=== PATIENT | male | born 1945 | race Caucasian/White ===

== ENCOUNTER → 2022-02-20 13:53 | Outpatient (CLI) | payer MEDICARE, SELFPAY ==
--- NOTE | ~2022-02-20 | CT_ITS ---
EXAMINATION: CT abdomen pelvis w con DATE: 02/20/2022 14:20 INDICATION: Leukocytosis. TECHNIQUE: Computed tomography (CT) of the abdomen and pelvis was performed with 100 mL Omnipaque 350 intravenous contrast. Automated exposure control and iterative reconstruction technique were employe d. The dose-length product was 1181.36 mGy-cm. COMPARISON: None. FINDINGS: The visualized portions of the lung bases are clear without pneumonia or pleural effusion. The heart size is normal. There are coronary artery calcifications. No pericardial effusion. There ar e pacer wires in right atrium and right ventricle. There are changes of median sternotomy. Right-side d gynecomastia is noted. The liver is normal. There are changes of cholecystectomy. There is an 8 mm low-attenuation lesion in the spleen, likely benign. The pancreas, adrenal glands, and kidneys are no rmal. There are scattered diverticula in the colon. There is fat stranding around a diverticulum of s igmoid colon with local bowel wall thickening, consistent with diverticulitis. There are no dilated l oops of bowel. The appendix is not visualized. There are no pathologically enlarged lymph nodes. Ther e is no free intraperitoneal fluid. There are old healed bilateral rib fractures. There is severe low er lumbar spondylosis. IMPRESSION: 1. Acute sigmoid diverticulitis. No perforation or abscess. Reviewed, dictated and finalized at location A.
[2022-02-20 14:13] LABS: Estimated Glomerular Filt Rate > 60
== END ==
PROVIDERS: Visit Provider Nurse Practitioner Gerontology
DX: K57.32 Diverticulitis of large intestine without perforation or abscess without bleeding (principal); D72.829 Elevated white blood cell count, unspecified; I25.10 Atherosclerotic heart disease of native coronary artery without angina pectoris; Z90.49 Acquired absence of other specified parts of digestive tract; M47.816 Spondylosis without myelopathy or radiculopathy, lumbar region
CPT/HCPCS: 74177; Q9967

== ENCOUNTER 2022-02-20 14:57 | Emergency (ER) | payer MEDICARE, SELFPAY ==
[2022-02-20] VITALS (11 sets, daily range): BP systolic 123–143; BP diastolic 61–71; PULSE 67–87; RESP 18–20; TEMP 36; O2SAT 93–97
--- NOTE | 2022-02-20 15:17 | ED.ABDPAIN ---
HPI - Abdominal Pain General Chief Complaint: Abdominal Pain Stated Complaint: diverticulitis Time Seen by Provider: 02/20/22 15:17 Source: patient Mode of arrival: ambulatory Limitations: no limitations History of Present Illness HPI narrative: Patient is a 76-year-old male with history of hypertension, presenting to the emergency department for evaluation of left lower quadrant abdominal pain. Patient developed symptoms 72 hours ago, was prophylactically placed on Cipro/Flagyl per his primary care physician's office, outpatient CT scan was ordered today which is notable for acute uncomplicated sigmoid diverticulitis, obtained at 2:45 PM on todayFebruary 20. Patient was ultimately referred to this facility for evaluation of his left lower quadrant abdominal pain by the nurse practitioner. Patient denies fever, chills, nausea or vomiting. Patient denies any dysuria or hematuria. He reports mild aching in the left flank but denies any history of nephrolithiasis. Patient is tolerating oral intake. He has not been taking anything for pain. He has only had 1 day of the Cipro/Flagyl. Related Data Allergies Allergy/AdvReac Type Severity Reaction Status Date / Time penicillin G Allergy Mild hives Verified 02/20/22 17:48 Penicillins Allergy Mild hives Verified 02/20/22 17:48 Review of Systems Review of Systems: CONSTITUTIONAL: Denies fever, chills, or sweats. EYES: Denies visual changes, redness, or discharge. ENT: Denies rhinorrhea, congestion, sore throat, or otalgia. CARDIOVASCULAR: Denies chest pain, palpitations, or edema. RESPIRATORY: Denies cough or dyspnea. GASTROINTESTINAL: Reports left lower quadrant abdominal pain without nausea, vomiting or diarrhea GENITOURINARY: Denies dysuria or hematuria. SKIN: Denies rash or itching. MUSCULOSKELETAL: Denies back pain, joint pain, or myalgia. NEUROLOGIC: Denies headache, numbness, or weakness. 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 History of [place] (myocardial infarction) History of stress test Major depressive disorder, recurrent, moderate MDD (major depressive disorder) Mixed hyperlipidemia Myocardial infarction Neuropathy Obesity (BMI 30-39.9) Presence of cardiac pacemaker Restless leg syndrome Surgical History Surgical History Bariatric surgery status History of left mastectomy S/P CABG x 3 S/P coronary artery stent placement Family History Family History Sibling Patient's sister is in good health Father Cerebrovascular accident Patient's father is Other Family history of cardiovascular disease Social History Social History Social History: Smoking status: Former smoker Tobacco type: cigarettes Second hand tobacco smoke exposure: No Smoking end date: 11/25/95 Alcohol intake: current Drinks per week: 5 Substance use: never Substance use type: does not use Gender identity (if verbalized by the patient): Male Sexual Orientation (if Verbalized by the Patient): Straight or Heterosexual Exam Narrative: GENERAL: Awake, alert, conversant HEAD: Normocephalic, atraumatic. EYES: PERRLA and EOMI. ENT: Nares clear, no rhinorrhea or epistaxis. Mucous membranes moist. NECK: Supple. CHEST: No respiratory distress, breathing even and non labored HEART: Regular rate, sinus rhythm ABDOMEN: Obese, Non distended, nontender in the right upper quadrant, right lower quadrant, left upper quadrant. There is tenderness without rebound in the left lower quadrant. No guarding, nonrigid. EXTREMITIES:
[2022-02-20] MEDS: SODIUM CHLORIDE 0.9% IV 1,000 ML 999 ML IV CONT ×2 (16:44→18:14)
[2022-02-20 17:06] LABS: Basophils Absolute Auto 0.1 K/mm3 (0.0-0.1); Basophils Percent Auto 0.4 % (0.2-1.2); Eosinophils Absolute Auto 0.2 K/mm3 (0-0.3); Eosinophils Percent Auto 1.5 % (0-4.4); Hematocrit 41.6 % (42.0-52.0); Hemoglobin 13.1 g/dL (14.0-18.0); Immature Granulocyte Absolute 0.07 K/mm3 (0.00-0.031); Immature Granulocyte Percent A 0.5 % (0-0.5); Lymphocytes Absolute Auto 2.19 K/mm3 (0.9-3.2); Lymphocytes Percent Auto 15.5 % (18.3-44.2); Mean Corpuscular HGB Conc 31.5 g/dl (32-36); Mean Corpuscular Hemoglobin 28.1 pg (26-34); Mean Corpuscular Volume 89.3 fl (80-100); Mean Platelet Volume 9.4 fl (7.4-10.4); Monocytes Percent Auto 7.1 % (2.6-8.5); Neutrophils Absolute Auto 10.6 K/mm3 (1.3-6.7); Platelet Count Result 224 k/mm3 (150-375); Red Blood Count 4.66 M/mm3 (4.6-6.20); Red Cell Distribution Width 13.2 % (11.5-14.5); White Blood Count 14.1 K/mm3 (4.5-10.0)
[2022-02-20 17:18] LABS: Alanine Aminotransferase 21 U/L (4-50); Albumin Level 4.2 g/dL (3.5-5.1); Alkaline Phosphatase 91 U/L (38-126); Anion Gap 7 mmol/L (8-16); Aspartate Amino Transferase 29 U/L (17-59); Bilirubin,Total 0.6 mg/dL (0.2-1.3); Blood Urea Nitrogen 21 mg/dL (9-20); Calcium 8.4 mg/dL (8.4-10.2); Carbon Dioxide 28 mmol/L (22-30); Chloride 103 mmol/L (98-107); Estimated CRCL calculation 94 ml/min; Estimated Glomerular Filt Rate > 60; Glucose 105 mg/dL (65-110); Lipase 98 U/L (23-300); Potassium 4.3 mmol/L (3.4-5.0); Sodium 138 mmol/L (137-145)
[2022-02-20] MEDS: oxyCODONE/ACETAMINOPHEN (*CRX) 5-325 MG TABLET 1 TABLET PO (18:13)
[2022-02-20 18:23] LABS: Appearance Urine Clear (Clear); Bilirubin Urine 1+ (Negative); Blood Urine 2+ (Negative); Color Urine Yellow (Yellow); Glucose Urine UA Negative (Negative); Ketones Urine Negative (Negative); Leukocyte Esterase Ur Negative LEU/UL (Negative); Nitrate Urine Negative (Negative); Protein Urine Trace mg/dL (Negative); Urobilinogen Urine 0.2 mg/dL (<2.0); pH Urine 5.5 (5.0-9.0)
[2022-02-20 18:29] LABS: Mucus Urine Rare /lpf; RBC Urine 0-2 /hpf (0-2); Squamous Epithelial Cell Urine Rare /hpf (Few); WBC Urine 0-3 /hpf
[2022-02-20 18:30] LABS: Add Urine Microscopic? YES
== END 2022-02-20 19:10 | disposition home or self-care (01) ==
LOC: ANHED 17:53
PROVIDERS: Emergency Provider Emergency Medicine; PCP Family Medicine
DX: K57.92 Diverticulitis of intestine, part unspecified, without perforation or abscess without bleeding (principal); R31.9 Hematuria, unspecified; I10 Essential (primary) hypertension; N40.0 Benign prostatic hyperplasia without lower urinary tract symptoms; I25.10 Atherosclerotic heart disease of native coronary artery without angina pectoris; K21.9 Gastro-esophageal reflux disease without esophagitis; I25.2 Old myocardial infarction; E78.2 Mixed hyperlipidemia; E66.9 Obesity, unspecified; Z68.38 Body mass index [BMI] 38.0-38.9, adult; Z95.0 Presence of cardiac pacemaker; G25.81 Restless legs syndrome; Z98.84 Bariatric surgery status; Z95.5 Presence of coronary angioplasty implant and graft; Z95.1 Presence of aortocoronary bypass graft; Z87.891 Personal history of nicotine dependence
CPT/HCPCS: 36415; 80053; 81001; 83690; 85025; 96361; 96365; 99284; A9270; J0131; J7030

== ENCOUNTER 2022-04-21 10:09 | Emergency (ER) | payer MEDICARE, SELFPAY ==
[2022-04-21 10:20] VITALS: BP 91/71; PULSE 81; RESP 20; TEMP 36.3; O2SAT 97
--- NOTE | 2022-04-21 10:51 | ED.URI ---
HPI - URI/Sore Throat General Chief Complaint: Upper Respiratory Infection Stated Complaint: cough, cold symptoms Time Seen by Provider: 04/21/22 10:41 Source: patient Mode of arrival: ambulatory Limitations: no limitations History of Present Illness HPI Narrative: Patient presents today complaining of 4-day history of nonproductive cough, body aches, low-grade fever up to 100, chest congestion, fatigue. Patient just returned from a golfing trip in [place] prior to onset of symptoms. He has been taking Aleve without relief. He has been vaccinated and boosted against COVID-19. Denies shortness of breath or chest pain. Denies history of COPD or asthma. He is a non-smoker. Related Data Allergies Allergy/AdvReac Type Severity Reaction Status Date / Time penicillin G Allergy Mild hives Verified 04/21/22 10:24 Penicillins Allergy Mild hives Verified 04/21/22 10:24 Review of Systems Review of Systems: CONSTITUTIONAL: + Body aches, fatigue, fever EYES: Denies visual changes, redness, or discharge. ENT: Denies rhinorrhea, sore throat, or otalgia.+ Congestion CARDIOVASCULAR: Denies chest pain, palpitations, or edema. RESPIRATORY: Denies dyspnea.+ Cough GASTROINTESTINAL: Denies abdominal pain, nausea, vomiting, or diarrhea. GENITOURINARY: Denies dysuria or hematuria. SKIN: Denies rash, itching, or wounds. MUSCULOSKELETAL: Denies back pain, joint pain, or myalgia. NEUROLOGIC: Denies headache, numbness, tingling, or weakness. PSYCH: Denies depression or anxiety. 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 History of [place] (myocardial infarction) History of stress test Major depressive disorder, recurrent, moderate MDD (major depressive disorder) Mixed hyperlipidemia Myocardial infarction Neuropathy Obesity (BMI 30-39.9) Presence of cardiac pacemaker Restless leg syndrome Surgical History Surgical History Bariatric surgery status History of left mastectomy S/P CABG x 3 S/P coronary artery stent placement Family History Family History Sibling Patient's sister is in good health Father Cerebrovascular accident Patient's father is Other Family history of cardiovascular disease Social History Social History Social History: Smoking status: Former smoker Tobacco type: cigarettes Second hand tobacco smoke exposure: No Smoking end date: 11/25/95 Alcohol intake: current Drinks per week: 5 Substance use: never Substance use type: does not use Gender identity (if verbalized by the patient): Male Sexual Orientation (if Verbalized by the Patient): Straight or Heterosexual Comments At time of signature, I have reviewed and agree with nursing past medical, surgical, social and family history unless otherwise noted. Please see nursing chart for further information. There is no relevant family history pertinent to the presenting complaint Exam Narrative: GENERAL: Mildly ill-appearing, well-nourished, and in no acute distress. HEAD: Normocephalic, atraumatic. EYES: EOMI. No redness or drainage. Conjunctivae normal. ENT: Mucous membranes pink and moist. Nares congested.. No rhinorrhea. TMs normal bilaterally. Throat normal. Uvula midline. NECK: Normal AROM. Supple. No lymphadenopathy. CHEST: No respiratory distress. Clear to auscultation. HEART: Regular rate and rhythm. No murmur appreciated. Normal peripheral pulses. EXTREMITIES: Normal range of motion. No edema. SKIN: Warm, dry, no rash. Capillary refill normal. Norm
== END 2022-04-21 11:07 | disposition home or self-care (01) ==
PROVIDERS: Emergency Provider Nurse Practitioner
DX: U07.1 COVID-19 (principal); N40.0 Benign prostatic hyperplasia without lower urinary tract symptoms; K21.9 Gastro-esophageal reflux disease without esophagitis; I25.2 Old myocardial infarction; E78.2 Mixed hyperlipidemia; G25.81 Restless legs syndrome; Z95.0 Presence of cardiac pacemaker; E66.9 Obesity, unspecified; Z68.36 Body mass index [BMI] 36.0-36.9, adult; G62.9 Polyneuropathy, unspecified; I25.10 Atherosclerotic heart disease of native coronary artery without angina pectoris; I10 Essential (primary) hypertension; F32.9 Major depressive disorder, single episode, unspecified
CPT/HCPCS: 87426; 99212; C9803; G0463

== ENCOUNTER 2025-04-30 06:47 | Outpatient (CLI) | payer MEDICARE, SELFPAY ==
--- NOTE | ~2025-04-30 | XR_ITS ---
XR hand BI arthritis min 3V 04/30/2025 07:14 Indication: Osteoarthritis. Procedure: 4 views each hand Comparison: No prior studies for comparison. Findings: Right: There is moderate polyarticular osteoarthritis. Degenerative changes most pronounced at the fi rst carpometacarpal and fifth interphalangeal joints. No acute fracture or traumatic malalignment. Left: There is moderate-severe polyarticular osteoarthritis, most pronounced at the first carpometaca rpal, first metacarpal phalangeal and second-fifth distal interphalangeal joints. No focal soft tissu e abnormality. No acute fracture. 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 Reviewed, dictated and finalized at location A. 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
--- OUTSIDE RECORDS SUMMARY | 2025-04-30 06:51 | XMS_ITS | CONTINUITY OF CARE DOCUMENT ---
Author Name suzannerobson suzannerobson Address Unknown Organization [facility] Address [address] [place] [address] Phone [phone] Care Team Providers Care Director Of Perioperative Services Name Role Phone Scott HASSAN, Shaq Unavailable [phone] BJ TORRES MD Unavailable [phone] BJ TORRES MD Unavailable [phone] PROBLEMS Condition Status Date Provider Notes Pacemaker: active Shaq Chavez MD (Sta tus post) Aftercare healing traumatic arm fracture active Shaq Chavez MD Cardiomyopathy active Shaq Chavez MD Sick sinus syndrome active Sunshine Lopez S/P Dual chamb PCM - Biotronik ( MRI Safe) active Linda Prescott Coronary Heart Disease active ? Shaq olguin MD Myocardial Infarction active ? Shaq nino MD (History of) Hyperlipidemia active ? Shaq Chavez MD Hypertension active ? Shaq Chavez MD Tobacco use, quit active Shaq Chavez MD Bradycardia sinus active Shaq Chavez MD Chest pain-type to be determined completed - David C Patience Angina active Jose Castaneda [employer] Obesity active Jose Castaneda [employer] Cough completed - David C Patience Shortness of breath active Madiha Perales [employer] PVC's active Sunshine Lopez Carotid bruits, bilateral active Sunshine Lopez Chest tightness completed - David Morin CABGx3 active Sunshine Lopez Syncope active Sunshine Lopez Dizziness active Taewon John Alcohol abuse active Yaakov Weaver Cardiology examination active Mat Morin ENCOUNTERS Date Type Provider Location Encounter Diag nosis - In-person encounter Office Visit Shaq Chavez MD [facility] Cardiology examination - In-person encounter Office Visit Shaq Chavez MD [facility] - In-person encounter Office Visit Shaq Chavez MD [facility] Alcohol abuse - In-person encounter Office Visit Shaq Chavez MD [facility] - In-person encounter Office Visit Shaq Chavez MD [facility] - In-person encounter Office Visit Shaq Chavez MD [facility] - In-person encounter Office Visit Shaq Chavez MD [facility] - In-person encounter Office Visit Shaq Chavez MD [facility] - In-person encounter Office Visit Shaq Chavez MD [facility] SyncopeDizziness - In-person encounter Office Visit Shaq Chavez MD [facility] - In-person encounter Office Visit Shaq Chavez MD [facility] CABGx3 - In-person encounter Office Visit Shaq Chavez MD [facility] Chest pain-type to be determinedCoughChe st tightness - In-person encounter Office Visit Shaq Chavez MD [facility] - In-person encounter Office Visit Shaq Chavez MD [facility] PVC'sCarotid bruits, bilateral - In-person encounter Office Visit Shaq Chavez MD [facility] - In-person encounter Office Visit Shaq Chavez MD [facility] - In-person encounter Office Visit Shaq Chavez MD [facility] Shortness of breath - In-person encounter Office Visit Shaq Chavez MD [facility] AnginaObesity - In-person encounter Office Visit Shaq Chavez MD [facility] - In-person encounter Office Visit Shaq Chavez MD [facility] - In-person encounter Office Visit Shaq Chavez MD [facility] - In-person encounter Office Visit Shaq Chavez MD [facility] Coronary Heart DiseaseMyocardial InfarctionHyperlipidemiaHypertensionTobacco use, quitBradycardia sinus VITAL SIGNS Date Observation Value Provider Body Mass Index (Ratio) 35.56 kg/m2 Franck palma Patience blood pressure, diastolic 74 mm[Hg] [facility] blood pressure, systolic 107 mm[Hg] Jennifer la [facility] oxygen saturation, oximetry 91 % [facility] pulse rate 81 /min [facility] blood [facility], cuff size regular [facility] weight E&M 277 [lb_av] [facility] height E&M 74 [in_i] [facility] Body Mass Index (Ratio) 36.97 kg/m2 Dayday Chavez MD blood pressure, diastolic 75 mm[Hg] Ke rri Greleazarneinaalida blood pressure, systolic 120 mm[Hg] Ker ri Grueneinaelder oxygen saturation, oximetry 94 % Anjelica Piterricinaalida pulse rate 87 /min [facility] weight E&M 288 [lb_av] [facility] height E&M 74 [in_i] Anjelica [facility] Body Mass Index (Ratio) 37.10 kg/m2 Yaakov Weaver blood pressure, resting Yes eJnn Breen [employer] blood pressure, cuff size large Ke rri Grueneinaeld blood pressure, diastolic 76 mm[Hg] Ke rri Grueneinaeld blood pressure, systolic 124 mm[Hg] Trent ri Betoeleazarricinaalida oxygen saturation, oximetry 93 % Anjelica Betosharonaalida respiratory rate E&M 16 /min Anjelica Sabrina finch pulse rate 98 /min Anjelica [facility] weight E&M 289 [lb_av] Anjelica [facility] height E&M 74 [in_i] Anjelica [facility] Body Mass Index (Ratio) 36.46 kg/m2 Yaakov Weaver blood pressure, diastolic 78 mm[Hg] An raiza Culp blood pressure, systolic 123 mm[Hg] Any heriberto Culp pulse rate 86 /min Valeria Culp blood pressure, cuff size large An raiza Culp oxygen saturation, oximetry 96 % Valeria Culp weight E&M 284 [lb_av] Valeria Culp height E&M 74 [in_i] Valeria Robbi Body Mass Index (Ratio) 36.32 kg/m2 Yaakov Weaver blood pressure, diastolic 81 mm[Hg] St lerma Benjamin blood pressure, systolic 106 mm[Hg] Faith vargas Benjamin oxygen saturation, oximetry 96 % Lara Benjamin respiratory rate E&M 18 /min Lara Demario jones pulse rate 90 /min Lara Benjamin weight E&M 282.9 [lb_av] Lara Benjamin height E&M 74 [in_i] Laraalicia Alexander Body Mass Index (Ratio) 37.36 kg/m2 Dayday Chavez MD blood pressure, cuff size large Ke rri Gruenenfalida blood pressure, diastolic 86 mm[Hg] Ke rri Gruenenfelder blood pressure, systolic 123 mm[Hg] Ker ri Gruenenfalida oxygen saturation, oximetry 96 % Anjelica Gruenenfalida respiratory rate E&M 16 /min Anjelica G richieeneinaelder pulse rate 76 /min Anjelica Grsharonae rosier weight E&M 291 [lb_av] Anjelica Gruenenfe lder height E&M 74 [in_i] Anjelica Gruenenfe lder Body Mass Index (Ratio) 38.51 kg/m2 Yaakov Weaver blood pressure, cuff size large Ke rri Gruenenfelder blood pressure, diastolic 80 mm[Hg] Ke rri Gruenenfelder blood pressure, systolic 122 mm[Hg] Ker ri Gruenenfelder oxygen saturation, oximetry 97 % Anjelica Gruenenfelder respiratory rate E&M 16 /min Anjelica G ruenenfelder pulse rate 93 /min Anjelica Emae lder weight E&M 300 [lb_av] Anjelica Emae lder height E&M 74 [in_i] Anjelica Emae er Body Mass Index (Ratio) 37.10 kg/m2 Taew on blood pressure, diastolic 76 mm[Hg] Li nkLogic blood pressure, systolic 124 mm[Hg] Belkis kLogic blood pressure, cuff size large Ke rri Gruenenfelder blood pressure, diastolic 76 mm[Hg] Ke rri Gruenenfelder blood pressure, systolic 124 mm[Hg] Trent Pérezeleazarmiguelelder oxygen saturation, oximetry 95 % Anjelica Booliuer respiratory rate E&M 16 /min Anjelica asnchezelder pulse rate 87 /min Anjelica Easton er weight E&M 289 [lb_av] Anjelica [facility]on er height E&M 74 [in_i] Anjelica Easton er blood pressure, diastolic 60 mm[Hg] Saroj Tan blood pressure, systolic 16 mm[Hg] Felicia Tan oxygen saturation, oximetry 94 % Betzaida Tan respiratory rate E&M 16 /min Doreen Tan pulse rate 43 /min Betzaida olsen weight E&M 289 [lb_av] Rey fragoso Body Mass Index (Ratio) 37.10 kg/m2 Taew on blood pressure, cuff size large Ke rri Gruenenfelder blood pressure, diastolic 70 mm[Hg] Ke rri Gruenenfelder blood pressure, systolic 102 mm[Hg] Ker ri Gruenenfelder oxygen saturation, oximetry 97 % Anjelica Gruenenfelder respiratory rate E&M 16 /min Anjelica G ruenenfelder pulse rate 68 /min [facility] weight E&M 289 [lb_av] Anjelica [facility] height E&M 74 [in_i] Anjelica [facility] Body Mass Index (Ratio) 39.67 kg/m2 [place] John blood pressure, cuff size regular [facility] blood pressure, diastolic 80 mm[Hg] [facility] blood pressure, systolic 140 mm[Hg] [facility] pulse rate 72 /min [facility] oxygen saturation, oximetry 94 % [facility] respiratory rate E&M 18 /min [facility] height E&M 74 [in_i] [facility] weight E&M 309 [lb_av] [facility] Body Mass Index (Ratio) 39.93 kg/m2 [place] blood pressure, cuff size large Ke rri Gruenenfelder blood pressure, diastolic 82 mm[Hg] Ke rri Gruenenfelder blood pressure, systolic 122 mm[Hg] Ker ri Gruenenfelder oxygen saturation, oximetry 93 % Anjelica Gruenenfelder respiratory rate E&M 16 /min Anjelica G ruenenfelder pulse rate 73 /min Anjelica [facility] weight E&M 311 [lb_av] Anjelica [facility] height E&M 74 [in_i] Anjelica Easton lder Body Mass Index (Ratio) 38.13 kg/m2 [place] John blood pressure, cuff size regular Cy aspen Taylor blood pressure, diastolic 79 mm[Hg] Cy aspen Taylor blood pressure, systolic 146 mm[Hg] Maddie alina Taylor oxygen saturation, oximetry 92 % Magoalina Taylor respiratory rate E&M 16 /min Magoalina Taylor pulse rate 84 /min Mago espinoza weight E&M 297 [lb_av] Mago espinoza height E&M 74 [in_i] Mago espinoza Body Mass Index (Ratio) 39.03 kg/m2 Jord en Anthony respiratory rate E&M 16 /min Mago Taylor pulse rate 60 /min Mago espinoza oxygen saturation, oximetry 93 % Mago Taylor blood pressure, cuff size regular Cy aspen Taylor blood pressure, diastolic 68 mm[Hg] Cy aspen Taylor blood pressure, systolic 140 mm[Hg] Maddie Taylor weight E&M 304 [lb_av] Mago espinoza height E&M 74 [in_i] Mago espinoza Body Mass Index (Ratio) 39.93 kg/m2 Aditya n Jamaalte blood pressure, diastolic 70 mm[Hg] Ke rri Gruenenfliuer blood pressure, systolic 122 mm[Hg] Trent ri Mani blood pressure, cuff size large Ke rri Gruenenfelder oxygen saturation, oximetry 96 % Anjelica Singleton respiratory rate E&M 20 /min Anjelica elizabeth pulse rate 79 /min Anjelica Easton lder weight E&M 311 [lb_av] Anjelica Pérezeleazarmiguelester er height E&M 74 [in_i] Anjelica Pérezsharonaester er Body Mass Index (Ratio) 38.90 kg/m2 Dayday Chavez MD blood pressure, diastolic 70 mm[Hg] Saroj rouse [facility] blood pressure, systolic 102 mm[Hg] Felicia sha [facility] oxygen saturation, oximetry 97 % Pretty [facility] respiratory rate E&M 18 /min Pretty [facility] pulse rate 73 /min Pretty [facility] weight E&M 303 [lb_av] Pretty [place] height E&M 74 [in_i] Pretty [place] Body Mass Index (Ratio) 39.03 kg/m2 Dayday Chavez MD blood pressure, cuff size regular [facility] blood pressure, diastolic 70 mm[Hg] [facility] blood pressure, systolic 112 mm[Hg] [facility], [facility] 97 % [facility] respiratory rate E&M 17 /min [facility] pulse rate 56 /min [facility] weight E&M 304 [lb_av] [facility] [in_i] [facility] Body Mass Index (Ratio) 39.16 kg/m2 Dayday Chavez MD blood pressure, diastolic 70 mm[Hg] Saroj rouse [facility] blood pressure, systolic 110 mm[Hg] Felicia solano [facility] oxygen saturation, oximetry 96 % Pretty [facility] respiratory rate E&M 18 /min Pretty [facility] pulse rate 69 /min Pretty [place] weight E&M 305 [lb_av] Pretty Arreguin height E&M 74 [in_i] Pretty Arreguin Body Mass Index (Ratio) 39.54 kg/m2 Dayday Chavez MD blood pressure, resting Yes Zandra hinton [place] blood pressure, diastolic 82 mm[Hg] Kashmir samuel [place] blood pressure, systolic 120 mm[Hg] Dianna edward [place] oxygen saturation, oximetry 95 % [facility] 16 /[facility] 68 /[facility] E&M 308 [lb_av] Gordon [place] height E&M 74 [in_i] Jessica [place] blood pressure, diastolic 60 mm[Hg] Saroj Melonie Tan blood pressure, systolic 146 mm[Hg] Felicia Tan pulse rate 59 /min Betzaida olsen oxygen saturation, oximetry 94 % Betzaida Tan respiratory rate E&M 18 /min Doreen Tan Body Mass Index (Ratio) 39.05 kg/m2 Ivania Tan weight E&M 304.2 [lb_av] Betzaida greco height E&M 74 [in_i] Betzaida olsen ALLERGIES Allergy Name Onset Date Reaction Criticality Status GRASS Low Criticality active PENICILLIN Low Criticality active RESULTS Date Observation Value Provider Reference Range Interpretation Location prostate specific antigen (PSA) complex 1.4 ng/mL [facility] 0.0-3.6 magnesium, serum 2.3 mg/dL [facility] 1.6-2.3 alanine aminotransferase (SGPT), serum 25 1/L [facility] 0-44 aspartate aminotransferase (SGOT), serum 29 1/L [facility] 0-40 alkaline phosphatase, serum 71 1/L [facility] 44-121 bilirubin, serum, total 0.4 mg/dL [facility] 0.0-1.2 globulin, serum 2.6 [facility] 1.5-4.5 albumin, serum 4.0 g/dL [facility] 3.7-4.7 protein, total, serum 6.6 g/dL [facility] 6.0-8.5 calcium, serum 9.1 mg/dL [facility] 8.6-10.2 carbon dioxide, venous blood 26 mmol/L [facility] 20-29 chloride, serum 100 mmol/L [facility] 96-106 potassium, serum 4.9 mmol/L [facility] 3.5-5.2 sodium, serum 138 mmol/L [facility] 218-200 9896/10 /17 urea nitrogen/creatinine ratio, serum 15 [facility] 10-24 creatinine, serum 0.95 mg/dL [facility] 0.76-1.27 urea nitrogen, blood 14 mg/dL [facility] 8-27 blood glucose, random 159 mg/dL [facility] 70-99 High prostate specific antigen (PSA) complex 1.2 ng/mL [facility] 0.0-3.6 platelet count 243 X10E3/UL [facility] 021-526 4174/08 /10 red blood cell distribution width 13.7 % [facility] 11.6-15.4 mean corpuscular hemoglobin concentration, RBC 33.3 G/DL [facility] 31.5-35.7 mean corpuscular hemoglobin, RBC 29.1 pg [facility] 26.6-33.0 mean corpuscular volume, RBC 87 fL [facility] 79-97 hematocrit, blood 40.2 % [facility] 37.5-51.0 hemoglobin, blood 13.4 g/dL [facility] 13.0-17.7 erythrocyte (RBC) count 4.61 X10E6/UL [facility] 4.14-5.80 leukocyte count, blood 10.2 X10E3/UL [facility] 3.4-10.8 magnesium, serum 2.8 mg/dL [facility] 1.6-2.3 High free thyroxine index 2.0 [facility] 1.2-4.9 triiodothyronine resin uptake 30 % [facility] 24-39 thyroxine, serum, total 6.6 ug/dL [facility] 4.5-12.0 thyroid stimulating hormone, serum 2.550 u[IU]/mL [facility] 0.450-4.500 lipoprotein, beta, serum, point, quantitative, calculated 56 mg/dL [facility] 0-99 HDL cholesterol, serum 31 mg/dL [facility] >39 Low triglyceride, serum, random 135 mg/dL [facility] 0-149 cholesterol, serum 111 mg/dL [facility] 361-661 6679/08 /10 alanine aminotransferase (SGPT), serum 18 1/L [facility] 0-44 aspartate aminotransferase (SGOT), serum 20 1/L [facility] 0-40 alkaline phosphatase, serum 93 1/L [facility] 44-121 bilirubin, serum, total 0.5 mg/dL [facility] 0.0-1.2 albumin/globulin ratio, serum 1.8 [facility] 1.2-2.2 globulin, serum 2.4 [facility] 1.5-4.5 albumin, serum 4.2 g/dL [facility] 3.7-4.7 protein, total, serum 6.6 g/dL [facility] 6.0-8.5 calcium, serum 9.0 mg/dL [facility] 8.6-10.2 carbon dioxide, venous blood 24 mmol/L [facility] 20-29 chloride, serum 102 mmol/L [facility] 96-106 potassium, serum 5.1 mmol/L [facility] 3.5-5.2 sodium, serum 141 mmol/L [facility] 020-162 7634/08 /10 urea nitrogen/creatinine ratio, serum 27 [facility] 10-24 High creatinine, serum 1.16 mg/dL [facility] 0.76-1.27 urea nitrogen, blood 31 mg/dL [facility] 8-27 High blood glucose, random 114 mg/dL [facility] 65-99 High free thyroxine index 1.4 [facility] 1.2-4.9 triiodothyronine resin uptake 29 % [facility] 24-39 thyroxine, serum, total 4.9 ug/dL [facility] 4.5-12.0 thyroid stimulating hormone, serum 17.400 u[IU]/mL [facility] 0.450-4.500 High activated partial thromboplastin time (aPTT) 33 s [facility] 24-33 prothrombin time (patient) 10.9 s [facility] 9.1-12.0 international normalized ratio (INR) 1.0 [facility] 0.9-1.2 platelet count 242 X10E3/UL [facility] 782-797 9182/07 /03 red blood cell distribution width 12.6 % [facility] 11.6-15.4 mean corpuscular hemoglobin concentration, RBC 31.1 G/DL [facility] 31.5-35.7 Low mean corpuscular hemoglobin, RBC 27.4 pg [facility] 26.6-33.0 mean corpuscular volume, RBC 88 fL [facility] 79-97 hematocrit, blood 37.9 % [facility] 37.5-51.0 hemoglobin, blood 11.8 g/dL [facility] 13.0-17.7 Low erythrocyte (RBC) count 4.30 X10E6/UL [facility] 4.14-5.80 leukocyte count, blood 7.6 X10E3/UL [facility] 3.4-10.8 alanine aminotransferase (SGPT), serum 14 1/L [facility] 0-44 aspartate aminotransferase (SGOT), serum 22 1/L [facility] 0-40 alkaline phosphatase, serum 73 1/L [facility] 48-121 bilirubin, serum, total <0.2 mg/dL [facility] 0.0-1.2 albumin/globulin ratio, serum 1.2 [facility] 1.2-2.2 globulin, serum 3.1 [facility] 1.5-4.5 albumin, serum 3.8 g/dL [facility] 3.7-4.7 protein, total, serum 6.9 g/dL [facility] 6.0-8.5 calcium, serum 9.0 mg/dL [facility] 8.6-10.2 carbon dioxide, venous blood 26 mmol/L [facility] 20-29 chloride, serum 102 mmol/L [facility] 96-106 potassium, serum 5.3 mmol/L [facility] 3.5-5.2 High sodium, serum 141 mmol/L [facility] 194-137 3820/07 /03 urea nitrogen/creatinine ratio, serum 21 [facility] 10-24 eGFR if 76 mL/min/{1.73_ m2} [facility] >59 eGFR if not 66 mL/min/{1.73_ m2} [facility] >59 creatinine, serum 1.08 mg/dL [facility] 0.76-1.27 urea nitrogen, blood 23 mg/dL [facility] 8-27 blood glucose, random 103 mg/dL [facility] 65-99 High free thyroxine index 1.8 [facility] 1.2-4.9 triiodothyronine resin uptake 30 % [facility] 24-39 thyroxine, serum, total 5.9 ug/dL [facility] 4.5-12.0 thyroid stimulating hormone, serum 3.410 u[IU]/mL [facility] 0.450-4.500 lipoprotein, beta, serum, point, quantitative, calculated 50 mg/dL [facility] 0-99 HDL cholesterol, serum 32 mg/dL [facility] >39 Low triglyceride, serum, random 133 mg/dL [facility] 0-149 cholesterol, serum 106 mg/dL [facility] 222-558 2342/03 /13 alanine aminotransferase (SGPT), serum 16 1/L [facility] 0-44 aspartate aminotransferase (SGOT), serum 21 1/L [facility] 0-40 alkaline phosphatase, serum 76 1/L [facility] 39-117 bilirubin, serum, total 0.4 mg/dL [facility] 0.0-1.2 albumin/globulin ratio, serum 1.4 [facility] 1.2-2.2 globulin, serum 2.8 [facility] 1.5-4.5 albumin, serum 4.0 g/dL [facility] 3.7-4.7 protein, total, serum 6.8 g/dL [facility] 6.0-8.5 calcium, serum 9.2 mg/dL [facility] 8.6-10.2 carbon dioxide, venous blood 26 mmol/L [facility] 20-29 chloride, serum 103 mmol/L [facility] 96-106 potassium, serum 5.1 mmol/L [facility] 3.5-5.2 sodium, serum 143 mmol/L [facility] 365-008 3107/03 /13 urea nitrogen/creatinine ratio, serum 11 [facility] 10-24 eGFR if 91 mL/min/{1.73_ m2} [facility] >59 eGFR if not 79 mL/min/{1.73_ m2} [facility] >59 creatinine, serum 0.93 mg/dL [facility] 0.76-1.27 urea nitrogen, blood 10 mg/dL [facility] 8-27 blood glucose, random 113 mg/dL [facility] 65-99 High pro brain natriuretic peptide 628 pg/mL [facility] 0-486 High activated partial thromboplastin time (aPTT) 35 s [facility] 24-33 High prothrombin time (patient) 10.6 s [facility] 9.1-12.0 international normalized ratio (INR) 1.0 [facility] 0.9-1.2 platelet count 239 X10E3/UL [facility] 458-207 1797/03 /13 red blood cell distribution width 13.1 % [facility] 11.6-15.4 mean corpuscular hemoglobin concentration, RBC 31.4 G/DL [facility] 31.5-35.7 Low mean corpuscular hemoglobin, RBC 29.0 pg [facility] 26.6-33.0 mean corpuscular volume, RBC 92 fL [facility] 79-97 hematocrit, blood 41.7 % [facility] 37.5-51.0 hemoglobin, blood 13.1 g/dL [facility] 13.0-17.7 erythrocyte (RBC) count 4.52 X10E6/UL [facility] 4.14-5.80 leukocyte count, blood 8.9 X10E3/UL [facility] 3.4-10.8 prostate specific antigen (PSA) complex 0.8 ng/mL [facility] 0.0-3.6 lipoprotein, beta, serum, point, quantitative, calculated 60 mg/dL [facility] 0-99 very low density lipoproteins 36 mg/dL [facility] 5-40 HDL cholesterol, serum 37 mg/dL [facility] >39 Low triglyceride, serum, random 181 mg/dL [facility] 0-149 High cholesterol, serum 133 mg/dL [facility] 098-078 5984/08 /15 platelet count 257 X10E3/UL [facility] 841-674 2390/08 /15 red blood cell distribution width 12.6 % [facility] 11.6-15.4 mean corpuscular hemoglobin concentration, RBC 33.4 G/DL [facility] 31.5-35.7 mean corpuscular hemoglobin, RBC 30.6 pg [facility] 26.6-33.0 mean corpuscular volume, RBC 92 fL [facility] 79-97 hematocrit, blood 43.1 % [facility] 37.5-51.0 hemoglobin, blood 14.4 g/dL [facility] 13.0-17.7 erythrocyte (RBC) count 4.71 X10E6/UL [facility] 4.14-5.80 leukocyte count, blood 12.1 X10E3/UL [facility] 3.4-10.8 High alanine aminotransferase (SGPT), serum 22 1/L [facility] 0-44 aspartate aminotransferase (SGOT), serum 22 1/L [facility] 0-40 alkaline phosphatase, serum 77 1/L [facility] 39-117 bilirubin, serum, total 0.3 mg/dL [facility] 0.0-1.2 albumin/globulin ratio, serum 1.4 [facility] 1.2-2.2 globulin, serum 2.9 [facility] 1.5-4.5 albumin, serum 4.2 g/dL [facility] 3.7-4.7 protein, total, serum 7.1 g/dL [facility] 6.0-8.5 calcium, serum 9.0 mg/dL [facility] 8.6-10.2 carbon dioxide, venous blood 29 mmol/L [facility] 20-29 chloride, serum 98 mmol/L [facility] 96-106 potassium, serum 5.0 mmol/L [facility] 3.5-5.2 sodium, serum 139 mmol/L [facility] 185-198 2457/08 /15 urea nitrogen/creatinine ratio, serum 24 [facility] 10-24 eGFR if 85 mL/min/{1.73_ m2} [facility] >59 eGFR if not 74 mL/min/{1.73_ m2} [facility] >59 creatinine, serum 0.99 mg/dL [facility] 0.76-1.27 urea nitrogen, blood 24 mg/dL [facility] 8-27 blood glucose, random 78 mg/dL [facility] 65-99 prostate specific antigen (PSA) complex 0.6 ng/mL [facility] 0.0-3.6 alanine aminotransferase (SGPT), serum 13 1/L [facility] 9-46 Normal aspartate aminotransferase (SGOT), serum 19 1/L [facility] 10-35 Normal alkaline phosphatase, serum 77 1/L [facility] 40-115 Normal bilirubin, serum, total 0.4 mg/dL [facility] 0.2-1.2 Normal albumin/globulin ratio, serum 1.3 (calc) [facility] 1.0-2.5 Normal globulins, serum, total 2.9 G/DL (CALC) [facility] 1.9-3.7 Normal albumin, serum 3.9 g/dL [facility] 3.6-5.1 Normal protein, total, serum 6.8 g/dL [facility] 6.1-8.1 Normal calcium, serum 9.0 mg/dL [facility] 8.6-10.3 Normal carbon dioxide, venous blood 28 mmol/L [facility] 20-31 Normal chloride, serum 105 mmol/L [facility] 98-110 Normal potassium, serum 4.7 mmol/L [facility] 3.5-5.3 Normal sodium, serum 141 mmol/L [facility] 135-146 Normal urea nitrogen/creatinine ratio, serum NOT APPLICABLE (calc) [facility] 6-22 Estimated Glomerular Filtration Rate (calc) 96 mL/min/{1.73_ m2} [facility] > OR = 60 Normal creatinine, serum 0.91 mg/dL [facility] 0.70-1.18 Normal urea nitrogen, blood 21 mg/dL [facility] 7-25 Normal blood glucose, random 114 mg/dL [facility] 65-99 High cholesterol, non-HDL, total 111 MG/DL (CALC) [facility] <130 Normal cholesterol/HDL ratio, serum, percent 4.2 (calc) [facility] <5.0 Normal LDL cholesterol, serum 89 MG/DL (CALC) [facility] Normal triglyceride, serum, fasting 123 mg/dL [facility] <150 Normal HDL cholesterol, serum 35 mg/dL [facility] >40 Low cholesterol, serum 146 mg/dL [facility] <200 Normal lipoprotein, beta, serum, point, quantitative, calculated 83 mg/dL [facility] 0-99 very low density lipoproteins 24 mg/dL [facility] 5-40 HDL cholesterol, serum 35 mg/dL [facility] >39 Low triglyceride, serum, random 121 mg/dL [facility] 0-149 cholesterol, serum 142 mg/dL [facility] 313-331 4497/01 /09 basophil count, absolute 0.0 x10E3/uL [facility] 0.0-0.2 Eosinophil Absolute Count 0.2 X10E3/UL [facility] 0.0-0.4 monocyte count, blood, automated 0.7 X10E3/UL [facility] 0.1-0.9 lymphocyte count, blood, automated 2.2 X10E3/UL [facility] 0.7-3.1 Absolute Neutrophils 6.4 X10E3/UL [facility] 1.4-7.0 basophils as percent of blood leukocytes 0 % [facility] Not Estab. eosinophils as percent of blood leukocytes 2 % [facility] Not Estab. monocytes as percent of blood leukocytes 7 % [facility] Not Estab. lymphocytes as percent of blood leukocytes 23 % [facility] Not Estab. neutrophils as percent of blood leukocytes 68 % [facility] Not Estab. platelet count 237 X10E3/UL [facility] 231-350 7979/01 /09 red blood cell distribution width 13.7 % [facility] 12.3-15.4 mean corpuscular hemoglobin concentration, RBC 35.3 G/DL [facility] 31.5-35.7 mean corpuscular hemoglobin, RBC 30.4 pg [facility] 26.6-33.0 mean corpuscular volume, RBC 86 fL [facility] 79-97 hematocrit, blood 42.2 % [facility] 37.5-51.0 hemoglobin, blood 14.9 g/dL [facility] 13.0-17.7 erythrocyte (RBC) count 4.90 X10E6/UL [facility] 4.14-5.80 leukocyte count, blood 9.6 X10E3/UL [facility] 3.4-10.8 alanine aminotransferase (SGPT), serum 17 1/L [facility] 0-44 aspartate aminotransferase (SGOT), serum 24 1/L [facility] 0-40 alkaline phosphatase, serum 87 1/L [facility] 39-117 bilirubin, serum, total 0.4 mg/dL [facility] 0.0-1.2 albumin/globulin ratio, serum 1.3 [facility] 1.2-2.2 globulin, serum 3.4 [facility] 1.5-4.5 albumin, serum 4.3 g/dL [facility] 3.5-4.8 protein, total, serum 7.7 g/dL [facility] 6.0-8.5 calcium, serum 9.5 mg/dL [facility] 8.6-10.2 carbon dioxide, venous blood 26 mmol/L [facility] 18-29 chloride, serum 98 mmol/L [facility] 96-106 potassium, serum 4.7 mmol/L [facility] 3.5-5.2 sodium, serum 140 mmol/L [facility] 380-030 1190/01 /09 urea nitrogen/creatinine ratio, serum 21 [facility] 10-24 eGFR if not 74 mL/min/{1.73_ m2} [facility] >59 creatinine, serum 1.00 mg/dL [facility] 0.76-1.27 urea nitrogen, blood 21 mg/dL [facility] 8-27 blood glucose, random 112 mg/dL [facility] 65-99 High HISTORY OF MEDICATION USE Medication Status Instructions Dates Provider Indications Com ments metformin (Glucophage XR) 500 mg tablet extended release 24 hr active Edil Oakes levothyroxine 25 mcg tablet active Edil Oakes FeroSul 325 mg (65 mg iron) tablet active Edil Oakes losartan 50 mg tablet active Take 1 Tablet (50 mg) by mouth daily. 12/16 Kyamado Navarro magnesium oxide 400 mg (241.3 mg magnesium) tablet active Take 1 tablet by mouth twice a day Farheen Breen NP metoprolol succinate 25 mg tablet extended release 24 hr active Take 1 Tablet (25 mg) by mouth daily at bedtime. 01/10 Dima Aguilaram losartan 50 mg tablet completed Take 1/2 Tablet by mouth daily. 01/10 - 12/16 Dima Navarro Jardiance 10 mg tablet active Take 1 tablet by mouth every other day (due to the cost) 12/11 Farheen Breen NP atorvastatin 40 mg tablet active TAKE ONE TABLET BY MOUTH ONCE DAILY 06/27 Dima Navarro losartan 25 mg tablet completed Take 1 Tablet (50 mg) by mouth daily. 03/27 - 01/10 Anjelica Singleton Toprol XL 25 mg tablet extended release 24 hr completed Take 1 tablet by mouth at bedtime 03/22 - 01/10 Anjelica Gabbyer Jardiance 10 mg tablet completed Take 1 tablet by mouth once a day 07/17 - 12/11 Heaven Rushing Cardiomyopathy losartan 50 mg tablet completed 1 tablet by mouth once a day 07/04 - 03/27 Heaven Rushing Hypertension metoprolol tartrate 25 mg tablet completed TAKE 1 TABLET BY MOUTH ONCE DAILY 06/12 - 03/22 Farheen Breen NP clopidogrel 75 mg tablet active TAKE ONE TABLET BY MOUTH ONCE DAILY 03/27 Heaven Rushing clindamycin HCl 300 mg capsule completed Take 1 capsule by mouth three times a day 06/10 - 03/22 Farheen Breen NP clindamycin HCl unspecified unspecified completed - 03/22 Farheen Breen NP Percocet 5-325 mg tablet completed Take 1 tablet by mouth every eight hours as needed for pain 06/10 - 06/17 Shaq Chavez MD magnesium oxide 400 mg (241.3 mg magnesium) tablet completed 1 tablet once a day 03/24 - Farheen Breen NP potassium chloride 20 mEq tablet,ER particles/stormy ls completed 1 tablet once a day 03/24 - Farheen Breen NP METOPROLOL TARTRATE 25 MG ORAL TABLET completed one QUARTER tab. twice daily 03/24 - 05/25 Shaq Chavez MD Lasix 40 mg tablet active Take 1 once a day 03/24 Farheen Breen NP cholecalciferol (vitamin D3) 125 mcg (5,000 unit) capsule active 1 tablet by mouth once a day 03/24 Anjelica Singleton AMIODARONE HCL 200 MG ORAL TABLET completed ONE pills a day. decreased dose. 03/24 - 05/25 Shaq Chavez MD ISOSORBIDE MONONITRATE ER 30 MG ORAL TABLET EXTENDED RELEASE 24 HOUR completed one tab. daily 02/03 - 06/10 Anjelica Singleton ISOSORBIDE MONONITRATE ER 30 MG ORAL TABLET EXTENDED RELEASE 24 HOUR completed one tab. daily 02/03 - 02/08 David Morin atorvastatin 40 mg tablet completed 1 tablet once a day 01/20 - 06/27 Replaced By [facility] Specialist per pcp CLINDAMYCIN HCL 300 MG ORAL CAPSULE completed one tablet three times a day for 10 days 06/12 - 06/10 Anjelica Singleton FLONASE 50 MCG/ACT NASAL SUSPENSION completed 2 spray into both nostrils as needed 06/13 - Farheen Breen NP losartan 100 mg tablet completed Take 1 tablet once a day 01/07 - 01/05 Sunshine Lopez discontinue the lisinopril/H CTZ clopidogrel 75 mg tablet completed Take 1 tablet by mouth once a day 03/14 - 03/27 Tia Yazan NITROSTAT 0.4 MG SUBLINGUAL TABLET SUBLINGUAL completed apply one tab under tongue every 5 minutes for 3 total doses as needed for chest pain. If no relief after 3rd dose, go to ER 08/22 - 06/10 Anjelica Singleton TWTIMOTHY BRILINTA 90 MG ONE TAB TWICE A DAY completed - 12/31 Leslie DOUGLASS ASPIRIN 81 MG ONE TAB DAILY completed - 12/31 Leslie Deng NITROLINGUAL 0.4 MG/SPRAY TRANSLINGUAL SOLUTION completed One spray as needed each 5 min for chest discomfort- max 3 sprays in 24 hours 08/22 - 11/30 Raissa Bateman RN changing to tabs per insurance coverage ISOSORBIDE MONONITRATE ER 30 MG ORAL TABLET EXTENDED RELEASE 24 HOUR completed Take 1 tab daily 08/22 - 12/11 Pretty Unique'Shant AMLODIPINE BESYLATE 2.5 MG ORAL TABLET completed Take 1 Tab Daily 08/22 - 08/22 Raissa Bateman RN has interaction w zocor changing to imdur pantoprazole 40 mg tablet,delayed release (DR/EC) completed Take 1 tablet by mouth once a day NEEDED 01/22 - Farheen Breen NP citalopram 20 mg tablet active once a day Betzaida Tan aspirin 81 mg tablet,delayed release (DR/EC) active 1 tablet by mouth once a day Betzaida Tna ZOCOR 40 MG ORAL TABLET completed ONE TAB. AT BEDTIME 11/25 - 01/20 Princess Griffin gabapentin 300 mg capsule active 1 tablet once a day Betzaida Tan LISINOPRIL-HYDRO CHLOROTHIAZIDE 10-12.5 MG ORAL TABLET completed ONE TAB. DAILY 11/25 - 12/26 Abeba Madera RN PLAVIX 75 MG ORAL TABLET completed ONE TAB. DAILY - Leslie Deng SOCIAL HISTORY Date Observation Value Provider smoking, year quit 1979 Edil guardado number of years as a smoker 15 a Edil Oakes smoking history, tot al pack/day 1 Edil Oakes cigarette use yes Edil Tierney smoking status Former smoker Edil gutierrez smoking, year quit 1979 Yaakov brito number of years as a smoker 15 a Yaakov Weaver smoking history, tot al pack/day 1 Yaakov Weaver cigarette use yes Yaakov Weaver smoking status Former smoker Yaakov Coles sorin smoking, year quit 1979 Farheen Murillor [employer] number of years as a smoker 15 a Farheen Breen [employer] smoking history, tot al pack/day 1 Farheen Breen [employer] cigarette use yes Farheen Ramirezeduardo er [employer] smoking status Former smoker Farheen Ramirez eduardoer [employer] Exercise counseling Yes Farheen Ramirezmundo [employer] pacemaker surgery, hx of Pacemaker Surger y,Hx of Shaq Chavez MD social history E&M S moking History: Zurdo menendez is a former smoker. Yaakov Weaver social history reviewed E&M revi ewed - no changes required Yaakov Weaver smoking status Former smoker Valeria young smoking, year quit 1979 Valeriaheriberto walters number of years as a smoker 15 a Valeria Robbi smoking history, tot al pack/day 1 Valeriaheriberto Culp cigarette use yes Valeria Culp number of years as a smoker 15 a Farheen Murillobetty [employer] smoking history, tot al pack/day 1 Farheen Murillobetty [employer] smoking, year quit 1979 Lara liz cigarette use yes Lara Alexander smoking status Former smoker Lara Alexander social history E&M S moking History: Zurdo menendez is a former smoker. Oracio Bosch social history reviewed E&M revi ewed - no changes required Oracio Bosch smoking, year quit 1979 Anjelica griffith cigarette use yes Anjelica irwin smoking status Former smoker Anjelica rener social history reviewed E&M revi ewed - no changes required Yaakov Weaver social history E&M S moking History: Zurdo menendez is a former smoker. Sunshine Lopez social history reviewed E&M revi ewed - no changes required Ab[place]on John smoking, year quit 1980 Anjelica Altamirano enannaleefelder cigarette use yes Anjelica irwin smoking status Former smoker Anjelica Law [facility] social history reviewed E&M revi ewed - no changes required Abaewon John social history reviewed E&M revi ewed - no changes required Sunshine Lopez social history E&M S moking History: Zurdo menendez is a former smoker. Sunshine Lopez social history reviewed E&M revi ewed - no changes required Abaewmiguel angel Lopez smoking, year quit 1979 Anjelica Altamirano enannaleefelder cigarette use yes Anjelica irwin smoking status Former smoker Anjelica Law [facility] social history E&M S moking History: Zurdo menendez is a former smoker. David Joan Patience social history reviewed E&M revi ewed - no changes required David Joan Patience smoking, year quit 1979 Dawn West sby cigarette use yes Dawn Nancy smoking status Former smoker Dwan Puckettby social history E&M S moking History: Zurdo menendez is a former smoker. Sunshine Lopez social history reviewed E&M revi ewed - no changes required Sunshine Lopez smoking, year quit 1980 Anjelica Altamirano enannaleefelder cigarette use yes Anjelica irwin smoking status Former smoker [facility] Law [facility] social history E&M S moking History: Zurdo menendez is a former smoker. Sunshine Lopez social history reviewed E&M revi ewed - no changes required Sunshine Lopez smoking status Former smoker Mago stephenson smoking, year quit 1980 Mago sutton cigarette use yes Mago Olvera social history reviewed E&M revi ewed - no changes required Byron Cruz smoking, year quit 1980 Mago sutton cigarette use yes Mago Olvera ll smoking status Former smoker Mago stephenson social history E&M S moking History: Zurdo menendez is a former smoker. Akil Nguyen social history reviewed E&M revi ewed - no changes required Akil Hintonte smoking, year quit 1979 Anjelica Altamirano enannaleefeldcher cigarette use yes Anjelica Lawnf [facility] smoking status Former smoker Anjelica Law [facility] number of grandchildren Shaq Perales NP social history reviewed E&M revi ewed - no changes required Madiha Perales NP social history E&M S moking History: Zurdo menendez is a former smoker. Madiha Perales NP smoking status Former smoker Pretty Perez l social history reviewed E&M revi ewed - no changes required Jose Castaneda NP smoking, year quit 1980 Dawn Jenna phillip cigarette use yes Dawn Puckettby smoking status Former smoker Dawn Nancy social history reviewed E&M revi ewed - no changes required Shaq Chavez MD smoking status Former smoker Pretty Perez l social history reviewed E&M revi ewed - no changes required Shaq Cahvez MD social history E&M Smoking Histo ry: Zurdo menendez is a former smoker. Shaq Chavez MD social history reviewed E&M revi ewed - no changes required Shaq Chavez MD smoking, year quit 1979 Betzaida Sharmaenson cigarette use yes Betzaida greco smoking status Former smoker Betzaida Chau FUNCTIONAL STATUS Date Observation Value Provider HRA, CV Assess/Plan, Angina (inactive) Management Plan continue current therapy Edil Oakes HRA, CV Assess/Plan, Angina (inactive) Management Plan continue current therapy Yaakov Ahmedzai HRA, CV Assess/Plan, Angina (inactive) Management Plan continue current therapy Farheen Breen NP HRA, CV Assess/Plan, Angina (inactive) Management Plan continue current therapy Yaakov Ahmedzai HRA, CV Assess/Plan, Angina (inactive) Management Plan continue current therapy Farheen Breen NP HRA, CV Assess/Plan, Angina (inactive) Management Plan continue current therapy Oracio Bosch HRA, CV Assess/Plan, Angina (inactive) Management Plan continue current therapy Yaakov Ahmedzai HRA, CV Assess/Plan, Angina (inactive) Management Plan continue current therapy Nette Mcbride NP HRA, CV Assess/Plan, Angina (inactive) Management Plan continue current therapy Taewon John HRA, CV Assess/Plan, Angina (inactive) Management Plan continue current therapy Taewon John HRA, CV Assess/Plan, Angina (inactive) Management Plan continue current therapy Taewon John HRA, CV Assess/Plan, Angina (inactive) Management Plan continue current therapy David Franco Mod[place] HRA, CV Assess/Plan, Angina (inactive) Management Plan continue current therapy, antianginal therapy Taewon John HRA, CV Assess/Plan, Angina (inactive) Management Plan continue current therapy Taewon John HRA, CV Assess/Plan, Angina (inactive) Management Plan continue current therapy Byron Cruz HRA, CV Assess/Plan, Angina (inactive) Management Plan continue current therapy Akil Nguyen HRA, CV Assess/Plan, Angina (inactive) Management Plan continue current therapy, antianginal therapy Madiha Perales [employer] HRA, CV Assess/Plan, Angina (inactive) Management Plan antianginal therapy Jose Castaneda [employer] HRA, CV Assess/Plan, Angina (inactive) Management Plan continue current therapy Shaq Chavez MD FAMILY HISTORY Family Member Condition Father Family History of Co ronary Artery Disease: INSURANCE PROVIDERS Payer name Policy type / Coverage type Lasha red republican ID [employer] PPO O [id number] ADVANCE DIRECTIVES Name Date DISCUSSED - NO DECISION MADE TREATMENT PLAN Date Name Performer [id number],C,E cho conclusion 02/2023 1 . Normal left ventricular systolic function. Normal left ventricular size. Normal left ventricular wall thickness. There is E to A w ave reversal consistent with impaired LV relaxation. E/E': 3.5 Left ventricular ejection fraction is measured at 55 %. 2 . There is mild enlargement of the left atrium. Left atrial volume index is 24.8 LA volume is 63 mL. 3 . The right atrium is normal in size. Linear artifact in right atrium suggestive of catheter, pacer lead, or ICD lead. 4 . Mild mitral annular calcification. Normal appearing mitral valve leaflets. Mild mitral valve regurgitation. 5 . Normal appearing tricuspid valve leaflets. There is moderate tricuspid regurgitation. Right ventricular systolic pressure is w ithin normal limits. IVC is normal in size with normal respiratory response. Estimated peak pulmonary artery systolic p ressure is 26.0 mmHg. Yaakov Weaver [id number],C,H e says his BP has been droppping on occasion. Will decrease Losartan to 25 mg. B P today: 123/78 P rior BP: 106/81 (03/22/2023) Labs Reviewed: C reat: 1.16 (07/04/2022) C hol: 111 (07/04/2022) HDL: 31 (07/04/2022) Yaakov Weaver [id number],C,s/p CABG 2020 Yaakov Weaver [id number],C,no sxs Yaakov malik [id number],C,stable Yaakov A edzai [id number],C,n o recurrence E F 55% 2020 Farheen Breen NP [id number],C,d enies palpiations, no events on last remote check His updated medication list for this problem includes: Metoprolol Tartrate 25 Mg Tablet (Metoprolol tartrate) ..... Take 1 tablet by mouth once daily Clopidogrel 75 Mg Tablet (Clopidogrel) ..... Take one tablet by mouth once daily Aspirin 81 Mg Tablet,delayed Release (dr/ec) (Aspirin) ..... 1 tablet by mouth once a day Farheen Breen NP [id number],C,c arotids 2020 <50% will recheck carotids and AAA Farheen Breen NP [id number],C, B P today: 106/81 P rior BP: 123/86 (06/27/2022) Labs Reviewed: C reat: 1.16 (07/04/2022) C hol: 111 (07/04/2022) HDL: 31 (07/04/2022) The following medications were removed from the medication list: Metoprolol Tartrate 25 Mg Tablet (Metoprolol tartrate) ..... Take 1 tablet by mouth once daily His updated medication list for this problem includes: Toprol Xl 25 Mg Tablet Extended Release 24 Hr (Metoprolol succinate) ..... Take 1 tablet by mouth at bedtime Lasix 40 Mg Tablet (Furosemide) ..... Take 1 once a day Losartan 50 Mg Tablet (Losartan) ..... 1 tablet by mouth once a day Aspirin 81 Mg Tablet,delayed Release (dr/ec) (Aspirin) ..... 1 tablet by mouth once a day Farheen Breen NP [id number],C, chol 105, trig 102, HDL 32, LDL 54 His updated medication list for this problem includes: Atorvastatin 40 Mg Tablet (Atorvastatin) ..... 1 tablet once a day Farheen Murillobetty [employer] [id number],C,no recurrence Farheen Breen [employer] [id number],C, L VEF 50% on cath on 02/20/2021 s/p CABG 2020 will review echo from today. Farheen Murillobetty MURPHY [id number],C, H is updated medication list for this problem includes: Metoprolol Tartrate 25 Mg Tablet (Metoprolol tartrate) ..... Take 1/4 tablet by mouth two times a day Clopidogrel 75 Mg Tablet (Clopidogrel) ..... Take one tablet by mouth once daily Aspirin 81 Mg Tablet,delayed Release (dr/ec) (Aspirin) ..... 1 tablet by mouth once a day Shaq Chavez MD [id number],C,L VEF 50% on cath on 02/20/2021 jardiance decrease mortaily in cardiac patients and facilitates weight loss Shaq Chavez MD [id number],S,L VEF 50% on cath on 02/20/2021 jardiance decrease mortaily in cardiac patients and facilitates weight loss His updated medication list for this problem includes: Metoprolol Tartrate 25 Mg Tablet (Metoprolol tartrate) ..... Take 1/4 tablet by mouth two times a day Clopidogrel 75 Mg Tablet (Clopidogrel) ..... Take one tablet by mouth once daily Aspirin 81 Mg Tablet,delayed Release (dr/ec) (Aspirin) ..... 1 tablet by mouth once a day Shaq Chavez MD [id number],C, H is updated medication list for this problem includes: Metoprolol Tartrate 25 Mg Tablet (Metoprolol tartrate) ..... Take 1/4 tablet by mouth two times a day Clopidogrel 75 Mg Tablet (Clopidogrel) ..... Take one tablet by mouth once daily Aspirin 81 Mg Tablet,delayed Release (dr/ec) (Aspirin) ..... 1 tablet by mouth once a day Shaq Chavez MD [id number],C,L VEF 50% on cath on 02/20/2021 jardiance decrease mortaily in cardiac patients and facilitates weight loss O rders: P philip 5-10 (CPT-18172) Shaq Chavez MD [id number],CShaq MD [id number],CShaq MD [id number],W, r educe lasix in half c heck bloodwork O rders: C OMPREHENSIVE METABOLIC PANEL, W/EGFR (29212) C BC (H/H, RBC, INDICES, WBC, PLT) (1759) L IPID PANEL (7600) T SH, free T4, total T3 (7444) C ORTISOL, TOTAL (367) Oracio Bosch [id number],S, n o recurrence H is updated medication list for this problem includes: Metoprolol Tartrate 25 Mg Tablet (Metoprolol tartrate) ..... Take 1/4 tablet by mouth two times a day Clopidogrel 75 Mg Tablet (Clopidogrel) ..... Take one tablet by mouth once daily Aspirin 81 Mg Tablet,delayed Release (dr/ec) (Aspirin) ..... 1 tablet by mouth once a day Oracio Bosch [id number],S, H is updated medication list for this problem includes: Atorvastatin 40 Mg Tablet (Atorvastatin) ..... 1 tablet once a day Orders: C OMPREHENSIVE METABOLIC PANEL, W/EGFR (10361) C BC (H/H, RBC, INDICES, WBC, PLT) (1759) L IPID PANEL (7600) T SH, free T4, total T3 (7444) C ORTISOL, TOTAL (367) P SA, TOTAL (5363) 9 9213 LTD 20-29min (CPT-88741) Oracio Bosch [id number],S, B P today: 123/86 P rior BP: 122/80 (02/28/2022) His updated medication list for this problem includes: Metoprolol Tartrate 25 Mg Tablet (Metoprolol tartrate) ..... Take 1/4 tablet by mouth two times a day Aspirin 81 Mg Tablet,delayed Release (dr/ec) (Aspirin) ..... 1 tablet by mouth once a day Lasix 40 Mg Tablet (Furosemide) ..... Take 2 once a day Oracio Flemingamanda [id number],S, s /p PPM His updated medication list for this problem includes: Metoprolol Tartrate 25 Mg Tablet (Metoprolol tartrate) ..... Take 1/4 tablet by mouth two times a day Clopidogrel 75 Mg Tablet (Clopidogrel) ..... Take one tablet by mouth once daily Aspirin 81 Mg Tablet,delayed Release (dr/ec) (Aspirin) ..... 1 tablet by mouth once a day Oracio Flemingamanda [id number],S, H ad CABG x 3 after had cardiac cath after abnormal stress test. C oronary artery bypass graft x 3 with left internal mammary artery, right saphenous vein graft x 2 segments ( endosocpically harvested); intra-operative transesophageal echocardiogram per anesthesia C ath 01/2021 IMPRESSION: 1 . Critical stenosis involving the distal left main of 70-80%. 2 . Proximal ostial LAD of roughly 50-60%. 3 . Patent stent in the left circumflex. 4 . Jailed distal bifurcating obtuse marginal branch with 50-60% ostial lesion. 5 . 30% stenosis in a large mid vessel diagonal branch. 6 . 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 7 . Mild LV systolic dysfunction. His updated medication list for this problem includes: Metoprolol Tartrate 25 Mg Tablet (Metoprolol tartrate) ..... Take 1/4 tablet by mouth two times a day Clopidogrel 75 Mg Tablet (Clopidogrel) ..... Take one tablet by mouth once daily Aspirin 81 Mg Tablet,delayed Release (dr/ec) (Aspirin) ..... 1 tablet by mouth once a day Orders: P SA, TOTAL (5363) Oracio Flemingamanda [id number],C,E cho 04/2021 C ONCLUSIONS: 1 . Septal motion consistent with post-operative state. Normal left ventricular systolic function. Normal left ventricular wall t hickness. The left ventricle is at the upper limits of normal in size. There is E to A wave reversal consistent with impaired LV r elaxation. E/E': 8.0. Left ventricular ejection fraction is measured at 55 %. 2. There is mild enlargement of the left atrium. Left atrial volume index is 26.0. LA volume is 66 mL. 3 . Normal appearing mitral valve leaflets. Mild mitral valve regurgitation. 4 . Normal appearing tricuspid valve leaflets. There is mild tricuspid regurgitation. IVC is normal in size with normal r espiratory response. The RA pressure is estimated at 5.0 mmHg. Estimated peak pulmonary artery systolic pressure is 29.0 m mHg. [facility] [id number],C,Weight loss a dvised Yaakov kingstasha [id number],C, H ad CABG x 3 after had cardiac cath after abnormal stress test. C oronary artery bypass graft x 3 with left internal mammary artery, right saphenous vein graft x 2 segments ( endosocpically harvested); intra-operative transesophageal echocardiogram per anesthesia C ath 01/2021 IMPRESSION: 1 . Critical stenosis involving the distal left main of 70-80%. 2 . Proximal ostial LAD of roughly 50-60%. 3 . Patent stent in the left circumflex. 4 . Jailed distal bifurcating obtuse marginal branch with 50-60% ostial lesion. 5 . 30% stenosis in a large mid vessel diagonal branch. 6 . 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 7 . Mild LV systolic dysfunction. Yaakov Weaver [id number],C, B P today: 122/80 P rior BP: 124/76 (06/15/2021) Labs Reviewed: C reat: 1.08 (05/27/2021) C hol: 106 (02/04/2021) HDL: 32 (02/04/2021) [facility] [id number],C, s .p CABG - 02/24/2021 A pril 2021 A symptomatic today Yaakov Weaver [id number],C, Device functioning well - appropriate without episodes, no changes [id number], URL 130 H olter 05/25/2021 M inimum Heart Rate was 34 bpm, Average Heart Rate was 59 bpm, and Maximum Heart Rate was 108 bpm. V entricular Ectopy was 3416, with 56 V-Pairs and 0 V-Runs. S upraVentricular Ectopy was 21, with 1 SV-Runs. r eport date: 05/25/2021 // & #13;Would recommend the patient for DC pacemaker implantation at this time. Discussed the indications, alternatives and risk of complications from the procedure with the patient who expressed understanding. Orders: P acemaker Dual Chamber - [facility] (*) Nette Mcbride [employer] [id number],C,s.p CABG - 02/24/2021 Netteester Mcbride [employer] [id number],C, N o syncope since PPM inserted His updated medication list for this problem includes: Aspirin Adult Low Dose 81 Mg Oral Tablet Delayed Release (Aspirin) ..... One tab by mouth daily Clopidogrel 75mg Tablet (Clopidogrel bisulfate) ..... Take 1 tablet by mouth daily. Orders: P acemaker Dual Chamber - [facility] (*) Nette Mcbride [employer] [id number],C,H as not had any further dizziness since implantation of PPM C arotids 07/2020 CONCLUSIONS: 1 . Mild plaque with less than 50% stenosis of the internal carotid arteries bilaterally. 2 . Vertebral flow is antegrade bilaterally. Echo 04/2021 1 . Septal motion consistent with post-operative state. Normal left ventricular systolic function. Normal left ventricular wall t hickness. The left ventricle is at the upper limits of normal in size. There is E to A wave reversal consistent with impaired LV r elaxation. E/E': 8.0. Left ventricular ejection fraction is measured at 55 %. 2 . There is mild enlargement of the left atrium. Left atrial volume index is 26.0. LA volume is 66 mL. 3 . Normal appearing mitral valve leaflets. Mild mitral valve regurgitation. 4 . Normal appearing tricuspid valve leaflets. There is mild tricuspid regurgitation. IVC is normal in size with normal r espiratory response. The RA pressure is estimated at 5.0 mmHg. Estimated peak pulmonary artery systolic pressure is 29.0 m mHg. Stress 04/2021 Summary and Interpretation 1 . Normal exercise capacity\\par 2. Normal hemodynamic response to exercise\\par 3. No diagnostic ST or T changes for the heart rate achieved of 70% predicted.par 4. Ventricular couplets and PVC's\\par 5. There is no evidence for exercise-induced myocardial ischemia Nette Mcbride [employer] [id number],C, n ot symptomatic at present B B was stopped for bradycardia PREVIOUS ARRHYTHMIA MONITOR: R hythm: Sinus Rhythm with PSVT events and occasional Ventricular ectopics. M inimum Heart Rate was 48 bpm, Average Heart Rate was 69 bpm, and Maximum Heart Rate was 103 bpm. V [place]ricular Ectopy was 55767, with 176 V-Pairs and 3 V-Runs. S upraVentricular Ectopy was 5502, with 10 SV-Runs. R eport Date: 03/24/2021 His updated medication list for this problem includes: Aspirin Adult Low Dose 81 Mg Oral Tablet Delayed Release (Aspirin) ..... One tab by mouth daily Clopidogrel 75mg Tablet (Clopidogrel bisulfate) ..... Take 1 tablet by mouth daily. Sunshine Lopez [id number],W, O rders: Zurdo almaraz Dual Chamber - [facility] (*) Carotids 07/2020 CONCLUSIONS: 1 . Mild plaque with less than 50% stenosis of the internal carotid arteries bilaterally. 2 . Vertebral flow is antegrade bilaterally. Echo 04/2021 1 . Septal motion consistent with post-operative state. Normal left ventricular systolic function. Normal left ventricular wall t hickness. The left ventricle is at the upper limits of normal in size. There is E to A wave reversal consistent with impaired LV r elaxation. E/E': 8.0. Left ventricular ejection fraction is measured at 55 %. 2 . There is mild enlargement of the left atrium. Left atrial volume index is 26.0. LA volume is 66 mL. 3 . Normal appearing mitral valve leaflets. Mild mitral valve regurgitation. 4 . Normal appearing tricuspid valve leaflets. There is mild tricuspid regurgitation. IVC is normal in size with normal r espiratory response. The RA pressure is estimated at 5.0 mmHg. Estimated peak pulmonary artery systolic pressure is 29.0 m mHg. Stress 04/2021 Summary and Interpretation 1 . Normal exercise capacity\\par 2. Normal hemodynamic response to exercise\\par 3. No diagnostic ST or T changes for the heart rate achieved of 70% predicted.par 4. Ventricular couplets and PVC's\\par 5. There is no evidence for exercise-induced myocardial ischemia Sunshine Lopez [id number],N, w ent to [facility] 05/13 w ill request labs His updated medication list for this problem includes: Aspirin Adult Low Dose 81 Mg Oral Tablet Delayed Release (Aspirin) ..... One tab by mouth daily Clopidogrel 75mg Tablet (Clopidogrel bisulfate) ..... Take 1 tablet by mouth daily. Orders: Zurdo almaraz Dual Chamber - [facility] (*) Sunshine Lopez [id number],W H niyah 05/25/2021 M inimum Heart Rate was 34 bpm, Average Heart Rate was 59 bpm, and Maximum Heart Rate was 108 bpm. V entricular Ectopy was 3416, with 56 V-Pairs and 0 V-Runs. S upraVentricular Ectopy was 21, with 1 SV-Runs. r eport date: 05/25/2021 // Would recommend the patient for DC pacemaker implantation at this time. Discussed the indications, alternatives and risk of complications from the procedure with the patient who expressed understanding. Orders: Zurdo almaraz Dual Chamber - [facility] (*) Sunshine Lopez Cardiology: B P today: 107/74 P rior BP: 120/75 (10/09/2024) Labs Reviewed: C reat: 0.95 (09/10/2024) C hol: 111 (07/04/2022) HDL: 31 (07/04/2022) LDL: 56 (07/04/2022) T (07/04/2022) His updated medication list for this problem includes: Metoprolol Succinate 25 Mg Tablet Extended Release 24 Hr (Metoprolol succinate) ..... Take 1 tablet (25 mg) by mouth daily at bedtime. Losartan 50 Mg Tablet (Losartan) ..... Take 1 tablet (50 mg) by mouth daily. Lasix 40 Mg Tablet (Furosemide) ..... Take 1 once a day Aspirin 81 Mg Tablet,delayed Release (dr/ec) (Aspirin) ..... 1 tablet by mouth once a day Edil Oakes Cardiology: H is updated medication list for this problem includes: Clopidogrel 75 Mg Tablet (Clopidogrel) ..... Take one tablet by mouth once daily Metoprolol Succinate 25 Mg Tablet Extended Release 24 Hr (Metoprolol succinate) ..... Take 1 tablet (25 mg) by mouth daily at bedtime. Aspirin 81 Mg Tablet,delayed Release (dr/ec) (Aspirin) ..... 1 tablet by mouth once a day Edil Oakes Cardiology:diet enrique fication discussed. Weight loss encouraged. Edil Oakes Cardiology:sxs multi factorial from diastolic dysfunction and body habitus vs deconditioing. Reviewed importance of diet and lifestyle modification. Edil Daneserayray Cardiology: Demario brink CP or SOB. Edil Daneserayray Cardiology: N ormal LVEF from recent Echo Edil Oakes Electrophysiology:Th is visit has been a part of the consistent, comprehensive, and ongoing management of the chronic medical condition(s) listed above for the patient. 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 Take one tablet by mouth once daily Metoprolol Succinate 25 Mg Tablet Extended Release 24 Hr (Metoprolol succinate) ..... Take 1 tablet (25 mg) by mouth daily at bedtime. Aspirin 81 Mg Tablet,delayed Release (dr/ec) (Aspirin) ..... 1 tablet by mouth once a day C HOL: 111 (07/04/2022) LDL: 56 (07/04/2022) HDL: 31 (07/04/2022) T (07/04/2022) H gb: 13.4 (07/04/2022) HCT: 40.2 (07/04/2022) Platelets: 243 X10E3/UL (07/04/2022) R BC: 4.61 X10E6/UL (07/04/2022) WBC: 10.2 X10E3/UL (07/04/2022) B UN: 14 (09/10/2024) Creat: 0.95 (09/10/2024) Glucose: 159 (09/10/2024) N a+: 138 (09/10/2024) K+: 4.9 (09/10/2024) Cl: 100 (09/10/2024) PT: 10.9 (05/27/2021) INR: 1.0 (05/27/2021) T SH: 2.550 (07/04/2022) T4 (total): 6.6 (07/04/2022) Shaq Chavez MD Electrophysiology:Ec ho largely stable compared to last visit, sxs multifactorial from diastolic dysfunction and body habitus vs deconditioing. Reviewed importance of diet and lifestyle modification. His updated medication list for this problem includes: Losartan 50 Mg Tablet (Losartan) ..... Take 1/2 tablet by mouth daily. Metoprolol Succinate 25 Mg Tablet Extended Release 24 Hr (Metoprolol succinate) ..... Take 1 tablet (25 mg) by mouth daily at bedtime. Lasix 40 Mg Tablet (Furosemide) ..... Take 1 once a day Aspirin 81 Mg Tablet,delayed Release (dr/ec) (Aspirin) ..... 1 tablet by mouth once a day Shaq Chavez MD Electrophysiology:Normal LVEF fr om recent Echo Shaq Chavez MD Electrophysiology:Normal LVEF fr om recent Echo Yaakov Weaver Electrophysiology:Ec ho largely stable compared to last visit, sxs multifactorial from diastolic dysfunction and body habitus vs deconditioing. Reviewed importance of diet and lifestyle modification. Yaakov Weaver Electrophysiology:De nies CP or SOB. Yaakov Weaver Electrophysiology: H is updated medication list for this problem includes: Atorvastatin 40 Mg Tablet (Atorvastatin) ..... Take one tablet by mouth once daily Yaakov Weaver Electrophysiology: B P today: 120/75 P rior BP: 124/76 (08/26/2024) Labs Reviewed: C reat: 0.95 (09/10/2024) C hol: 111 (07/04/2022) HDL: 31 (07/04/2022) LDL: 56 (07/04/2022) T (07/04/2022) His updated medication list for this problem includes: Losartan 50 Mg Tablet (Losartan) ..... Take 1/2 tablet by mouth daily. Metoprolol Succinate 25 Mg Tablet Extended Release 24 Hr (Metoprolol succinate) ..... Take 1 tablet (25 mg) by mouth daily at bedtime. Lasix 40 Mg Tablet (Furosemide) ..... Take 1 once a day Aspirin 81 Mg Tablet,delayed Release (dr/ec) (Aspirin) ..... 1 tablet by mouth once a day [facility]: H is updated medication list for this problem includes: Clopidogrel 75 Mg Tablet (Clopidogrel) ..... Take one tablet by mouth once daily Metoprolol Succinate 25 Mg Tablet Extended Release 24 Hr (Metoprolol succinate) ..... Take 1 tablet (25 mg) by mouth daily at bedtime. Aspirin 81 Mg Tablet,delayed Release (dr/ec) (Aspirin) ..... 1 tablet by mouth once a day [facility] Electrophysiology:Th is visit has been a part of the consistent, comprehensive, and ongoing management of the chronic medical condition(s) listed above for the patient. 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 Take one tablet by mouth once daily Metoprolol Succinate 25 Mg Tablet Extended Release 24 Hr (Metoprolol succinate) ..... Take 1 tablet (25 mg) by mouth daily at bedtime. Aspirin 81 Mg Tablet,delayed Release (dr/ec) (Aspirin) ..... 1 tablet by mouth once a day [facility] Electrophysiology:ch ecking carotids carotids 2019 <50% AAA: 08/2023 plaque thru out, no evidence of aneurysm Farheen Breen [employer] Electrophysiology: B P today: 124/76 P rior BP: 123/78 (08/30/2023) Labs Reviewed: C reat: 1.16 (07/04/2022) C hol: 111 (07/04/2022) HDL: 31 (07/04/2022) LDL: 56 (07/04/2022) T (07/04/2022) His updated medication list for this problem includes: Losartan 50 Mg Tablet (Losartan) ..... Take 1/2 tablet by mouth daily. Metoprolol Succinate 25 Mg Tablet Extended Release 24 Hr (Metoprolol succinate) ..... Take 1 tablet (25 mg) by mouth daily at bedtime. Lasix 40 Mg Tablet (Furosemide) ..... Take 1 once a day Aspirin 81 Mg Tablet,delayed Release (dr/ec) (Aspirin) ..... 1 tablet by mouth once a day Farheen Ramirezmundo MURPHY Electrophysiology:pt admits to 5-6 beers per day, more on football games. pt is encouraged to cut down by half until able to get down to 2 or less per day. Farheen Breen NP Electrophysiology:se e above re: device check. checking labs, echo, carotids Farheen Fenmundo MURPHY Electrophysiology: L VEF 50% on cath on 02/20/2021 jardiance decrease mortaily in cardiac patients and facilitates weight loss. due to cost, pt is only taking jardiance every other day Farheen Breen NP Electrophysiology:wo rsening symptoms. rechecking echo. Farheen Nuha MURPHY Electrophysiology: L VEF 50% on cath on 02/20/2021 jardiance decrease mortaily in cardiac patients and facilitates weight loss, due to cost, pt is only taking jardiance every other day. recheck ECHO Farheen Fenmundo MURPHY Electrophysiology:se e above for device check. checking ECHO, carotids and labs Farheen Fenmundo MURPHY Electrophysiology:Ec ho conclusion 02/2023 1 . Normal left ventricular systolic function. Normal left ventricular size. Normal left ventricular wall thickness. There is E to A wave reversal consistent with impaired LV relaxation. E/E': 3.5 Left ventricular ejection fraction is measured at 55 %. 2. There is mild enlargement of the left atrium. Left atrial volume index is 24.8 LA volume is 63 mL. 3. The right atrium is normal in size. Linear artifact in right atrium suggestive of catheter, pacer lead, or ICD lead. 4. Mild mitral annular calcification. Normal appearing mitral valve leaflets. Mild mitral valve regurgitation. 5 . Normal appearing tricuspid valve leaflets. There is moderate tricuspid regurgitation. Right ventricular systolic pressure is within normal limits. IVC is normal in size with normal respiratory response. Estimated peak pulmonary artery systolic pressure is 26.0 mmHg. will recheck ECHO Farheen Breen NP Telehealth - Patient tells he feels better and planning to fly b: H is updated medication list for this problem includes: Metoprolol Succinate 25 Mg Tablet Extended Release 24 Hr (Metoprolol succinate) ..... Take 1 tablet (25 mg) by mouth daily at bedtime. Clopidogrel 75 Mg Tablet (Clopidogrel) ..... Take one tablet by mouth once daily Aspirin 81 Mg Tablet,delayed Release (dr/ec) (Aspirin) ..... 1 tablet by mouth once a day Shaq Chavez MD Telehealth - Patient tells he feels better and planning to fly b Shaq Chavez MD Electrophysiology:Ec ho conclusion 02/2023 1 . Normal left ventricular systolic function. Normal left ventricular size. Normal left ventricular wall thickness. There is E to A w ave reversal consistent with impaired LV relaxation. E/E': 3.5 Left ventricular ejection fraction is measured at 55 %. 2 . There is mild enlargement of the left atrium. Left atrial volume index is 24.8 LA volume is 63 mL. 3 . The right atrium is normal in size. Linear artifact in right atrium suggestive of catheter, pacer lead, or ICD lead. 4 . Mild mitral annular calcification. Normal appearing mitral valve leaflets. Mild mitral valve regurgitation. 5 . Normal appearing tricuspid valve leaflets. There is moderate tricuspid regurgitation. Right ventricular systolic pressure is w ithin normal limits. IVC is normal in size with normal respiratory response. Estimated peak pulmonary artery systolic p ressure is 26.0 mmHg. Yaakov Weaver Electrophysiology:He says his BP has been droppping on occasion. Will decrease Losartan to 25 mg. B P today: 123/78 P rior BP: 106/81 (03/22/2023) Labs Reviewed: C reat: 1.16 (07/04/2022) C hol: 111 (07/04/2022) HDL: 31 (07/04/2022) [facility]/p [facility] 2020 [facility] Electrophysiology:no sxs [facility] Electrophysiology:stable [facility] Cardiology:no recurr ence E F 55% 2020 Farheen Breen NP Cardiology:felipe knowles, no events on last remote check His updated medication list for this problem includes: Metoprolol Tartrate 25 Mg Tablet (Metoprolol tartrate) ..... Take 1 tablet by mouth once daily Clopidogrel 75 Mg Tablet (Clopidogrel) ..... Take one tablet by mouth once daily Aspirin 81 Mg Tablet,delayed Release (dr/ec) (Aspirin) ..... 1 tablet by mouth once a day Farheen Breen NP Cardiology:carotids 2020 <50% will recheck carotids and AAA Farheen Breen NP Cardiology: B P today: 106/81 P rior BP: 123/86 (06/27/2022) Labs Reviewed: C reat: 1.16 (07/04/2022) C hol: 111 (07/04/2022) HDL: 31 (07/04/2022) The following medications were removed from the medication list: Metoprolol Tartrate 25 Mg Tablet (Metoprolol tartrate) ..... Take 1 tablet by mouth once daily His updated medication list for this problem includes: Toprol Xl 25 Mg Tablet Extended Release 24 Hr (Metoprolol succinate) ..... Take 1 tablet by mouth at bedtime Lasix 40 Mg Tablet (Furosemide) ..... Take 1 once a day Losartan 50 Mg Tablet (Losartan) ..... 1 tablet by mouth once a day Aspirin 81 Mg Tablet,delayed Release (dr/ec) (Aspirin) ..... 1 tablet by mouth once a day Farheen Breen NP Cardiology:12/25/22 c hol 105, trig 102, HDL 32, LDL 54 His updated medication list for this problem includes: Atorvastatin 40 Mg Tablet (Atorvastatin) ..... 1 tablet once a day Farheen Breen NP Cardiology:no recurrence Nanci Breen NP Cardiology: L VEF 50% on cath on 02/20/2021 s/p CABG 2020 will review echo from today. Farheen Breen NP Telehealth - jardian ce decrease mortaily in cardiac patients an: H is updated medication list for this problem includes: Metoprolol Tartrate 25 Mg Tablet (Metoprolol tartrate) ..... Take 1/4 tablet by mouth two times a day Clopidogrel 75 Mg Tablet (Clopidogrel) ..... Take one tablet by mouth once daily Aspirin 81 Mg Tablet,delayed Release (dr/ec) (Aspirin) ..... 1 tablet by mouth once a day Shaq Chavez MD Telehealth - jardian ce decrease mortaily in cardiac patients an:LVEF 50% on cath on 02/20/2021 jardiance decrease mortaily in cardiac patients and facilitates weight loss Shaq Chavez MD Telehealth - jardialvarez ce decrease mortaily in cardiac patients an:LVEF 50% on cath on 02/20/2021 jardiance decrease mortaily in cardiac patients and facilitates weight loss His updated medication list for this problem includes: Metoprolol Tartrate 25 Mg Tablet (Metoprolol tartrate) ..... Take 1/4 tablet by mouth two times a day Clopidogrel 75 Mg Tablet (Clopidogrel) ..... Take one tablet by mouth once daily Aspirin 81 Mg Tablet,delayed Release (dr/ec) (Aspirin) ..... 1 tablet by mouth once a day Shaq Chavez MD Telehealth - jardian ce decrease mortaily in cardiac patients an: H is updated medication list for this problem includes: Metoprolol Tartrate 25 Mg Tablet (Metoprolol tartrate) ..... Take 1/4 tablet by mouth two times a day Clopidogrel 75 Mg Tablet (Clopidogrel) ..... Take one tablet by mouth once daily Aspirin 81 Mg Tablet,delayed Release (dr/ec) (Aspirin) ..... 1 tablet by mouth once a day Shaq Chavez MD Telehealth - jardian ce decrease mortaily in cardiac patients an:LVEF 50% on cath on 02/20/2021 jardiance decrease mortaily in cardiac patients and facilitates weight loss O rders: P philip 5-10 (CPT-43098) Shaq Chavez MD Electrophysiology Shaq nino MD Electrophysiology Shaq nino MD Electrophysiology: r educe lasix in half c heck bloodwork O rders: C OMPREHENSIVE METABOLIC PANEL, W/EGFR (39618) C BC (H/H, RBC, INDICES, WBC, PLT) (1759) L IPID PANEL (7600) T SH, free T4, total T3 (7444) C ORTISOL, TOTAL (367) Shaq Chavez MD Electrophysiology: n o recurrence H is updated medication list for this problem includes: Metoprolol Tartrate 25 Mg Tablet (Metoprolol tartrate) ..... Take 1/4 tablet by mouth two times a day Clopidogrel 75 Mg Tablet (Clopidogrel) ..... Take one tablet by mouth once daily Aspirin 81 Mg Tablet,delayed Release (dr/ec) (Aspirin) ..... 1 tablet by mouth once a day Shaq Chavez MD Electrophysiology: H is updated medication list for this problem includes: Atorvastatin 40 Mg Tablet (Atorvastatin) ..... 1 tablet once a day Orders: C OMPREHENSIVE METABOLIC PANEL, W/EGFR (22250) C BC (H/H, RBC, INDICES, WBC, PLT) (1759) L IPID PANEL (7600) T SH, free T4, total T3 (7444) C ORTISOL, TOTAL (367) P SA, TOTAL (5363) 9 9213 LTD 20-29min (CPT-87880) Shaq Chavez MD Electrophysiology: B P today: 123/86 P rior BP: 122/80 (02/28/2022) His updated medication list for this problem includes: Metoprolol Tartrate 25 Mg Tablet (Metoprolol tartrate) ..... Take 1/4 tablet by mouth two times a day Aspirin 81 Mg Tablet,delayed Release (dr/ec) (Aspirin) ..... 1 tablet by mouth once a day Lasix 40 Mg Tablet (Furosemide) ..... Take 2 once a day Oracio Danitza Electrophysiology: s /p PPM His updated medication list for this problem includes: Metoprolol Tartrate 25 Mg Tablet (Metoprolol tartrate) ..... Take 1/4 tablet by mouth two times a day Clopidogrel 75 Mg Tablet (Clopidogrel) ..... Take one tablet by mouth once daily Aspirin 81 Mg Tablet,delayed Release (dr/ec) (Aspirin) ..... 1 tablet by mouth once a day Oracio Bosch Electrophysiology: H ad CABG x 3 after had cardiac cath after abnormal stress test. C oronary artery bypass graft x 3 with left internal mammary artery, right saphenous vein graft x 2 segments (endosocpically harvested); intra-operative transesophageal echocardiogram per anesthesia C ath 01/2021 IMPRESSION: 1 . Critical stenosis involving the distal left main of 70-80%. 2 . Proximal ostial LAD of roughly 50-60%. 3 . Patent stent in the left circumflex. 4 . Jailed distal bifurcating obtuse marginal branch with 50-60% ostial lesion. 5 . 30% stenosis in a large mid vessel diagonal branch. 6 . 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 7 . Mild LV systolic dysfunction. His updated medication list for this problem includes: Metoprolol Tartrate 25 Mg Tablet (Metoprolol tartrate) ..... Take 1/4 tablet by mouth two times a day Clopidogrel 75 Mg Tablet (Clopidogrel) ..... Take one tablet by mouth once daily Aspirin 81 Mg Tablet,delayed Release (dr/ec) (Aspirin) ..... 1 tablet by mouth once a day Orders: P SA, TOTAL (5363) Shaq Chavez MD Electrophysiology:Ec 04/2021 C ONCLUSIONS: 1 . Septal motion consistent with post-operative state. Normal left ventricular systolic function. Normal left ventricular wall t hickness. The left ventricle is at the upper limits of normal in size. There is E to A wave reversal consistent with impaired LV r elaxation. E/E': 8.0. Left ventricular ejection fraction is measured at 55 %. 2. There is mild enlargement of the left atrium. Left atrial volume index is 26.0. LA volume is 66 mL. 3 . Normal appearing mitral valve leaflets. Mild mitral valve regurgitation. 4 . Normal appearing tricuspid valve leaflets. There is mild tricuspid regurgitation. IVC is normal in size with normal r espiratory response. The RA pressure is estimated at 5.0 mmHg. Estimated peak pulmonary artery systolic pressure is 29.0 m mHg. Yaakov Weaver Electrophysiology:Weight loss ad vised Yaakov Weaver Electrophysiology: H ad CABG x 3 after had cardiac cath after abnormal stress test. C oronary artery bypass graft x 3 with left internal mammary artery, right saphenous vein graft x 2 segments (endosocpically harvested); intra-operative transesophageal echocardiogram per anesthesia C ath 01/2021 IMPRESSION: 1 . Critical stenosis involving the distal left main of 70-80%. 2 . Proximal ostial LAD of roughly 50-60%. 3 . Patent stent in the left circumflex. 4 . Jailed distal bifurcating obtuse marginal branch with 50-60% ostial lesion. 5 . 30% stenosis in a large mid vessel diagonal branch. 6 . 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 7 . Mild LV systolic dysfunction. Yaakov Weaver Electrophysiology: B P today: 122/80 P rior BP: 124/76 (06/15/2021) Labs Reviewed: C reat: 1.08 (05/27/2021) C hol: 106 (02/04/2021) HDL: 32 (02/04/2021) Yaakovdaryl Weaver Electrophysiology: s .p CABG - 02/24/2021 A pril 2021 A symptomatic today Yaakovdaryl Weaver Electrophysiology Ho spital Follow up : Device functioning well - appropriate without episodes, no changes [id number], URL 130 H olter 05/25/2021 M inimum Heart Rate was 34 bpm, Average Heart Rate was 59 bpm, and Maximum Heart Rate was 108 bpm. V entricular Ectopy was 3416, with 56 V-Pairs and 0 V-Runs. S upraVentricular Ectopy was 21, with 1 SV-Runs. r eport date: 05/25/2021 // Would recommend the patient for DC pacemaker implantation at this time. Discussed the indications, alternatives and risk of complications from the procedure with the patient who expressed understanding. Orders: P acemaker Dual Chamber - [facility] (*) Nette Mcbride [employer] Electrophysiology Ho spital Follow up :s.p CABG - 02/24/2021 Nette Mcbride [employer] Electrophysiology Ho spital Follow up : N o syncope since PPM inserted His updated medication list for this problem includes: Aspirin Adult Low Dose 81 Mg Oral Tablet Delayed Release (Aspirin) ..... One tab by mouth daily Clopidogrel 75mg Tablet (Clopidogrel bisulfate) ..... Take 1 tablet by mouth daily. Orders: P acemaker Dual Chamber - [facility] (*) Nette Mcbride [employer] Electrophysiology Ho spital Follow up :Has not had any further dizziness since implantation of PPM C arotids 07/2020 CONCLUSIONS: 1 . Mild plaque with less than 50% stenosis of the internal carotid arteries bilaterally. 2 . Vertebral flow is antegrade bilaterally. Echo 04/2021 1 . Septal motion consistent with post-operative state. Normal left ventricular systolic function. Normal left ventricular wall t hickness. The left ventricle is at the upper limits of normal in size. There is E to A wave reversal consistent with impaired LV r elaxation. E/E': 8.0. Left ventricular ejection fraction is measured at 55 %. 2 . There is mild enlargement of the left atrium. Left atrial volume index is 26.0. LA volume is 66 mL. 3 . Normal appearing mitral valve leaflets. Mild mitral valve regurgitation. 4 . Normal appearing tricuspid valve leaflets. There is mild tricuspid regurgitation. IVC is normal in size with normal r espiratory response. The RA pressure is estimated at 5.0 mmHg. Estimated peak pulmonary artery systolic pressure is 29.0 m mHg. Stress 04/2021 Summary and Interpretation 1 . Normal exercise capacity\\par 2. Normal hemodynamic response to exercise\\par 3. No diagnostic ST or T changes for the heart rate achieved of 70% predicted.par 4. Ventricular couplets and PVC's\\par 5. There is no evidence for exercise-induced myocardial ischemia Nette Mcbride [employer] Electrophysiology - schedule dcpm: n ot symptomatic at present B B was stopped for bradycardia PREVIOUS ARRHYTHMIA MONITOR: R hythm: Sinus Rhythm with PSVT events and occasional Ventricular ectopics. M inimum Heart Rate was 48 bpm, Average Heart Rate was 69 bpm, and Maximum Heart Rate was 103 bpm. V entricular Ectopy was 21548, with 176 V-Pairs and 3 V-Runs. S upraVentricular Ectopy was 5502, with 10 SV-Runs. R eport Date: 03/24/2021 His updated medication list for this problem includes: Aspirin Adult Low Dose 81 Mg Oral Tablet Delayed Release (Aspirin) ..... One tab by mouth daily Clopidogrel 75mg Tablet (Clopidogrel bisulfate) ..... Take 1 tablet by mouth daily. Sunshine Lopez Electrophysiology - schedule dcpm: O rders: P rufina Dual Chamber - [facility] (*) Carotids 07/2020 CONCLUSIONS: 1 . Mild plaque with less than 50% stenosis of the internal carotid arteries bilaterally. 2 . Vertebral flow is antegrade bilaterally. Echo 04/2021 1 . Septal motion consistent with post-operative state. Normal left ventricular systolic function. Normal left ventricular wall t hickness. The left ventricle is at the upper limits of normal in size. There is E to A wave reversal consistent with impaired LV r elaxation. E/E': 8.0. Left ventricular ejection fraction is measured at 55 %. 2 . There is mild enlargement of the left atrium. Left atrial volume index is 26.0. LA volume is 66 mL. 3 . Normal appearing mitral valve leaflets. Mild mitral valve regurgitation. 4 . Normal appearing tricuspid valve leaflets. There is mild tricuspid regurgitation. IVC is normal in size with normal r espiratory response. The RA pressure is estimated at 5.0 mmHg. Estimated peak pulmonary artery systolic pressure is 29.0 m mHg. Stress 04/2021 Summary and Interpretation 1 . Normal exercise capacity\\par 2. Normal hemodynamic response to exercise\\par 3. No diagnostic ST or T changes for the heart rate achieved of 70% predicted.par 4. Ventricular couplets and PVC's\\par 5. There is no evidence for exercise-induced myocardial ischemia Sunshine Lopez Electrophysiology - schedule dcpm: w ent to [facility] 05/13 w ill request labs His updated medication list for this problem includes: Aspirin Adult Low Dose 81 Mg Oral Tablet Delayed Release (Aspirin) ..... One tab by mouth daily Clopidogrel 75mg Tablet (Clopidogrel bisulfate) ..... Take 1 tablet by mouth daily. Orders: P rufina Dual Chamber - [facility] (*) Sunshine Lopez Electrophysiology - schedule dcpm: Elizabeth linder 05/25/2021 M inimum Heart Rate was 34 bpm, Average Heart Rate was 59 bpm, and Maximum Heart Rate was 108 bpm. V entricular Ectopy was 3416, with 56 V-Pairs and 0 V-Runs. S upraVentricular Ectopy was 21, with 1 SV-Runs. r eport date: 05/25/2021 // Would recommend the patient for DC pacemaker implantation at this time. Discussed the indications, alternatives and risk of complications from the procedure with the patient who expressed understanding. Orders: P rufina Dual Chamber - [facility] (*) Sunshine Lopez Electrophysiology 12 : s tress test in 3 months to assess for possible chronotropic incompetence. Orders: M onitor - Telemetry (Mobile Cardiac) (CPT-47876) S tress Routine (CPT-21982) Rhythm: Sinus Rhythm with PSVT events and occasional Ventricular ectopics. M inimum Heart Rate was 48 bpm, Average Heart Rate was 69 bpm, and Maximum Heart Rate was 103 bpm. V entricular Ectopy was 81276, with 176 V-Pairs and 3 V-Runs. S upraVentricular Ectopy was 5502, with 10 SV-Runs. R eport Date: 03/24/2021 Sunshine Lopez Electrophysiology 12 : P rior BP: 102/70 (03/24/2021) Labs Reviewed: C reat: 0.93 (02/04/2021) C hol: 106 (02/04/2021) HDL: 32 (02/04/2021) His updated medication list for this problem includes: Lasix 40 Mg Oral Tablet (Furosemide) ..... Take 2 pills a day Metoprolol Tartrate 25 Mg Oral Tablet (Metoprolol tartrate) ..... One quarter tab. twice daily Losartan Potassium 100 Mg Oral Tablet (Losartan potassium) ..... Take one tablet daily Aspirin Adult Low Dose 81 Mg Oral Tablet Delayed Release (Aspirin) ..... One tab by mouth daily Dominicmiguel angel John Electrophysiology 12 : n ot symptomatic at present Rhythm: Sinus Rhythm with PSVT events and occasional Ventricular ectopics. M inimum Heart Rate was 48 bpm, Average Heart Rate was 69 bpm, and Maximum Heart Rate was 103 bpm. V entricular Ectopy was 91999, with 176 V-Pairs and 3 V-Runs. S upraVentricular Ectopy was 5502, with 10 SV-Runs. R eport Date: 03/24/2021 His updated medication list for this problem includes: Metoprolol Tartrate 25 Mg Oral Tablet (Metoprolol tartrate) ..... One quarter tab. twice daily Amiodarone Hcl 200 Mg Oral Tablet (Amiodarone hcl) ..... One pills a day. decreased dose. Aspirin Adult Low Dose 81 Mg Oral Tablet Delayed Release (Aspirin) ..... One tab by mouth daily Clopidogrel 75mg Tablet (Clopidogrel bisulfate) ..... Take 1 tablet by mouth daily. Sunshine Lopez Electrophysiology 12 : S tress scheduled. no fracisco ayala current meds H ad CABG x 3 after had cardiac cath after abnormal stress test. Coronary artery bypass graft x 3 with left internal mammary artery, right saphenous vein graft x 2 segments ( endosocpically harvested); intra-operative transesophageal echocardiogram per anesthesia Cath 01/2021 IMPRESSION: 1. Critical stenosis involving the distal left main of 70-80%. 2 . Proximal ostial LAD of roughly 50-60%. 3 . Patent stent in the left circumflex. 4 . Jailed distal bifurcating obtuse marginal branch with 50-60% ostial lesion. 5 . 30% stenosis in a large mid vessel diagonal branch. 6 . 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 7 . Mild LV systolic dysfunction. His updated medication list for this problem includes: Metoprolol Tartrate 25 Mg Oral Tablet (Metoprolol tartrate) ..... One quarter tab. twice daily Aspirin Adult Low Dose 81 Mg Oral Tablet Delayed Release (Aspirin) ..... One tab by mouth daily Clopidogrel 75mg Tablet (Clopidogrel bisulfate) ..... Take 1 tablet by mouth daily. Abamannie John Electrophysiology Fo llow up : a miodarone was decreased to 200 once daily T he following medications were removed from the medication list: Isosorbide Mononitrate Er 30 Mg Oral Tablet Extended Release 24 Hour (Isosorbide mononitrate) ..... One tab. daily Nitrostat 0.4 Mg Sublingual Tablet Sublingual (Nitroglycerin) ..... Apply one tab under tongue every 5 minutes for 3 total doses as needed for chest pain. if no relief after 3rd dose, go to er His updated medication list for this problem includes: Metoprolol Tartrate 25 Mg Oral Tablet (Metoprolol tartrate) ..... One tab. twice daily Amiodarone Hcl 200 Mg Oral Tablet (Amiodarone hcl) ..... One pills a day. decreased dose. Clopidogrel 75mg Tablet (Clopidogrel bisulfate) ..... Take 1 tablet by mouth daily. Aspirin Adult Low Dose 81 Mg Oral Tablet Delayed Release (Aspirin) ..... One tab by mouth daily Dominicmiguel angel John Electrophysiology Fo llow up : B P today: 102/70 P rior BP: 140/80 (02/08/2021) Labs Reviewed: C reat: 0.93 (02/04/2021) C hol: 106 (02/04/2021) HDL: 32 (02/04/2021) His updated medication list for this problem includes: Metoprolol Tartrate 25 Mg Oral Tablet (Metoprolol tartrate) ..... One tab. twice daily Lasix 40 Mg Oral Tablet (Furosemide) ..... Take 2 pills a day Losartan Potassium 50 Mg Oral Tablet (Losartan potassium) ..... Take one tablet daily. restart. decreased dose from prior. Aspirin Adult Low Dose 81 Mg Oral Tablet Delayed Release (Aspirin) ..... One tab by mouth daily Dominicmiguel angel John Electrophysiology Fo llow up : s tress test in 3 months to assess for possible chronotropic incompetence. Orders: M onitor - Telemetry (Mobile Cardiac) (CPT-15434) S tress Routine (CPT-75214) Sunshine Lopez Electrophysiology Fo llow up : joan sellers current meds H ad CABG x 3 after had cardiac cath after abnormal stress test. Coronary artery bypass graft x 3 with left internal mammary artery, right saphenous vein graft x 2 segments ( endosocpically harvested); intra-operative transesophageal echocardiogram per anesthesia Cath 01/2021 IMPRESSION: 1 . Critical stenosis involving the distal left main of 70-80%. 2 . Proximal ostial LAD of roughly 50-60%. 3 . Patent stent in the left circumflex. 4 . Jailed distal bifurcating obtuse marginal branch with 50-60% ostial lesion. 5 . 30% stenosis in a large mid vessel diagonal branch. 6 . 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 7 . Mild LV systolic dysfunction. The following medications were removed from the medication list: Isosorbide Mononitrate Er 30 Mg Oral Tablet Extended Release 24 Hour (Isosorbide mononitrate) ..... One tab. daily Nitrostat 0.4 Mg Sublingual Tablet Sublingual (Nitroglycerin) ..... Apply one tab under tongue every 5 minutes for 3 total doses as needed for chest pain. if no relief after 3rd dose, go to er His updated medication list for this problem includes: Metoprolol Tartrate 25 Mg Oral Tablet (Metoprolol tartrate) ..... One tab. twice daily Clopidogrel 75mg Tablet (Clopidogrel bisulfate) ..... Take 1 tablet by mouth daily. Aspirin Adult Low Dose 81 Mg Oral Tablet Delayed Release (Aspirin) ..... One tab by mouth daily Sunshine Lopez Electrophysiology:CO NCLUSIONS: 1 . Normal sinus rhythm. Nonspecific ST-T abnormality. ERICH ELIAS R Study Dt:02/08/2021 Page [address] or T changes with Ambrocio protocol exercise tolerance test which were borderline or equivocal for i schemia.frequent PVCs during the exercise. 3 . Abnormal perfusion imaging with evidence of inferior, inferolateral and apical ischemia. 4 . Normal LV systolic function with EF 53%. Cardiac cath scheduled for 02/20/2021 Sunshine Lopez Electrophysiology David Morin Electrophysiology:Fr equent PVCs visualized on EKG portion of stress test today David Morin Electrophysiology:Broderick d stress test revealing frequent ectopics, decreased exercise capacity. Will obtain nuclear portion and then form a plan of care. Cath 08/2017: 1 . Moderate three-vessel coronary artery disease as described. I believe the circumflex stent has significantly restenosed and it does correspond to the area of ischemia on stress testing and therefore this would probably have to be re-stented. The disease in the LAD and right coronary artery are borderline in severity and probably need further interrogation via FFR or potentially IVUS at least of the ostial LAD stenosis may be considered. 2 . Normal left ventricular systolic function LVEF is 60%. David Morin Electrophysiology David Morin Electrophysiology:LD L 50 H is updated medication list for this problem includes: Atorvastatin Calcium 40 Mg Oral Tablet (Atorvastatin calcium) ..... One tablet daily David Morin Electrophysiology:Oc cured in 1999 in [place], [place] Daivd Morin Electrophysiology: B P today: 140/80 P rior BP: 122/82 (02/03/2021) Labs Reviewed: C reat: 0.93 (02/04/2021) C hol: 106 (02/04/2021) HDL: 32 (02/04/2021) David Morin Electrophysiology Fo llow up 14: H is updated medication list for this problem includes: Isosorbide Mononitrate Er 30 Mg Oral Tablet Extended Release 24 Hour (Isosorbide mononitrate) ..... One tab. daily Clopidogrel 75mg Tablet (Clopidogrel bisulfate) ..... Take 1 tablet by mouth daily. Nitrostat 0.4 Mg Sublingual Tablet Sublingual (Nitroglycerin) ..... Apply one tab under tongue every 5 minutes for 3 total doses as needed for chest pain. if no relief after 3rd dose, go to er Aspirin Adult Low Dose 81 Mg Oral Tablet Delayed Release (Aspirin) ..... One tab by mouth daily Orders: Ester VELAZQUEZ (CPT-04209) Sunshine Lopez Electrophysiology Fo llow up 14: B P today: 122/82 P rior BP: 146/79 (07/08/2020) Labs Reviewed: C reat: 0.99 (07/09/2020) C hol: 133 (07/09/2020) HDL: 37 (07/09/2020) His updated medication list for this problem includes: Losartan Potassium 100mg Tablet (Losartan potassium) ..... Take 1 tablet by mouth daily. Aspirin Adult Low Dose 81 Mg Oral Tablet Delayed Release (Aspirin) ..... One tab by mouth daily Sunshine Lopez Electrophysiology Fo llow up 14: O rders: P ROBNP, N TERMINAL ([id number]) Echo 06/2020 CONCLUSIONS: 1 . Normal left ventricular systolic function. Normal left ventricular size. Normal left ventricular wall thickness. E/E': 9.0. Left v entricular ejection fraction is measured at 60 %. 2 . There is mild enlargement of the left atrium. 3 . Mild mitral annular calcification. There is non-specific thickening of the mitral valve leaflets. There is trace physiologic m itral valve regurgitation. 4 . There is non-specific thickening of the tricuspid valve. There is mild tricuspid regurgitation. IVC is normal in size with n ormal respiratory response. Estimated peak pulmonary artery systolic pressure is 36.0 mmHg. PFT 07/2020 Order Note: PFConsult : Although the FEV1 and FVC are reduced, the FEV1/FVC ratio is increased. The MVV is reduced. The FVC is reduced relative to the SVC indicating air trapping. While the TLC and RV are with normal limits, the FRC is reduced. Following administration of bronchodilators, there is a significant response indicated by the increased FVC. The reduced diffusing capacity indicates a minimal loss of functional alveolar capillary surface. Order Note: Order Note: Conclusions: The diffusion defect, increased FEV1/FVC ratio and reduced FVC suggest an early interstitial process. Order Note: Order Note: Pulmonary Function Diagnosis: Order Note: Mild Restriction -Interstitial Order Note: Minimal Diffusion Defect Sunshine Lopez Electrophysiology Fo llow up 14: a dd isosorbide mononitrate 30 O rders: S olivagalo Regadenoson (CPT-37372) His updated medication list for this problem includes: Isosorbide Mononitrate Er 30 Mg Oral Tablet Extended Release 24 Hour (Isosorbide mononitrate) ..... One tab. daily Clopidogrel 75mg Tablet (Clopidogrel bisulfate) ..... Take 1 tablet by mouth daily. Nitrostat 0.4 Mg Sublingual Tablet Sublingual (Nitroglycerin) ..... Apply one tab under tongue every 5 minutes for 3 total doses as needed for chest pain. if no relief after 3rd dose, go to er Aspirin Adult Low Dose 81 Mg Oral Tablet Delayed Release (Aspirin) ..... One tab by mouth daily Sunshine Lopez Electrophysiology Fo llow up 14: s ome chest tightness lately O rders: S yeny Sullivan (CPT-76820) Cath 08/2017: 1 . Moderate three-vessel coronary artery disease as described. I believe the circumflex stent has significantly restenosed and it does correspond to the area of ischemia on stress testing and therefore this would probably have to be re-stented. The disease in the LAD and right coronary artery are borderline in severity and probably need further interrogation via FFR or potentially IVUS at least of the ostial LAD stenosis may be considered. 2 . Normal left ventricular systolic function LVEF is 60%. His updated medication list for this problem includes: Clopidogrel 75mg Tablet (Clopidogrel bisulfate) ..... Take 1 tablet by mouth daily. Nitrostat 0.4 Mg Sublingual Tablet Sublingual (Nitroglycerin) ..... Apply one tab under tongue every 5 minutes for 3 total doses as needed for chest pain. if no relief after 3rd dose, go to er Aspirin Adult Low Dose 81 Mg Oral Tablet Delayed Release (Aspirin) ..... One tab by mouth daily Sunshine Lopez Electrophysiology - 1y f/u with PFT, testing : S ome wheezing today H is updated medication list for this problem includes: Losartan Potassium 100 Mg Tab (Losartan potassium) ..... Take one tablet by mouth once daily Aspirin Adult Low Dose 81 Mg Oral Tablet Delayed Release (Aspirin) ..... One tab by mouth daily Orders: F VC - 93326 (76581) F RC - 28484 (70638) D O - 01392 (56036) Sunshine Lopez Electrophysiology - 1y f/u with PFT, testing : H is updated medication list for this problem includes: Losartan Potassium 100 Mg Tab (Losartan potassium) ..... Take one tablet by mouth once daily Aspirin Adult Low Dose 81 Mg Oral Tablet Delayed Release (Aspirin) ..... One tab by mouth daily BP today: 146/79 P rior BP: 140/68 (06/12/2019) Labs Reviewed: C reat: 0.91 (06/05/2018) C hol: 146 (06/05/2018) HDL: 35 (06/05/2018) LDL: 89 MG/DL (CALC) (06/05/2018) T (06/05/2018) Orders: 9 9215 HIGH Complex (CPT-74388) C BC (H/H, RBC, INDICES, WBC, PLT) (1759) C OMPREHENSIVE METABOLIC PANEL, W/EGFR (98084) P SA, TOTAL (5363) Abamannie Lopez Electrophysiology - 1y f/u with PFT, testing : H is updated medication list for this problem includes: Clopidogrel 75mg Tablet (Clopidogrel bisulfate) ..... Take 1 tablet by mouth daily. Nitrostat 0.4 Mg Sublingual Tablet Sublingual (Nitroglycerin) ..... Apply one tab under tongue every 5 minutes for 3 total doses as needed for chest pain. if no relief after 3rd dose, go to er Aspirin Adult Low Dose 81 Mg Oral Tablet Delayed Release (Aspirin) ..... One tab by mouth daily O rders: C BC (H/H, RBC, INDICES, WBC, PLT) (1759) C OMPREHENSIVE METABOLIC PANEL, W/EGFR (98927) P SA, TOTAL (5363) Abamannie John Electrophysiology - 1y f/u with PFT, testing : O rders: L IPID PANEL (5044) His updated medication list for this problem includes: Atorvastatin Calcium 40 Mg Oral Tablet (Atorvastatin calcium) ..... One tablet daily Abamannie John Electrophysiology fo llow up :30 day Telesentry Report 12/11/2017 Rhythm: Sinus Rhythm with rare Ventricular ectopics and rare Supraventricular ectopics. T he average heart rate was 79BPM with a maximum heart rate of 86BPM. T he minimum heart rate was 72BPM. V entricular ectopy was documented in the form of a pair and isolated beats. A trial ectopy was documented in the form of isolated beats. R eport Date: 12/11/2017. //TLH O rders: 9 9215 HIGH Complex (CPT-45141) Byron Anthony Electrophysiology fo llow up :Echo 06/08/2019 Conclusions: 1 . Normal left ventricular systolic function. Normal left ventricular size. Normal left ventricular wall t hickness. Mitral inflow Doppler demonstrates pseudonormal pattern consistent with diastolic d ysfunction. Normal E/E` 10.8. Left ventricular ejection fraction is estimated at 55 %. 2 . There is mild enlargement of the left atrium. 3 . There is mild enlargement of right atrium. 4 . Normal appearing tricuspid valve leaflets. There is mild tricuspid regurgitation. IVC is normal in size w ith normal respiratory response. The RA pressure is estimated at 10.0 mmHg. Estimated peak p ulmonary artery systolic pressure is 42. H ERICH GALARZA Study Dt:06/08/2019 Page 3 of 3 5 . Mild mitral annular calcification. There is non-specific thickening of the mitral valve leaflets. Mild m itral valve regurgitation. His updated medication list for this problem includes: Plavix 75 Mg Oral Tablet (Clopidogrel bisulfate) ..... One tab once . daily Nitrostat 0.4 Mg Sublingual Tablet Sublingual (Nitroglycerin) ..... Apply one tab under tongue every 5 minutes for 3 total doses as needed for chest pain. if no relief after 3rd dose, go to er Aspirin Adult Low Dose 81 Mg Oral Tablet Delayed Release (Aspirin) ..... One tab by mouth daily Orders: 9 9215 HIGH Complex (CPT-49845) [facility] Electrophysiology fo llow up : H is updated medication list for this problem includes: Plavix 75 Mg Oral Tablet (Clopidogrel bisulfate) ..... One tab once . daily Nitrostat 0.4 Mg Sublingual Tablet Sublingual (Nitroglycerin) ..... Apply one tab under tongue every 5 minutes for 3 total doses as needed for chest pain. if no relief after 3rd dose, go to er Aspirin Adult Low Dose 81 Mg Oral Tablet Delayed Release (Aspirin) ..... One tab by mouth daily Orders: E KG (CPT-93735) 9 9215 HIGH Complex (CPT-61385) [facility] Electrophysiology fo llow up : B P today: 140/68 P rior BP: 122/70 (06/13/2018) Labs Reviewed: C reat: 0.91 (06/05/2018) C hol: 146 (06/05/2018) HDL: 35 (06/05/2018) LDL: 89 MG/DL (CALC) (06/05/2018) T (06/05/2018) His updated medication list for this problem includes: Losartan Potassium 100 Mg Oral Tablet (Losartan potassium) ..... Take one tablet daily Aspirin Adult Low Dose 81 Mg Oral Tablet Delayed Release (Aspirin) ..... One tab by mouth daily Orders: 9 9215 HIGH Complex (CPT-50264) Byron Cruz Electrophysiology fo llow up :CHOL: 146 (06/05/2018) LDL: 89 MG/DL (CALC) (06/05/2018) HDL: 35 (06/05/2018) T (06/05/2018) His updated medication list for this problem includes: Zocor 40 Mg Oral Tablet (Simvastatin) ..... One tab. at bedtime Orders: 9 9215 HIGH Complex (CPT-50985) Byron Cruz Electrophysiology fo llow up : O rders: 9 9215 HIGH Complex (CPT-33897) His updated medication list for this problem includes: Losartan Potassium 100 Mg Oral Tablet (Losartan potassium) ..... Take one tablet daily Aspirin Adult Low Dose 81 Mg Oral Tablet Delayed Release (Aspirin) ..... One tab by mouth daily Byron Cruz Electrophysiology fo llow up : H is updated medication list for this problem includes: Plavix 75 Mg Oral Tablet (Clopidogrel bisulfate) ..... One tab once . daily Nitrostat 0.4 Mg Sublingual Tablet Sublingual (Nitroglycerin) ..... Apply one tab under tongue every 5 minutes for 3 total doses as needed for chest pain. if no relief after 3rd dose, go to er Aspirin Adult Low Dose 81 Mg Oral Tablet Delayed Release (Aspirin) ..... One tab by mouth daily Orders: 9 9215 HIGH Complex (CPT-85423) Byron Cruz Electrophysiology Fo llow up:CHOL: 146 (06/05/2018) LDL: 89 MG/DL (CALC) (06/05/2018) HDL: 35 (06/05/2018) T (06/05/2018) His updated medication list for this problem includes: Zocor 40 Mg Oral Tablet (Simvastatin) ..... One tab. at bedtime Akil Jamaalinocencio Electrophysiology Fo llow up: B P today: 122/70 P rior BP: 102/70 (12/11/2017) Labs Reviewed: C reat: 0.91 (06/05/2018) C hol: 146 (06/05/2018) HDL: 35 (06/05/2018) LDL: 89 MG/DL (CALC) (06/05/2018) T (06/05/2018) His updated medication list for this problem includes: Losartan Potassium 100 Mg Oral Tablet (Losartan potassium) ..... Take one tablet daily Aspirin Adult Low Dose 81 Mg Oral Tablet Delayed Release (Aspirin) ..... One tab by mouth daily Akil Jamaalinocencio Electrophysiology Follow up Aditya ge [facility] Electrophysiology Fo llow up: H is updated medication list for this problem includes: Plavix 75 Mg Oral Tablet (Clopidogrel bisulfate) ..... One tab once . daily Nitrostat 0.4 Mg Sublingual Tablet Sublingual (Nitroglycerin) ..... Apply one tab under tongue every 5 minutes for 3 total doses as needed for chest pain. if no relief after 3rd dose, go to er Aspirin Adult Low Dose 81 Mg Oral Tablet Delayed Release (Aspirin) ..... One tab by mouth daily [facility] Electrophysiology:Check CT chest . Madiha Perales NP Electrophysiology: O rders: C T Chest without contrast (CPT-69287) F VC - 66542 (47547) F RC - 57613 (60142) D LCO - 33224 (50731) S chedule Followup (*) Madiha Perales NP Electrophysiology:Broderick s not needed to use sublingual nitro. Not currently taking Imdur. O rders: ECP - Medicare (CPT-G0166) C OMPREHENSIVE METABOLIC PANEL, W/EGFR (81594) L IPID PANEL (8342) 9 5541 MOD Complex (CPT-94088) C T Chest without contrast (CPT-07587) S chedule Followup (*) Madiha Angella [employer] Electrophysiology: S /P stenting of the circumflex. Madiha Angella MURPHY Electrophysiology:No beta sherrell. Orders: S NOMED-CT: [id number] Current Medications Documented ([facility]-[id number]) E KG (CPT-83354) M obile Cardiac Tele (CPT-28986) Shaq Chavez MD Electrophysiology:Th is patient has angina (defined as chest pain, chest discomfort, or pain in arms, neck, jaw, shoulder, or back, and may include symptoms of shortness of breath, fatigue, dizziness, nausea, or diaphoresis) of [place] [employer] Class III (defined as symptoms with everyday living activities, i.e. moderate limitation) or [place] [employer] Class IV (defined as inability to perform any activity without angina or angina at rest, i.e. severe limitation). T his patient?s angina is disabling and in my opinion is not readily amenable to surgical intervention by PTCA or cardiac bypass because the patient's coronary anatomy is not readily amenable to such procedures. Shaq Chavez MD Electrophysiology:S/ P stenting of the circumflex. In the [place] study. Shaq Chavez MD Electrophysiology: B P today: 110/70 P rior BP: 120/82 (08/02/2017) Shaq Chavez MD Electrophysiology:St ress test results showed possible ischemia. Discussed cardiac cath with patient. He is agreeable with this plan. The risks and benefits of the procedure, including but not limited the risk of heart attack, , stroke, bleeding, kidney failure, and loss of limb as well as the alternative of continued medical therapy, stress testing or bypass surgery were discussed with the patient and any present family members and the patient wishes to proceed with cardiac cath and stenting. The patient and family had opportunity to discuss this with us. Written material including informed consent was given out. His updated medication list for this problem includes: Aspirin Adult Low Dose 81 Mg Oral Tbec (Aspirin) ..... One tab by mouth daily Lisinopril-hydrochlorothiazide 10-12.5 Mg Tabs (Lisinopril-hydrochlorothiazide) ..... One tab. daily Plavix 75 Mg Tabs (Clopidogrel bisulfate) ..... One tab. daily Shaq Chavez MD Electrophysiology: H is updated medication list for this problem includes: Aspirin Adult Low Dose 81 Mg Oral Tbec (Aspirin) ..... One tab by mouth daily Lisinopril-hydrochlorothiazide 10-12.5 Mg Tabs (Lisinopril-hydrochlorothiazide) ..... One tab. daily Plavix 75 Mg Tabs (Clopidogrel bisulfate) ..... One tab. daily Orders: S TR - Adenosine (CPT-80666) Shaq Chavez MD Electrophysiology:Unchanged EKG Shaq Chavez MD Electrophysiology: B P today: 120/82 P rior BP: 146/60 (08/31/2016) His updated medication list for this problem includes: Aspirin Adult Low Dose 81 Mg Oral Tbec (Aspirin) ..... One tab by mouth daily Lisinopril-hydrochlorothiazide 10-12.5 Mg Tabs (Lisinopril-hydrochlorothiazide) ..... One tab. daily Shaq Chavez MD Electrophysiology: O rders: 9 9214 MOD Complex (CPT-31312) Shaq Chavez MD Cardiology faxed 10/10:Will evaluate with a telesentry. Shaq Chavez MD Cardiology faxed 10/10:His updated medication list for this problem includes: Zocor 40 Mg Tabs (Simvastatin) ..... One tab. at bedtime Shaq Chavez MD Cardiology faxed 10/10:BP today: 146/60 His updated medication list for this problem includes: Aspirin Adult Low Dose 81 Mg Oral Tbec (Aspirin) ..... One tab by mouth daily Lisinopril-hydrochlorothiazide 10-12.5 Mg Tabs (Lisinopril-hydrochlorothiazide) ..... One tab. daily Shaq Chavez MD Cardiology faxed 10/10:Had an OH and stent in 1999 in [facility]. Denies any chest pain since then. Continue on dual antiplatelet therapy. Not planning to do an stress test unless his echo is abnormal. Shaq Chavez MD Cardiology faxed 10/10:Had OH and a stent in 1999 in [place]. Shaq Chavez MD Date Name TESTOSTERONE, TOTAL HEMOGLOBIN A1c COMPREHENSIVE METABO LIC PANEL, W/EGFR Cortisol TSH, free T4, total T3 Carotid Duplex Bilat eral Complete Echo MAGNESIUM COMPREHENSIVE METABO LIC PANEL, W/EGFR Lipoprotein (a) HEMOGLOBIN A1c Complete Echo Aorta Duplex Ultraso und Carotid Duplex Bilat eral Complete Echo MAGNESIUM PSA, TOTAL CORTISOL, TOTAL TSH, free T4, total T3 LIPID PANEL CBC (H/H, RBC, INDIC ES, WBC, PLT) COMPREHENSIVE METABO LIC PANEL, W/EGFR Complete Echo CXR- PA/Lat Partial Thromboplast in Time, Activated PROTHROMBIN TIME WIT H INR CBC (H/H, RBC, INDIC ES, WBC, PLT) TSH, free T4, total T3 COMPREHENSIVE METABO LIC PANEL, W/EGFR Pacemaker Dual Chamb er - [facility] HEMOGLOBIN A1c LIPID PANEL CBC (H/H, RBC, INDIC ES, WBC, PLT) COMPREHENSIVE METABO LIC PANEL, W/EGFR Cortisol CBC (INCLUDES DIFF/P LT) LIPID PANEL Complete Echo Stress Routine Monitor - Telemetry (Mobile Cardiac) Monitor - Telemetry (Mobile Cardiac) PROTHROMBIN TIME WIT H INR Partial Thromboplast in Time, Activated CBC (H/H, RBC, INDIC ES, WBC, PLT) TSH, free T4, total T3 PROBNP, N TERMINAL LIPID PANEL COMPREHENSIVE METABO LIC PANEL, W/EGFR Stress Regadenoson Aorta Duplex Ultraso und Carotid Duplex Bilat eral DLCO - 04579 FRC - 25796 FVC - 37288 LIPID PANEL PSA, TOTAL COMPREHENSIVE METABO LIC PANEL, W/EGFR CBC (H/H, RBC, INDIC ES, WBC, PLT) Complete Echo Complete Echo PSA, TOTAL DLCO - 18630 FRC - 04653 FVC - 54362 CT Chest without con trast LIPID PANEL COMPREHENSIVE METABO LIC PANEL, W/EGFR ECP - Medicare ECP - Medicare Mobile Cardiac Tele Complete Echo LIPID PANEL CBC (INCLUDES DIFF/P LT) COMPREHENSIVE METABO LIC PANEL, W/EGFR Complete Echo Cardiac Cath - Left - [facility] Holter Monitor 24 Hr STR - Adenosine Mobile Cardiac Tele Aortic Abdominal Ult rasound Carotid Duplex Bilat eral Complete Echo HISTORY OF PROCEDURES Procedure Date Procedure Name Provider Procedure Notes S tatus EKG Shaq young MD completed Complex e/m visit add on Shaq Chavez MD completed EKG Shaq young MD completed Schedule Followup Shaq nino MD [address] Chavez completed EKG Shaq young MD completed EKG Shaq young MD completed Schedule Followup Shaq nino MD in 6 months completed EKG Shaq young MD completed EKG Shaq young MD completed Event Monitor Shaq young MD completed EKG Shaq young MD completed EKG Shaq young MD completed EKG Shaq young MD completed FVC / MVV with bronchodilator - 39430 Shaq Chavez MD completed BLOOD COUNT HEMOGLOBIN Shaq martin MD completed FRC - 51573 Shaq young MD completed SpO2 w/o 6min walk/titration Shaq Chavez MD completed DLCO - 28896 Shaq young MD completed Schedule Followup Shaq nino MD 1 year fu schedule with Evangelina Andrews completed EKG Shaq young MD completed EKG Shaq young MD completed Schedule Followup Shaq nino MD in 1 year completed FVC / MVV with bronchodilator - 53891 Shaq Chavez MD completed FRC - 14288 Shaq young MD completed SpO2 - 95397 Shqa young MD completed DLCO - 60570 Shaq young MD completed Schedule Followup Shaq nino MD in 6 months completed EKG Shaq young MD completed SNOMED-CT: [id number] Current Medications Documented Shaq Chavez MD completed Mobile Cardiac Telem etry - Tech Shaq Chavez MD completed Mobile Cardiac Telem etry - Prof Shaq Chavez MD completed EKG Shaq young MD completed SNOMED-CT: [id number] Current Medications Documented Shaq Chavez MD completed Schedule Followup Shaq nino MD FU in 3 months with and ECHO completed EKG Shaq young MD completed SNOMED-CT: [id number] Current Medications Documented Shaq Chavez MD completed Stress EKG Mark Coats MD completed Regadenoson, 4 units ulius Jose Roberto land MD completed Cardiolite, 2 units Saulius Kobi shaw MD completed SPECT Images Angel Calvert MD completed EKG Shaq young MD completed SNOMED-CT: [id number] Current Medications Documented Shaq Chavez MD completed Event Monitor Shaq young MD completed EKG Shaq young MD completed SNOMED-CT: [id number] Current Medications Documented Shaq Chavez MD completed
--- OUTSIDE RECORDS SUMMARY | 2025-04-30 06:51 | XMS_ITS | Referral Summary ---
Author Organization [facility] [address] [place] [id number] Care Team Providers Care Chisel Grinder Name Role Phone Lisa Gonzalez MD Primary Care Provider Lisa Gonzalez MD Unavailable [phone] Allergies Active Allergy Reactions Criticality Noted Date Comments Penicillins Unknown Allergy as a child. Allergy history form completed. Minor risk. Medications gabapentin (NEURONTIN) 300 mg capsule Take 2 capsules (600 mg total) by mouth nightly Active citalopram (CeleXA) 20 mg tablet Take 1 tablet (20 mg total) by mouth nightly Active fluticasone propionate (FLONASE) 50 mcg/actuation nasal spray Administer 2 sprays into each nostril daily as needed Active atorvastatin (LIPITOR) 40 mg tablet Take 1 tablet (40 mg total) by mouth nightly Active clopidogreL (PLAVIX) 75 mg tablet Take 1 tablet (75 mg total) by mouth nightly Active azelastine (ASTELIN) 137 mcg (0.1 %) nasal spray Administer 1 spray into each nostril daily as needed 1 Active cholecalciferol (VITAMIN D-3) 08308 unit capsule Take 2 capsules (20,000 Units total) by mouth nightly Active acetaminophen ER (Tylenol 8 Hour) 650 mg 8 hr tabletIndicatio ns:Pain Take 2 tablets (1,300 mg total) by mouth every 8 (eight) hours as needed for pain otc doctor aware Active metoprolol XL (TOPROL-XL) 25 mg extended release tablet Take 0.5 tablets (12.5 mg total) by mouth daily Active aspirin 81 mg enteric coated tablet Take by mouth daily Active Jardiance 10 mg tablet Take 1 tablet (10 mg total) by mouth every other day 3 Active losartan (COZAAR) 50 mg tablet Take 0.5 tablets (25 mg total) by mouth daily Active docusate sodium (COLACE) 100 mg capsuleIndicati ons:constipatio n Take 1 capsule (100 mg total) by mouth 2 (two) times a day For constipation. Hold if having loose stools or diarrhea. 30 capsule 1 4 Active HYDROcodone-anika taminophen (NORCO) 5-325 mg per tabletIndicatio ns:Pain Take 1-2 tablets every 4 hours as needed for pain 32 tablet 4 Active Active Problems Problem Noted Date Diagnosed Date Closed fracture of left elbow 04/02/2024 Coronary artery disease invo lving [place] coronary artery of [place] heart without angina pectoris 02/21/2021 Overview (02/21/2021): Added automatically from request for surgery [id number] Social History Tobacco Use Types Packs/Day Years Used Date Smoking Tobacco: Former Cigarettes Q uit: 02/23/1980 Smokeless Tobacco: Never Tobacco Cessation:Counseling Given: Not Answered Alcohol Use Standard Drinks/Week Comments Yes 0 (1 standard drink = 0.6 oz pur e alcohol) AUDIT-C Answer Date Recorded Q1: How often do you have a drink containing alcohol? 4 or more times a week 04/14/2024 Q2: How many drinks containi ng alcohol do you have on a typical day when you are drinking? 1 or 2 4 Q3: How often do you have si x or more drinks on one occasion? Never 04/14/2024 Personal Safety Answer Date Recorded Have you ever been in or are you currently in a harmful physical or emotional relationship or is someone making you feel afraid or unsafe? 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 Gender Identity Not on file Sexual Orientation Not on file Last Filed Vital Signs Vital Sign Reading Time Taken Comments Blood Pressure 155/78 04/18/2024 10:45 AM CDT Pulse 66 04/18/2024 10:45 AM CDT Temperature 38 C (100.4 F) 04/18/2024 10:45 AM CDT Respiratory Rate 14 04/18/2024 10:45 AM CDT Oxygen Saturation 94% 04/18/2024 8:38 AM CDT Inhaled Oxygen Concentration - - Weight 124.7 kg (275 lb) 04/18/2024 8:38 AM CDT Height 185.4 cm (6' 0.99) 06/01/2024 8:58 AM CD T Body Mass Index 36.28 04/18/2024 8:38 AM CDT Plan of Treatment Not on file Medical Devices Implanted Type Area Pilot Boat Operator Device Identifier Shelf Expiration Date Model / Serial / Lot Synthes 3.5mm 6mm 22mm 2.5mm Self Tap Small Hexagonal Socket Low Profile 204.822 - [id number] Implanted:Qty: 2 on 04/14/2024 by Wilton Domingo MD at [facility] Left: Elbow Synthes I 204.822 / / Synthes 2.7mm 60mm Self Tap Stardrive Elbow Metaphyseal T8 Screw Bone 02.118.560 - [id number] Implanted:Qty: 2 on 04/14/2024 by Wilton Domingo MD at [facility] Left: Elbow Synthes I 02.118.560 / / Synthes 2.7mm 34mm Self Tap Stardrive Elbow Metaphyseal T8 Screw Bone 02.118.534 - [id number] Implanted:Qty: 1 on 04/14/2024 by Wilton Domingo MD at [facility] Left: Elbow Synthes I 02.118.534 / / Synthes 2.7mm 42mm Self Tap Stardrive Elbow Metaphyseal T8 Screw Bone 02.118.542 - [id number] Implanted:Qty: 1 on 04/14/2024 by Wilton Domingo MD at [facility] Left: Elbow Synthes I 02.118.542 / / Synthes Lcp Combi 90mm 2 Hole Variable Angle Taper Tip Round Profile 02.107.302s - [id number] Implanted:Qty: 1 on 04/14/2024 by Wilton Domingo MD at [facility] Left: Elbow Synthes I 12/25/2033 02.107.302S / / [id number] Insurance [employer] CHOICE MEDICARE PPO HU[employer] CHOICE MEDICARE PPO HU[employer] CHOICE MEDICARE PPO Advance Directives For more information, please contact: [phone] * Full Code (Latest Code Status on File) Date Activated Date Inactivated Comments 02/24/2021 2:39 PM 03/04/2021 6:15 PM Care Teams Chisel Grinder Relationship Specialty Start Date End Date Lisa Gonzalez MD [address] [address] PCP - General 08/21/17 Lisa Gonzalez MD [address] [address] 08/21/17
--- OUTSIDE RECORDS SUMMARY | 2025-04-30 06:51 | XMS_ITS | Clinical Summary ---
Author Organization [facility] [address] [place] [id number] Care Team Providers Care Mainframe Architect Name Role Phone Lisa Gonzalez MD Primary Care Provider Lisa Gonzalez MD Unavailable [phone] Allergies Active Allergy Reactions Criticality Noted Date [...] as needed 1 Active cholecalciferol (VITAMIN D-3) 53783 unit capsule Take 2 capsules (20,000 Units [...] elbow 04/02/2024 Coronary artery disease invo lving [place] coronary artery of [place] heart without angina pectoris 02/21/2021 Overview (02/21/2021): Added automatically from request for surgery [id number] Surgical History Surgery Date Site/Laterality Comments CORONARY STENT PLACEMENT 11/25/2001 - 11/24/2002 Coronary Stent Placement BARIATRIC SURGERY 11/25/1998 - 11/24/1999 gastric bypass SKIN CANCER EXCISION 11/25/2014 - 11/24/2015 lower lip CHOLECYSTECTOMY APPENDECTOMY 11/25/1959 - 11/24/1960 ELBOW FRACTURE SURGERY 04/14/2024 Left Medical History Medical History Date Comments Cardiovascular disease Coronary Artery Disease Hypertension Hypertension Adiposity Obesity Coronary artery disease Myocardial infarction (HCC) 1999 Cough Squamous cell cancer of lip GERD (gastroesophageal reflux disease) Family History Medical History Relation Name Comments Heart attack Father Early Mother in childbi rth Relation Name Status Comments Father Mother Social History Tobacco Use Types Packs/Day Years [...] when you are drinking? 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 Gender Identity Not on file Sexual Orientation Not on file Obstetrics History Last Filed Vital Signs Vital Sign Reading [...] 04/18/2024 8:38 AM CDT Plan of Treatment Health Maintenance Due Date Last Done Comments Depression Screening 1943 DTaP/Tdap/Td Vaccine (1 - Tdap) 1954 Hepatitis B Screening 1961 Zoster Vaccine (1 of 2) 1993 Well Visit 65+ 2008 Pneumococcal vaccine 65+ (2 of 2 - PCV) 09/11/2014 1 Fall Risk Assessment 04/14/2025 04/14/2024 Influenza Vaccine (Season Ended) 2025 09/11/20 13 Medical Devices Implanted Type Area System Operation Superintendent Device Identifier Shelf Expiration Date Model / Serial / Lot Synthes 3.5mm 6mm 22mm 2.5mm Self Tap Small Hexagonal Socket Low Profile 204.822 - [id number] Implanted:Qty: 2 on 04/14/2024 by Wilton Domingo MD at [facility] Left: Elbow Synthes I 204.822 / / Synthes 2.7mm 60mm Self Tap Stardrive Elbow Metaphyseal T8 Screw Bone 02118.560 - [id number] Implanted:Qty: 2 on 04/14/2024 by Wilton Domingo MD at [facility] Left: Elbow Synthes I 02.118.560 / / Synthes 2.7mm 34mm Self Tap Stardrive Elbow Metaphyseal T8 Screw Bone 02.118.534 - [id number] Implanted:Qty: 1 on 04/14/2024 by Wilton Domingo MD at [facility] Left: Elbow Synthes I 02.118.534 / / Synthes 2.7mm 42mm Self Tap Stardrive Elbow Metaphyseal T8 Screw Bone 02.118.542 - [id number] Implanted:Qty: 1 on 04/14/2024 by Wilton Domingo MD at [facility] Left: Elbow Synthes I 02.118.542 / / Synthes Lcp Combi 90mm 2 Hole Variable Angle Taper Tip Round Profile 02.107.302s - [id number] Implanted:Qty: 1 on 04/14/2024 by Wilton Domingo MD at [facility] Left: Elbow Synthes I 12/25/2033 02.107.302S / / [id number] Insurance [employer] MEDICARE PPO [employer] MEDICARE PPO HUMANA CHOICE MEDICARE PPO Advance Directives For more information, please contact: [phone] * Full Code (Latest Code Status on File) Date Activated Date Inactivated Comments 02/24/2021 2:39 PM 03/04/2021 6:15 PM Care Teams Mainframe Architect Relationship Specialty Start Date End Date Lisa Gonzalez MD [address] [place] [address] PCP - General 08/21/17 Lisa Gonzalez MD [address] [place] [address] 08/21/17
--- OUTSIDE RECORDS SUMMARY | 2025-04-30 06:51 | XMS_ITS | Clinical Summary ---
Author Organization [facility] Address [address] [place]: Epic Prelude ADT [place]ASER [address] Care Team Providers Care Debt Recovery Officer Name Role Phone Unavailable Primary Care Provider Unavailabl e Allergies Active Allergy Reactions Criticality Noted Date Comments Penicillins Unknown 03/22/2023 Medications metoprolol tartrate (LOPRESSOR) 25 mg tablet TAKE 1/4 TABLET BY MOUTH TWO TIMES A DAY 45 Tablet 4 06/13/2022 11:47 AM CDT 2 Active clindamycin (CLEOCIN) 150 mg capsule Take 1 Capsule (150 mg) by mouth 3 times daily until gone. 30 Capsule 03/05/2023 12:59 PM CDT 3 Active metoprolol succinate (Toprol XL) 25 mg Extended Release 24 hour tablet Take 1 Tablet (25 mg) by mouth daily at bedtime. 90 Tablet 3 10/09/2023 2:13 PM MEMBERSHIP COORDINATOR 3 Active losartan (COZAAR) 50 mg tablet Take 1 Tablet (50 mg) by mouth daily. 90 Tablet 2 10/09/2023 2:13 PM MEMBERSHIP COORDINATOR 3 Active atorvastatin (LIPITOR) 40 mg tablet TAKE ONE TABLET BY MOUTH ONCE DAILY 90 Tablet 3 04/03/2024 2:44 PM CDT 3 Active empagliflozin (Jardiance) 10 mg tablet Take 1 tablet by mouth once a day 90 Tablet 3 05/28/2024 10:24 AM CDT 3 Active sodium chloride (Marifer 128) 5 % solution ADMINISTER 1 DROP IN THE RIGHT EYE 2 TIMES DAILY 15 mL 01/15/2024 12:36 PM MEMBERSHIP COORDINATOR 4 Active azelastine (ASTELIN) 137 mcg/actuation nasal spray ADMINISTER 1 SPRAY IN EACH NOSTRIL EVERY 12 HOURS. 30 mL 2 01/27/2024 11:24 AM MEMBERSHIP COORDINATOR 4 Active fluticasone propionate (FLONASE) 50 mcg/spray [place], Suspension nasal inhaler ADMINISTER 1 SPRAY IN EACH NOSTRIL ONCE DAILY. 16 Gram 2 01/27/2024 11:24 AM MEMBERSHIP COORDINATOR 4 Active HYDROcodone-anika taminophen (NORCO) 5-325 mg tablet Take 1-2 tablets by mouth every 4 hours as needed for pain 32 Tablet 04/14/2024 2:35 PM CDT 4 Active docusate sodium (Dulcolax Stool Softener, dss,) 100 mg capsule Take 1 capsule by mouth twice daily for constipation. Hold if having loose stools or diarrhea. 30 Capsule 1 4 Active hydrOXYzine HCL (ATARAX) 10 mg tablet Take 1 Tablet (10 mg) by mouth 3 times daily as needed for itching 20 Tablet 07/03/2024 9:54 AM CDT 4 Active predniSONE (DELTASONE) 10 mg tablet Take 4 tablets by mouth daily for 3 days, then take 3 tablets by mouth daily for 3 days, then take 2 tablets by mouth daily for 3 days, and then take 1 tablet by mouth daily for 3 days. 30 Tablet 07/03/2024 9:54 AM CDT 4 Active triamcinolone acetonide (KENALOG) 0.1 % Cream Apply to the affected area(s) twice daily 30 Gram 07/03/2024 9:54 AM CDT 4 Active atorvastatin (LIPITOR) 40 mg tablet TAKE ONE TABLET BY MOUTH ONCE DAILY 90 Tablet 3 03/29/2025 2:08 PM CDT 4 Active benzonatate (TESSALON) 100 mg capsule Take 2 Capsules (200 mg) by mouth 3 times daily as needed FOR COUGH. 60 Capsule 07/28/2024 11:20 AM CDT 4 Active azithromycin (ZITHROMAX) 250 mg tablet Take 2 tablets (500 mg) by mouth today (day 1), then take 1 tablet (250 mg) my mouth for 4 days (days 2-5). 6 Tablet 1 08/10/2024 3:26 PM CDT 4 Active benzonatate (TESSALON) 200 mg capsule Take 1 Capsule (200 mg) by mouth 3 times daily. 90 Capsule 08/06/2024 10:53 AM CDT 4 Active magnesium oxide (MAG-OX) 400 mg (241.3 mg magnesium) tablet Take 1 tablet by mouth twice a day 180 Tablet 3 4 Active losartan (COZAAR) 50 mg tablet Take 1 Tablet (50 mg) by mouth daily. 90 Tablet 2 10/20/2024 2:29 PM MEMBERSHIP COORDINATOR 4 Active metoprolol succinate (TOPROL XL) 25 mg Extended Release 24 hour tablet Take 1 Tablet (25 mg) by mouth daily at bedtime. 90 Tablet 2 04/26/2025 11:15 AM CDT 4 Active amoxicillin (AMOXIL) 250 mg capsule Take 1 Capsule (250 mg) by mouth every 8 hours until gone 21 Capsule 4 Active citalopram (CeleXA) 20 mg tablet TAKE ONE TABLET BY MOUTH ONCE DAILY 100 Tablet 1 03/29/2025 2:08 PM CDT 5 Active metFORMIN (GLUCOPHAGE XR) 500 mg Extended Release 24 hour tablet Take 1 tablet by mouth once daily with meals 90 Tablet 03/11/2025 4:28 PM CDT 5 Active ferrous sulfate 325 mg (65 mg iron) tablet Take 1 Tablet (325 mg) by mouth 3 times daily. 270 Tablet 03/13/2025 10:52 AM CDT 5 Active levothyroxine 25 mcg tablet Take 1 Tablet (25 mcg) by mouth daily in the morning. 90 Tablet 03/13/2025 10:52 AM CDT 5 Active gabapentin (NEURONTIN) 300 mg capsule TAKE TWO CAPSULES BY MOUTH AT BEDTIME 180 Capsule 1 03/29/2025 2:08 PM CDT 5 Active clopidogreL (PLAVIX) 75 mg Tablet TAKE ONE TABLET BY MOUTH ONCE DAILY 90 Tablet 1 03/29/2025 2:08 PM CDT 5 Active Immunizations Immunization Administration Dates Next Due INFLUENZA VACCINE HIGH DOSE QUADRIVALENT 65 YR U P PF IM 10/22/2023 Social History Tobacco Use Types Packs/Day Years Used Date Smoking Tobacco: Never Assessed Sex and Gender Information Value Date Recorded Sex Assigned at Not on file Legal Sex Male 3:27 PM CDT Gender Identity Not on file Sexual Orientation Not on file Plan of Treatment Health Maintenance Due Date Last Done Comments DTAP/TDAP/TD VACCINES (1 - Tdap) 1962 PNEUMOCOCCAL VACCINE 50+ YEARS (1 of 1 - PCV) 07/16/19 93 ZOSTER VACCINE (1 of 2) 1993 RSV VACCINE (60+ or ) (1 - 1-dose 75+ series) 2018 INFLUENZA VACCINE (#1) 2024 10/22/2023 Insurance RX [place] Medicare Part D RX [employer] (INTERNAL) [facility]
== END 2025-04-30 06:48 | disposition home or self-care (01) ==
PROVIDERS: PCP Family Medicine; Visit Provider Plastic Surgery
DX: M19.042 Primary osteoarthritis, left hand (principal); M19.041 Primary osteoarthritis, right hand; M19.032 Primary osteoarthritis, left wrist; M19.031 Primary osteoarthritis, right wrist
CPT/HCPCS: 73130

== ENCOUNTER 2025-05-22 02:04 | Emergency (ER) | payer MEDICARE, SELFPAY ==
[2025-05-22] VITALS (23 sets, daily range): BP systolic 115–134; BP diastolic 54–99; PULSE 77–94; RESP 12–35; TEMP 36.6; O2SAT 89–96
--- NOTE | ~2025-05-22 | CT_ITS ---
EXAMINATION: CT abdomen pelvis w con DATE: 05/22/2025 03:12 INDICATION: Abdominal pain TECHNIQUE: Computed tomography (CT) of the abdomen and pelvis was performed with 100 mL Omnipaque-350 intravenous contrast. Automated exposure control and iterative reconstruction technique were employe d. The dose-length product was 1347.81 mGy-cm. COMPARISON: CT dated 02/20/2022 FINDINGS: Bilateral lung bases are clear. Heart size is normal. No pericardial or pleural effusion. Median ster notomy wires likely for coronary artery bypass grafting and likely stenting along the circumflex basilia nary artery. Cardiac pacemaker leads in the right atrium and right ventricle. Old healed bilateral po sterior rib fractures. Gallbladder is not visualized likely surgically absent. Liver, spleen, pancrea s, bilateral adrenal glands and kidneys are normal. Postoperative change of prior gastric bypass proc edure. The appendix is not visualized. No pericecal inflammatory change to suggest acute appendicitis . No bowel obstruction. A few scattered colonic diverticula without adjacent comparison to suggest di verticulitis. Bladder is normal. No free intraperitoneal gas or fluid. No pathologically enlarged abd ominal or pelvic lymphadenopathy. Chronic appearing mild anterior wedging at T12-L2. Moderate disc he ight loss at L5-S1 with mild spondylosis more cephalad lumbar and lower thoracic spine.. IMPRESSION: 1. No acute intra-abdominal/pelvic process. Reviewed, dictated and finalized at location A.
[2025-05-22] MEDS: ONDANSETRON INJ 4 MG/2 ML VIAL IV PUSH (02:30)
[2025-05-22] MEDS: PANTOPRAZOLE SODIUM IV 40 MG VIAL IV PUSH (02:30)
--- NOTE | 2025-05-22 02:33 | ED_ITS ---
HPI - General Adult General Chief complaint: Nausea/Vomiting/Diarrhea Stated complaint: vomiting History of Present Illness HPI narrative: 79-year-old male presenting to the emergency department for evaluation for diffuse abdominal pain for the last few weeks with acute worsening of the abdominal pain and black tarry stools yesterday. Patient is on Plavix. Patient denies any prior history of a GI bleed. Patient denies any history gastritis. Patient denies any urinary symptoms. Related Data Home Medications ?Medication ?Instructions ?Recorded ?Confirmed ?Last Taken ?Type metoprolol succinate 25 mg 12.5 mg PO DAILY 01/22/24 02/23/25 Unknown History tablet,extended release 24 hr (Toprol XL) aspirin 81 mg tablet,delayed 81 mg PO DAILY 02/23/25 02/23/25 Unknown History release losartan 50 mg tablet 50 mg PO DAILY 02/23/25 02/23/25 Unknown History Allergies Allergy/AdvReac Type Severity Reaction Status Date / Time penicillin G Allergy Mild hives Verified 04/27/25 09:22 Penicillins Allergy Mild hives Verified 04/27/25 09:22 Review of Systems 2 Review of Systems: All systems reviewed & are unremarkable except as noted in HPI and below PMFSH Past Medical History Medical History (Updated 05/22/25 @ 03:31 by Andrew Aldana MD) Acute bronchitis COVID-19 long hauler COVID-19 Constipation Sinusitis Subacute maxillary sinusitis Diverticulitis Obesity (BMI 30-39.9) Restless leg syndrome Presence of cardiac pacemaker History of OK (myocardial infarction) GERD (gastroesophageal reflux disease) Neuropathy Major depressive disorder, recurrent, moderate Angelia's deformity History of stress test MDD (major depressive disorder) Mixed hyperlipidemia Benign reactive hypertension Glucose tolerance decreased BPH (benign prostatic hyperplasia) Myocardial infarction Gynecomastia, male CAD (coronary atherosclerotic disease) Surgical History Surgical History S/P CABG x 3 Bariatric surgery status History of left mastectomy S/P coronary artery stent placement Family History Family History Sibling Patient's sister is in good health Father Cerebrovascular accident Patient's father is Other Family history of cardiovascular disease Social History Social History Social History: Smoking status: Former smoker Tobacco type: cigarettes Second hand tobacco smoke exposure: No Smoking end date: 11/25/95 Alcohol intake: current Drinks per week: 5 Substance use: never Substance use type: does not use Do You Feel Safe in your Home?: Yes Lack of Transportation: No Lack of Food: Never True Current Housing: I Have Housing Concerned About Future Housing: No Difficulty Paying Gas/Electric Bills: No Difficulty Paying for Meds: No Currently Unemployed: No Education: Don't Know Difficulty w/ Childcare or Family Care: No Living arrangements: with family Occupation/Education: occupation Gender identity (if verbalized by the patient): Male Sexual Orientation (if Verbalized by the Patient): Straight or Heterosexual Exam 2 Narrative: APPEARANCE: Well appearing, no pain, no distress, well-nourished. HEAD: normocephalic, atraumatic. EYES: PERRLA/EOMI, conjunctivae clear. NOSE: Normal no drainage EARS:TMS clear with good light reflex. THROAT: Pharynx clear, no exudate. NECK: Supple. No adenopathy, no masses. RESPIRATORY: Airway patent, respirations nonlabored. Clear to auscultation bilaterally, no rales, rhonchi, wheezing. CARDIOVASCULAR: Regular rate and rhythm without murmurs rubs or gallops. ABDOMINAL: Soft, nontender, nondistended, normal bowel sounds MUSCULOSKELETAL: Moves all extremities. Strength/ROM intact, No edema, No calf tenderness. NEURO: Alert. Cranial nerves II through XII intact. Good gait. Good coordination SKIN: Warm, dry. Normal Color Rectal exam: Brown heme-positive stool Course Vital Signs Vital signs: Vital Signs Temperature 97.9 F 05/22/25 02:06 Pulse Rate 86 05/22/25 02:06 Respiratory Rate 12 05/22/25 02:06 Blood Pressure 134/87 05/22/25 02:06 Pulse Oximetry 96 05/22/25 02:06 Oxygen Delivery Room Air 05/22/25 02:06 Temperature 97.9 F 05/22/25 04:58 Pulse Rate 82 05/22/25 04:58 Respiratory Rate 14 05/22/25 04:58 Blood Pressure 117/58 L 05/22/25 04:58 Pulse Oximetry 92 05/22/25 04:58 Oxygen Delivery Room Air 05/22/25 02:06 Medical Decision Making MDM Narrative Medical decision making narrative: 79-year-old male on Plavix presenting to the emergency department for evaluation for abdominal pain. Patient has been taking intermittent Aleve and patient does take Plavix. Patient did not have dark tarry stool on the exam here patient's hemoglobin is 13.3 which is not far from his baseline patient's BUN and creatinine are similar to his baseline. Patient's CT scan shows prominence of the bladder wall which is nonspecific. No other abnormality seen in the pelvis. I did discuss the case with GI and they felt that the patient would not be scoped until Saturday. I discussed this with the patient and patient strongly prefers to go home. I had a lengthy discussion with the patient and family member on reasons to return to the emergency department. Patient was started on IV Protonix the emergency department and will be discharged home on Protonix. Patient will be provided outpatient follow-up with GI. Differential Diagnosis Differential Diagnosis: Colitis, diverticulitis, gastritis, upper GI bleed, lower GI bleed, hemorrhoids Vital Signs Vital Signs: Vital Signs Temperature 97.9 F 05/22/25 02:06 Pulse Rate 86 05/22/25 02:06 Respiratory Rate 12 05/22/25 02:06 Blood Pressure 134/87 05/22/25 02:06 Pulse Oximetry 96 05/22/25 02:06 Oxygen Delivery Room Air 05/22/25 02:06 Temperature 97.9 F 05/22/25 04:58 Pulse Rate 82 05/22/25 04:58 Respiratory Rate 14 05/22/25 04:58 Blood Pressure 117/58 L 05/22/25 04:58 Pulse Oximetry 92 05/22/25 04:58 Oxygen Delivery Room Air 05/22/25 02:06 Lab Data Lab results reviewed: Yes I reviewed the patient's lab results. 05/22/25 02:24 05/22/25 02:24 Labs: Lab Results 05/22/25 Range/Units 02:24 WBC 10.6 H (4.5-10.0) K/mm3 RBC 4.42 L (4.6-6.20) M/mm3 Hgb 13.3 L (14.0-18.0) g/dL Hct 40.5 L (42.0-52.0) % MCV 91.6 (80-100) fl MCH 30.1 (26-34) pg MCHC 32.8 (32-36) g/dl RDW 12.5 (11.5-14.5) % Plt Count 233 (150-375) k/mm3 MPV 9.0 (7.4-10.4) fl Immature Gran % (Auto) 0.4 (0-0.5) % Neut % (Auto) 67.8 (45.5-73.1) % Lymph % (Auto) 22.4 (18.3-44.2) % Elk % (Auto) 7.0 (2.6-8.5) % Eos % (Auto) 1.8 (0-4.4) % Baso % (Auto) 0.6 (0.2-1.2) % Lymph # (Auto) 2.38 (0.9-3.2) K/mm3 Elk # (Auto) 0.7 H (0.1-0.6) K/mm3 Eos # (Auto) 0.2 (0-0.3) K/mm3 Baso # (Auto) 0.1 (0.0-0.1) K/mm3 Abs Immat Gran (auto) 0.04 H (0.00-0.031) K/mm3 Absolute Neuts (auto) 7.2 H (1.3-6.7) K/mm3 Absolute Nucleated RBC 0.000 (0.0-0.012) K/mm3 Nucleated RBC % 0.0 (0.0-0.2) % Sodium 137 (137-145) mmol/L Potassium 3.9 (3.4-5.0) mmol/L Chloride 99 (98-107) mmol/L Carbon Dioxide 29 (22-30) mmol/L Anion Gap 9 (4-12) mmol/L BUN 22 H (9-20) mg/dL Creatinine 0.83 (0.7-1.3) mg/dL Estim Creat Clear Calc 84 ml/min Estimated GFR > 60 (59 - ) Glucose 106 (65-110) mg/dL Lactic Acid 0.9 (0.7-2.0) mmol/L Calcium 9.2 (8.4-10.2) mg/dL Total Bilirubin 0.6 (0.2-1.3) mg/dL AST 27 (17-59) U/L ALT 20 (6-50) U/L Alkaline Phosphatase 66 (38-126) U/L Total Protein 7.2 (6.3-8.2) g/dL Albumin 4.1 (3.5-5.1) g/dL Lipase 159 (23-300) U/L Blood Type O Positive Antibody Screen Negative Imaging Data Radiologist's impression: Overnight read Prominence of the bladder wall is nonspecific. No other acute abnormalities in the pelvis or abdomen Discharge Plan Discharge Clinical Impression: Acute upper gastrointestinal bleeding, Heme positive stool Patient Disposition: Home Condition: Stable Instructions: Antibiotic Form, Diet for Stomach Ulcers and Gastritis (ED) Additional Instructions: Protonix as directed. Avoid alcohol and avoid NSAIDs. Follow a bland diet. Have close follow-up with GI. If you have any worsening symptoms please call or return to the emergency department. Patient Language: Cymraes Prescriptions: New pantoprazole [Protonix] 40 mg tablet,delayed release (DR/EC) 40 mg PO HS 28 Days Qty: 28 0RF No Action losartan 50 mg tablet 50 mg PO DAILY aspirin 81 mg tablet,delayed release (DR/EC) 81 mg PO DAILY clopidogrel 75 mg tablet 75 mg PO DAILY Qty: 90 3RF pantoprazole [Protonix] 40 mg tablet,delayed release (DR/EC) 40 mg PO QAM Qty: 30 0RF up4 Probiotics-Mind and Body 1 billion cell tablet,chewable 1 tablet PO .qd Qty: 90 0RF metoprolol succinate [Toprol XL] 25 mg tablet extended release 24 hr 12.5 mg PO DAILY Rx Instructions: as per cardio azelastine 137 mcg (0.1 %) aerosol,spray 137 mcg NASAL Q12H Qty: 30 2RF Rx Instructions: administer into each nostril fluticasone propionate 50 mcg/actuation spray,suspension 1 spray NASAL DAILY Qty: 18.2 2RF Rx Instructions: administer into each nostril atorvastatin 40 mg tablet See Rx Instructions .ROUTE .COMPLEX Qty: 90 0RF Dose Instruction: TAKE ONE TABLET BY MOUTH ONCE DAILY Rx Instructions: TAKE ONE TABLET BY MOUTH ONCE DAILY citalopram 20 mg tablet See Rx Instructions .ROUTE .COMPLEX Qty: 100 1RF Dose Instruction: TAKE ONE TABLET BY MOUTH ONCE DAILY Rx Instructions: TAKE ONE TABLET BY MOUTH ONCE DAILY gabapentin 300 mg capsule See Rx Instructions .ROUTE .COMPLEX Qty: 180 1RF Dose Instruction: TAKE TWO CAPSULES BY MOUTH AT BEDTIME Rx Instructions: TAKE TWO CAPSULES BY MOUTH AT BEDTIME Follow-up/Referrals: Jose Alonso MD [Primary Care Provider] - Pritesh Winters MD [Physician] -
[2025-05-22 02:37] LABS: Basophils Absolute Auto 0.1 K/mm3 (0.0-0.1); Basophils Percent Auto 0.6 % (0.2-1.2); Eosinophils Absolute Auto 0.2 K/mm3 (0-0.3); Eosinophils Percent Auto 1.8 % (0-4.4); Hematocrit 40.5 % (42.0-52.0); Hemoglobin 13.3 g/dL (14.0-18.0); Immature Granulocyte Absolute 0.04 K/mm3 (0.00-0.031); Immature Granulocyte Percent A 0.4 % (0-0.5); Lymphocytes Absolute Auto 2.38 K/mm3 (0.9-3.2); Lymphocytes Percent Auto 22.4 % (18.3-44.2); Mean Corpuscular HGB Conc 32.8 g/dl (32-36); Mean Corpuscular Hemoglobin 30.1 pg (26-34); Mean Corpuscular Volume 91.6 fl (80-100); Monocytes Absolute Auto 0.7 K/mm3 (0.1-0.6); Neutrophils Absolute Auto 7.2 K/mm3 (1.3-6.7); Neutrophils Percent Auto 67.8 % (45.5-73.1); Platelet Count Result 233 k/mm3 (150-375); Red Blood Count 4.42 M/mm3 (4.6-6.20); Red Cell Distribution Width 12.5 % (11.5-14.5); White Blood Count 10.6 K/mm3 (4.5-10.0)
[2025-05-22 02:45] LABS: Alanine Aminotransferase 20 U/L (6-50); Albumin Level 4.1 g/dL (3.5-5.1); Alkaline Phosphatase 66 U/L (38-126); Anion Gap 9 mmol/L (4-12); Aspartate Amino Transferase 27 U/L (17-59); Bilirubin,Total 0.6 mg/dL (0.2-1.3); Blood Urea Nitrogen 22 mg/dL (9-20); Calcium 9.2 mg/dL (8.4-10.2); Carbon Dioxide 29 mmol/L (22-30); Chloride 99 mmol/L (98-107); Estimated CRCL calculation 84 ml/min; Estimated Glomerular Filt Rate > 60; Glucose 106 mg/dL (65-110); Lactic Acid Reflex 0.9 mmol/L (0.7-2.0); Lipase 159 U/L (23-300); Potassium 3.9 mmol/L (3.4-5.0); Sodium 137 mmol/L (137-145); Total Protein 7.2 g/dL (6.3-8.2)
== END 2025-05-22 04:59 | disposition home or self-care (01) ==
PROVIDERS: Emergency Provider Emergency Medicine; PCP Family Medicine
DX: K92.2 Gastrointestinal hemorrhage, unspecified (principal); R19.5 Other fecal abnormalities; I10 Essential (primary) hypertension; I25.10 Atherosclerotic heart disease of native coronary artery without angina pectoris; I25.2 Old myocardial infarction; E66.9 Obesity, unspecified; Z68.35 Body mass index [BMI] 35.0-35.9, adult; E78.2 Mixed hyperlipidemia; N40.0 Benign prostatic hyperplasia without lower urinary tract symptoms; K21.9 Gastro-esophageal reflux disease without esophagitis; G62.9 Polyneuropathy, unspecified; G25.81 Restless legs syndrome; Z95.0 Presence of cardiac pacemaker; Z95.1 Presence of aortocoronary bypass graft; Z95.5 Presence of coronary angioplasty implant and graft; Z98.84 Bariatric surgery status; Z87.891 Personal history of nicotine dependence; Z90.12 Acquired absence of left breast and nipple; Z79.02 Long term (current) use of antithrombotics/antiplatelets; Z79.82 Long term (current) use of aspirin; Z79.899 Other long term (current) drug therapy
CPT/HCPCS: 36415; 74177; 80053; 83605; 83690; 85025; 86850; 86900; 86901; 96374; 96375; 99284; J2405; J2470; Q9967

== ENCOUNTER 2025-05-31 21:29 | Emergency (ER) | payer MEDICARE, SELFPAY ==
--- NOTE | ~2025-05-31 | XR_ITS ---
EXAMINATION: XR chest 2V Exam Date/Time: 05/31/2025 21:55 CDT HISTORY: SOB ALL DAY WITH FEVER COST CONSULTANT Comparison: None. RESULT: Lines, tubes, and devices: Intact sternotomy wires. Left chest pacer with intact leads. Surgical cli ps over the left upper quadrant. Lungs and pleura: Clear. Cardiomediastinal silhouette: Unremarkable. Other: No acute osseous or upper abdominal finding. IMPRESSION: No acute cardiopulmonary process. Reviewed, dictated and finalized at location K.
--- NOTE | ~2025-05-31 | CT_ITS ---
EXAMINATION: CTA chest PE protocol DATE: 05/31/2025 22:57 INDICATION: SOB TECHNIQUE: Computed tomography angiography (CTA) of the chest was performed with 100 mL Omnipaque-350 intravenous contrast timed to evaluate the pulmonary arteries. Coronal maximum intensity projection 3D-reconstructions were created by the technologist. The dose-length product (DLP) was 949.56 mGy-cm. Automated exposure control and iterative reconstruction technique were employed. COMPARISON: X-ray chest, same date; CT abdomen pelvis 05/14/2025. FINDINGS: Lung parenchyma and airways: Clear. Scattered granulomatous calcifications. Pleura: Pleural calcifications in the right posterior costophrenic sulcus, to a lesser extent in the left posterior costophrenic sulcus, possibly from prior trauma/hemothorax. Thoracic inlet, axillae and chest wall: Left chest pacer with intact leads. Asymmetric gynecomastia o n the right. Thoracic aorta: No significant dilation. No dissection. Mediastinum: Normal. Heart and pericardium: Normal. Coronary artery calcifications: Moderate. Upper abdomen: Prior gastric surgery. Bones: No acute osseous finding. Old bilateral rib fractures. Pulmonary arteries: Study quality: Adequate. No pulmonary emboli detected. IMPRESSION: No CT evidence of acute pulmonary embolus. No acute process detected in the chest. Asymmetric right gynecomastia. Recommend nonemergent but timely breast ultrasound and mammography for further evaluation. Reviewed, dictated and finalized at location K. IMPRESSION: No CT evidence of acute pulmonary embolus. No acute process detected in the chest. Asymmetric right gynecomastia. Recommend nonemergent but timely breast ultrasou nd and mammography for further evaluation.
--- OUTSIDE RECORDS SUMMARY | 2025-05-31 21:31 | XMS_ITS | Clinical Summary ---
Author Organization [facility] Physician Of [facility] [address] [place] [id number] Care Team Providers Care Flight Tower Dispatcher Name Role Phone Lisa Gonzalez MD Primary Care Provider Lisa Gonzalez MD Unavailable [phone] Allergies Active Allergy Reactions Criticality Noted Date [...] as needed 1 Active cholecalciferol (VITAMIN D-3) 25535 unit capsule Take 2 capsules (20,000 Units [...] Active Problems Problem Noted Date Diagnosed Date Encounter for screening for malignant neoplasm o f colon 05/21/2025 Abdominal pain 05/21/2025 Closed fracture of left elbow 04/02/2024 Coronary artery disease invo lving [place] coronary artery of [place] heart without angina pectoris 02/21/2021 Overview (02/21/2021): Added automatically from request for surgery [id number] Encounters Date Type Department Care Team Description 05/19/2025 Telephone [facility] Gastroenterology at [address] [address] Betty Caldwell MD Colonoscopy; EGD from Last 3 Months Surgical History Surgery Date Site/Laterality Comments CORONARY [...] on file 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 Gender Identity Not on file Sexual Orientation [...] Fall Risk Assessment 04/14/2025 04/14/2024 Influenza Vaccine (#1) 2025 09/11/2013 Medical Devices Implanted Type Area Cigar Patcher Device Identifier Shelf Expiration Date Model / Serial / Lot Synthes 3.5mm 6mm 22mm 2.5mm Self Tap Small Hexagonal Socket Low Profile 204.822 - [id number] Implanted:Qty: 2 on 04/14/2024 by Wilton Domingo MD at [facility] Left: Elbow Synthes I 204.822 / / Synthes 2.7mm 60mm Self Tap Stardrive Elbow Metaphyseal T8 Screw Bone 02.118.560 - [id number] Implanted:Qty: 2 on 04/14/2024 by Wilton Domingo MD at [facility] Left: Elbow Synthes I 02.118.560 / / Synthes 2.7mm 34mm Self Tap Stardrive Elbow Metaphyseal T8 Screw Bone 02.118.534 - [id number] Implanted:Qty: 1 on 04/14/2024 by Wilton Domingo MD at [facility] Left: Elbow Synthes I 02.118.534 / / Synthes 2.7mm 42mm Self Tap Stardrive Elbow Metaphyseal T8 Screw Bone 02.118.542 - [id number] Implanted:Qty: 1 on 04/14/2024 by Wilton Domingo MD at [facility] Left: Elbow Synthes I 02.118.542 / / Synthes Lcp Combi 90mm 2 Hole Variable Angle Taper Tip Round Profile 02.107.302s - [id number] Implanted:Qty: 1 on 04/14/2024 by Wilton Domingo MD at [facility] Left: Elbow Synthes I 12/25/2033 02.107.302S / / [id number] Insurance [employer] CHOICE MEDICARE PPO [employer] MEDICARE PPO [employer] CHOICE MEDICARE PPO Advance Directives For more information, please contact: [phone] * Full Code (Latest Code Status on File) Date Activated Date Inactivated Comments 02/24/2021 2:39 PM 03/04/2021 6:15 PM Care Teams Flight Tower Dispatcher Relationship Specialty Start Date End Date Lisa Gonzalez MD [address] [facility] [address] [place] [address] PCP - General 08/21/17 Lisa Gonzalez MD [address] [place] [id number] 08/21/17
--- OUTSIDE RECORDS SUMMARY | 2025-05-31 21:31 | XMS_ITS | Clinical Summary ---
Author Organization [facility] Address [address] [place]: Epic Prelude ADT NOLBERTO FRASER [address] Care Team Providers Care Gas Engine Mechanic Name Role Phone Unavailable Primary Care Provider [...] bedtime. 90 Tablet 3 10/09/2023 2:13 PM MOCCASIN SEWER 3 Active losartan (COZAAR) 50 mg tablet Take 1 Tablet (50 mg) by mouth daily. 90 Tablet 2 10/09/2023 2:13 PM MOCCASIN SEWER 3 Active atorvastatin (LIPITOR) 40 mg tablet [...] TIMES DAILY 15 mL 01/15/2024 12:36 PM MOCCASIN SEWER 4 Active azelastine (ASTELIN) 137 mcg/actuation nasal spray ADMINISTER 1 SPRAY IN EACH NOSTRIL EVERY 12 HOURS. 30 mL 2 01/27/2024 11:24 AM MOCCASIN SEWER 4 Active fluticasone propionate (FLONASE) 50 mcg/spray Thelma, Suspension nasal inhaler ADMINISTER 1 SPRAY IN EACH NOSTRIL ONCE DAILY. 16 Gram 2 01/27/2024 11:24 AM MOCCASIN SEWER 4 Active HYDROcodone-anika taminophen (NORCO) 5-325 mg [...] daily. 90 Tablet 2 10/20/2024 2:29 PM MOCCASIN SEWER 4 Active metoprolol succinate (TOPROL XL) 25 [...] 1 03/29/2025 2:08 PM CDT 5 Active pantoprazole (PROTONIX) 40 mg Tablet, Delayed Release (E.C.) Take 1 Tablet (40 mg) by mouth daily at bedtime for 28 days. 28 Tablet 05/22/2025 12:39 PM CDT 5 06/19/20 25 Active Immunizations Immunization Administration Dates Next Due [...] 1-dose 75+ series) 2018 INFLUENZA VACCINE (#1) 2025 10/22/2023 Insurance RX [employer] Medicare Part D RX KAUR PLANS (INTERNAL) [facility]
--- OUTSIDE RECORDS SUMMARY | 2025-05-31 21:31 | XMS_ITS | Referral Summary ---
Author Organization [facility] Physician Of [facility] [address] [place] [address] Care Team Providers Care Inspector Set Up And Lay Out Name Role Phone Lisa Gonzalez MD Primary Care Provider Lisa Gonzalez MD Unavailable [phone] Encounters Date Type Department Care Team Description 05/19/2025 Telephone [facility] Gastroenterology at [address] [address] Betty Caldwell MD Colonoscopy; EGD from Last 3 Months Allergies Active Allergy Reactions Criticality Noted Date [...] as needed 1 Active cholecalciferol (VITAMIN D-3) 07854 unit capsule Take 2 capsules (20,000 Units [...] elbow 04/02/2024 Coronary artery disease invo lving [place] coronary artery of [place] heart without angina pectoris 02/21/2021 Overview (02/21/2021): Added automatically from request for surgery [id number] Social History Tobacco Use Types Packs/Day Years [...] on file 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 Gender Identity Not on file Sexual Orientation [...] on file Medical Devices Implanted Type Area Tobacco Sweeper Device Identifier Shelf Expiration Date Model / Serial / Lot Synthes 3.5mm 6mm 22mm 2.5mm Self Tap Small Hexagonal Socket Low Profile 204.822 - [id number] Implanted:Qty: 2 on 04/14/2024 by Wilton Domingo MD at [facility] Left: Elbow Synthes I 204.822 / / Synthes 2.7mm 60mm Self Tap Stardrive Elbow Metaphyseal T8 Screw Bone 02.118.560 - [id number] Implanted:Qty: 2 on 04/14/2024 by Wilton Domingo MD at [facility] Left: Elbow Synthes I 02.118.560 / / Synthes 2.7mm 34mm Self Tap Stardrive Elbow Metaphyseal T8 Screw Bone 02.118.534 - [id number] Implanted:Qty: 1 on 04/14/2024 by Wilton Domingo MD at [facility] Left: Elbow Synthes I 02.118.534 / / Synthes 2.7mm 42mm Self Tap Stardrive Elbow Metaphyseal T8 Screw Bone 02.118.542 - [id number] Implanted:Qty: 1 on 04/14/2024 by Wilton Domingo MD at [facility] Left: Elbow Synthes I 02.118.542 / / Synthes Lcp Combi 90mm 2 Hole Variable Angle Taper Tip Round Profile 02.107.302s - [id number] Implanted:Qty: 1 on 04/14/2024 by Wilton Domingo MD at [facility] Left: Elbow Synthes I 12/25/2033 02.107.302S / / [id number] Insurance [facility] [employer] MEDIC[facility] PPO [facility] [employer] MEDICARE PPO [employer] MEDICARE PPO Advance Directives For more information, please contact: [phone] * Full Code (Latest Code Status on File) Date Activated Date Inactivated Comments 02/24/2021 2:39 PM 03/04/2021 6:15 PM Care Teams Inspector Set Up And Lay Out Relationship Specialty Start Date End Date Lisa Gonzalez MD [address] [place] [address] [place] [address] PCP - General 08/21/17 Lisa Gonzalez MD [address] [place] [address] 08/21/17
[2025-05-31 21:32] VITALS: BP 93/49; PULSE 84; RESP 18; TEMP 36.9; O2SAT 93
--- NOTE | 2025-05-31 21:32 | ECG_ITS ---
Test Date: 2025-05-31 21:36:03 Measurements Intervals [place] Rate: 86 P: 101 HI: 214 QRS: -53 QRSD: 113 T: 20 QT: 351 QTc: 421 Interpretive Statements ELECTRONIC ATRIAL PACEMAKER pvcs PATTERN CONSISTENT WITH PULMONARY DISEASE LEFT ANTERIOR FASCICULAR BLOCK [QRS AXIS <= -45, QR IN I, RS IN II] No previous ECG available for comparison Electronically Signed On 05-31-2025 22:07:37 CDT by Elsi Goins M.D.
[2025-05-31 21:49] LABS: Hematocrit 38.5 % (42.0-52.0); Hemoglobin 12.7 g/dL (14.0-18.0); Immature Granulocyte Percent A 0.3 % (0-0.5); Lymphocytes Absolute Auto 0.74 K/mm3 (0.9-3.2); Mean Corpuscular HGB Conc 33.0 g/dl (32-36); Mean Corpuscular Hemoglobin 30.2 pg (26-34); Mean Corpuscular Volume 91.7 fl (80-100); Nucleated Red Blood Cells Absolute Auto 0.000 K/mm3 (0.0-0.012); Nucleated Red Blood Cells Perc 0.0 % (0.0-0.2); Platelet Count Result 196 k/mm3 (150-375); Red Blood Count 4.20 M/mm3 (4.6-6.20); White Blood Count 10.5 K/mm3 (4.5-10.0)
[2025-05-31 21:59] LABS: Alanine Aminotransferase 24 U/L (6-50); Albumin Level 3.9 g/dL (3.5-5.1); Alkaline Phosphatase 57 U/L (38-126); Anion Gap 8 mmol/L (4-12); Aspartate Amino Transferase 31 U/L (17-59); Bilirubin,Total 0.5 mg/dL (0.2-1.3); Blood Urea Nitrogen 18 mg/dL (9-20); Calcium 8.6 mg/dL (8.4-10.2); Carbon Dioxide 23 mmol/L (22-30); Chloride 103 mmol/L (98-107); Estimated CRCL calculation 60 ml/min; Estimated Glomerular Filt Rate 59; Glucose 119 mg/dL (65-110); Potassium 4.0 mmol/L (3.4-5.0); Sodium 134 mmol/L (137-145); Total Protein 6.9 g/dL (6.3-8.2)
--- OUTSIDE RECORDS SUMMARY | 2025-05-31 22:18 | XMS_ITS | Clinical Summary ---
Author Organization [facility] Address [address] [place]afuer[place]: Epic Prelude ADT NOLBERTO FRASER [address] Care Team Providers Care Cotton Picker Operator Name Role Phone Unavailable Primary Care Provider [...] bedtime. 90 Tablet 3 10/09/2023 2:13 PM FACTORY MANAGER 3 Active losartan (COZAAR) 50 mg tablet Take 1 Tablet (50 mg) by mouth daily. 90 Tablet 2 10/09/2023 2:13 PM FACTORY MANAGER 3 Active atorvastatin (LIPITOR) 40 mg tablet [...] TIMES DAILY 15 mL 01/15/2024 12:36 PM FACTORY MANAGER 4 Active azelastine (ASTELIN) 137 mcg/actuation nasal spray ADMINISTER 1 SPRAY IN EACH NOSTRIL EVERY 12 HOURS. 30 mL 2 01/27/2024 11:24 AM FACTORY MANAGER 4 Active fluticasone propionate (FLONASE) 50 mcg/spray [place], Suspension nasal inhaler ADMINISTER 1 SPRAY IN EACH NOSTRIL ONCE DAILY. 16 Gram 2 01/27/2024 11:24 AM FACTORY MANAGER 4 Active HYDROcodone-anika taminophen (NORCO) 5-325 mg [...] daily. 90 Tablet 2 10/20/2024 2:29 PM FACTORY MANAGER 4 Active metoprolol succinate (TOPROL XL) 25 [...] INFLUENZA VACCINE (#1) 2025 10/22/2023 Insurance RX [employer] Medicare Part D RX KAUR PLANS (INTERNAL) [facility]
--- OUTSIDE RECORDS SUMMARY | 2025-05-31 22:18 | XMS_ITS | Clinical Summary ---
Author Organization [facility] Physician Of [facility] [address] [place] [address] Care Team Providers Care Neonatal Intensive Care Unit Nurse Name Role Phone Lisa Gonzalez MD Primary Care Provider Lisa Gonzalez MD Unavailable [phone] Allergies Active Allergy Reactions Criticality Noted Date [...] as needed 1 Active cholecalciferol (VITAMIN D-3) 22685 unit capsule Take 2 capsules (20,000 Units [...] elbow 04/02/2024 Coronary artery disease invo lving [place] coronary artery of [place] heart without angina pectoris 02/21/2021 Overview (02/21/2021): Added automatically from request for surgery [id number] Encounters Date Type Department Care Team Description 05/19/2025 Telephone [facility] Gastroenterology at [address] [address] Betty Caldwell MD Colonoscopy; EGD [...] on file 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118.560 / / Synthes 2.7mm 34mm Self Tap Stardrive Elbow Metaphyseal T8 Screw Bone 02.118.534 - [id number] Implanted:Qty: 1 on 04/14/2024 by Wilton Domingo MD at [facility] Left: Elbow Synthes I 02.118.534 / / Synthes 2.7mm 42mm Self Tap Stardrive Elbow Metaphyseal T8 Screw Bone 02.118.542 - [id number] Implanted:Qty: 1 on 04/14/2024 by Wilton Domingo MD at [facility] Left: Elbow Synthes I 02.118.542 / / Synthes Lcp Combi 90mm 2 Hole Variable Angle Taper Tip Round Profile 02.107.302s - [id number] Implanted:Qty: 1 on 04/14/2024 by Wilton Domingo MD at [facility] Left: Elbow Synthes I 12/25/2033 02.107.302S / / [id number] Insurance [employer] CHOICE MEDICARE PPO [place] MEDICARE PPO [employer] CHOICE MEDICARE PPO Advance Directives For more information, please contact: [phone] * Full Code (Latest Code Status on File) Date Activated Date Inactivated Comments 02/24/2021 2:39 PM 03/04/2021 6:15 PM Care Teams Neonatal Intensive Care Unit Nurse Relationship Specialty Start Date End Date Lisa Gonzalez MD [address] [facility] [address] [place] [address] PCP - General 08/21/17 Lisa Gonzalez MD [address] [place] [id number] 08/21/17
--- OUTSIDE RECORDS SUMMARY | 2025-05-31 22:18 | XMS_ITS | Referral Summary ---
Author Organization [facility] Phys[facility] [address] [place] [id number] Care Team Providers Care Dairy Equipment Specialist Name Role Phone Lisa Gonzalez MD Primary Care Provider Lisa Gonzalez MD Unavailable [phone] Encounters Date Type Department Care Team Description 05/19/2025 Telephone [facility] Medical Group Gastroenterology at [address] [address] Betty Caldwell MD Colonoscopy; EGD [...] as needed 1 Active cholecalciferol (VITAMIN D-3) 38694 unit capsule Take 2 capsules (20,000 Units [...] elbow 04/02/2024 Coronary artery disease invo lving [place] coronary artery of [place] heart without angina pectoris 02/21/2021 Overview (02/21/2021): Added automatically from request for surgery [id number] Social History Tobacco Use Types Packs/Day Years [...] on file 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 Gender Identity Not on file Sexual Orientation [...] on file Medical Devices Implanted Type Area Camp Nurse Device Identifier Shelf Expiration Date Model / Serial / Lot Synthes 3.5mm 6mm 22mm 2.5mm Self Tap Small Hexagonal Socket Low Profile 204.822 - [id number] Implanted:Qty: 2 on 04/14/2024 by Wilton Domingo MD at [facility] Left: Elbow Synthes I 204.822 / / Synthes 2.7mm 60mm Self Tap Stardrive Elbow Metaphyseal T8 Screw Bone 02.118.560 - [id number] Implanted:Qty: 2 on 04/14/2024 by Wilton Domingo MD at [facility] Left: Elbow Synthes I 02.118.560 / / Synthes 2.7mm 34mm Self Tap Stardrive Elbow Metaphyseal T8 Screw Bone 02.118.534 - [id number] Implanted:Qty: 1 on 04/14/2024 by Wilton Domingo MD at [facility] Left: Elbow Synthes I 02.118.534 / / Synthes 2.7mm 42mm Self Tap Stardrive Elbow Metaphyseal T8 Screw Bone 02.118.542 - [id number] Implanted:Qty: 1 on 04/14/2024 by Wilton Domingo MD at [facility] Left: Elbow Synthes I 02.118.542 / / Synthes Lcp Combi 90mm 2 Hole Variable Angle Taper Tip Round Profile 02.107.302s - [id number] Implanted:Qty: 1 on 04/14/2024 by Wilton Domingo MD at [facility] Left: Elbow Synthes I 12/25/2033 02.107.302S / / [id number] Insurance [employer] MEDICARE PPO [employer] MEDICARE PPO [employer]NA [employer] MEDICARE PPO Advance Directives For more information, please contact: [phone] * Full Code (Latest Code Status on File) Date Activated Date Inactivated Comments 02/24/2021 2:39 PM 03/04/2021 6:15 PM Care Teams Dairy Equipment Specialist Relationship Specialty Start Date End Date Lisa Gonzalez MD [address] [place] [address] PCP - General 08/21/17 Lisa Gonzalez MD [address] [place] [address] 08/21/17
[2025-05-31 22:29] VITALS: BP 101/59; PULSE 97; RESP 17; TEMP 37.4; O2SAT 95
[2025-05-31 22:31] VITALS: PULSE 75
[2025-05-31 22:32] VITALS: BP 105/59; PULSE 95; RESP 14; TEMP 37.4; O2SAT 96
[2025-05-31 22:33] VITALS: O2SAT 94
--- NOTE | 2025-05-31 22:33 | ED_ITS ---
HPI - General Adult General Chief complaint: Shortness of Breath/Dyspnea Stated complaint: SOB Time Seen by Provider: 05/31/25 21:55 History of Present Illness HPI narrative: Patient is an 79-year-old male who presents to the emergency department this evening complaining of shortness of breath which started this evening and generalized weakness. States that he has been all day in bed as he gets more short of breath with exertion. Denies any recent illness, fevers or chills. Patient states that he was here last week due to concern for stomach ulcer and he was discharged home. Denies any active chest pain. Denies any history of COPD or asthma. Related Data Home Medications ?Medication ?Instructions ?Recorded ?Confirmed ?Last Taken ?Type metoprolol succinate 25 mg 12.5 mg PO DAILY 01/22/24 05/27/25 Unknown History tablet,extended release 24 hr (Toprol XL) aspirin 81 mg tablet,delayed 81 mg PO DAILY 02/23/25 05/27/25 Unknown History release losartan 50 mg tablet 50 mg PO DAILY 02/23/25 05/27/25 Unknown History azelastine 137 mcg (0.1 %) nasal 137 mcg intranasal Q12H PRN 05/27/25 05/27/25 Unknown History spray allergy symptoms fluticasone propionate 50 1 spray intranasal DAILY PRN 05/27/25 05/27/25 Unknown History mcg/actuation nasal allergy symptoms spray,suspension magnesium oxide 400 mg (241.3 mg 400 mg PO DAILY 05/27/25 05/27/25 Unknown History magnesium) tablet metformin 500 mg tablet,extended 500 mg PO QPM 05/27/25 05/27/25 Unknown History release 24 hr multivitamin (Daily Multi-Vitamin 1 tablet PO DAILY 05/27/25 05/27/25 Unknown History tablet) Allergies Allergy/AdvReac Type Severity Reaction Status Date / Time penicillin G Allergy Mild hives Verified 05/31/25 22:32 Penicillins Allergy Mild hives Verified 05/31/25 22:32 Review of Systems 2 Review of Systems: All systems are reviewed and are negative unless stated otherwise in the HPI. [facility] Past Medical History Medical History Acute bronchitis COVID-19 long hauler COVID-19 Constipation Sinusitis Subacute maxillary sinusitis Diverticulitis Obesity (BMI 30-39.9) Restless leg syndrome Presence of cardiac pacemaker History of KS (myocardial infarction) GERD (gastroesophageal reflux disease) Neuropathy Major depressive disorder, recurrent, moderate Angelia's deformity History of stress test MDD (major depressive disorder) Mixed hyperlipidemia Benign reactive hypertension Glucose tolerance decreased BPH (benign prostatic hyperplasia) Myocardial infarction Gynecomastia, male CAD (coronary atherosclerotic disease) Surgical History Surgical History S/P CABG x 3 Bariatric surgery status History of left mastectomy S/P coronary artery stent placement Family History Family History Sibling Patient's sister is in good health Father Cerebrovascular accident Patient's father is Other Family history of cardiovascular disease Social History Social History Social History: Smoking status: Former smoker Tobacco type: cigarettes Second hand tobacco smoke exposure: No Alcohol intake: former Substance use: never Substance use type: does not use Do You Feel Safe in your Home?: Yes Lack of Transportation: No Lack of Food: Never True Current Housing: I Have Housing Concerned About Future Housing: No Difficulty Paying Gas/Electric Bills: No Difficulty Paying for Meds: No Currently Unemployed: No Education: Don't Know Difficulty w/ Childcare or Family Care: No Living arrangements: with family Occupation/Education: occupation Gender identity (if verbalized by the patient): Male Sexual Orientation (if Verbalized by the Patient): Straight or Heterosexual Spiritual care concerns: No Exam 2 Narrative: General: Alert, awake, afebrile, in no acute distress. HEENT: PERRL, no rhinorrhea, no post nasal drip, oropharynx clear. Neck: Trachea midline, no JVD, no lymphadenopathy. Cardiovascular: Regular rate and rhythm, no murmurs, rubs or gallops, no peripheral edema. Respiratory: Clear to auscultation bilaterally, no tachypnea, no wheezing, no rhonchi, no rubs, no respiratory distress. Abdomen: Soft, nontender, nondistended, no rebound, no guarding, no peritoneal signs. Musculoskeletal: No joint swelling or deformity, normal muscle tone. Skin: No rashes or petechia, no signs of infection. Psychiatric: Alert and oriented, normal behavior and judgment for situation. Neurological: Alert and oriented to person, place, and time. Follows all commands. No focal deficits, speech is clear and fluent. Course Vital Signs Vital signs: Vital Signs Temperature 98.4 F 05/31/25 21:32 Pulse Rate 84 05/31/25 21:32 Respiratory Rate 18 05/31/25 21:32 Blood Pressure 93/49 L 05/31/25 21:32 Pulse Oximetry 93 05/31/25 21:32 Oxygen Delivery Room Air 05/31/25 21:32 Temperature 99.3 F 05/31/25 22:32 Pulse Rate 95 05/31/25 22:32 Respiratory Rate 14 05/31/25 22:32 Blood Pressure 105/59 L 05/31/25 22:32 Pulse Oximetry 95 05/31/25 22:35 Oxygen Delivery Room Air 05/31/25 22:35 Medical Decision Making MDM Narrative Medical decision making narrative: The patient was evaluated by myself in the emergency department. History is obtained from patient who is an independent historian along with his present at bedside and physical exam was performed. External medical records were reviewed at this time. IV was established and pertinent tests were ordered. EKG was obtained which revealed a paced rhythm rate of 86 beats per minute, good capture, negative Sgarbossa. EKG was independently interpreted by me and is currently pending official cardiology read. Laboratory results obtained revealing no acute process. Imaging studies obtained included CXR which was independently interpreted by me revealing no acute cardiopulmonary process, which is pending final radiology interpretation. CT angiogram chest PE protocol was obtained at this time and bloody interpreted by me revealing: IMPRESSION: No CT evidence of acute pulmonary embolus. No acute process detected in the chest. Asymmetric right gynecomastia. Recommend nonemergent but timely breast ultrasound and mammography for further evaluation. Differential diagnosis considerations include acute viral syndrome, infectious process such as pneumonia, COPD/asthma, CHF. Comorbidities impacting this visit include none. I have evaluated and discussed social determinants of health with the patient that could potentially impact subsequent diagnosis and treatment plans. On repeat assessment of the patient, reevaluation revealed that the patient is doing well and is in no acute distress. Patient symptoms have improved since he arrived to our emergency department. Repeat vital signs were all reviewed and noted to be stable. Differential diagnosis and treatment plan were discussed with the patient at bedside. Patient agrees with discussion and after shared medical decision making agrees with discharge. All questions were answered to the patient's satisfaction. Patient will follow up with his PCP in 3-5 days. Patient was provided with strict return precautions and instructed to return to the emergency department if any new or worsening symptoms develop. The patient was discharged in stable condition. Vital Signs Vital Signs: Vital Signs Temperature 98.4 F 05/31/25 21:32 Pulse Rate 84 05/31/25 21:32 Respiratory Rate 18 05/31/25 21:32 Blood Pressure 93/49 L 05/31/25 21:32 Pulse Oximetry 93 05/31/25 21:32 Oxygen Delivery Room Air 05/31/25 21:32 Temperature 99.3 F 05/31/25 22:32 Pulse Rate 95 05/31/25 22:32 Respiratory Rate 14 05/31/25 22:32 Blood Pressure 105/59 L 05/31/25 22:32 Pulse Oximetry 95 05/31/25 22:35 Oxygen Delivery Room Air 05/31/25 22:35 Lab Data 05/31/25 21:42 05/31/25 21:42 Labs: Lab Results 05/31/25 05/31/25 Range/Units 21:42 22:36 WBC 10.5 H (4.5-10.0) K/mm3 RBC 4.20 L (4.6-6.20) M/mm3 Hgb 12.7 L (14.0-18.0) g/dL Hct 38.5 L (42.0-52.0) % MCV 91.7 (80-100) fl MCH 30.2 (26-34) pg MCHC 33.0 (32-36) g/dl RDW 12.6 (11.5-14.5) % Plt Count 196 (150-375) k/mm3 MPV 9.0 (7.4-10.4) fl Immature Gran % (Auto) 0.3 (0-0.5) % Neut % (Auto) 86.4 H (45.5-73.1) % Lymph % (Auto) 7.1 L (18.3-44.2) % Humphreys % (Auto) 5.1 (2.6-8.5) % Eos % (Auto) 0.5 (0-4.4) % Baso % (Auto) 0.6 (0.2-1.2) % Lymph # (Auto) 0.74 L (0.9-3.2) K/mm3 Humphreys # (Auto) 0.5 (0.1-0.6) K/mm3 Eos # (Auto) 0.1 (0-0.3) K/mm3 Baso # (Auto) 0.1 (0.0-0.1) K/mm3 Abs Immat Gran (auto) 0.03 (0.00-0.031) K/mm3 Absolute Neuts (auto) 9.1 H (1.3-6.7) K/mm3 Absolute Nucleated RBC 0.000 (0.0-0.012) K/mm3 Nucleated RBC % 0.0 (0.0-0.2) % Sodium 134 L (137-145) mmol/L Potassium 4.0 (3.4-5.0) mmol/L Chloride 103 (98-107) mmol/L Carbon Dioxide 23 (22-30) mmol/L Anion Gap 8 (4-12) mmol/L BUN 18 (9-20) mg/dL Creatinine 1.18 (0.7-1.3) mg/dL Estim Creat Clear Calc 60 ml/min Estimated GFR 59 (59 - ) Glucose 119 H (65-110) mg/dL Calcium 8.6 (8.4-10.2) mg/dL Total Bilirubin 0.5 (0.2-1.3) mg/dL AST 31 (17-59) U/L ALT 24 (6-50) U/L Alkaline Phosphatase 57 (38-126) U/L Troponin I < 0.012 (0.000-0.034) ng/mL NT-Pro-B Natriuret Pep 1630 H (19.9-100) pg/mL Total Protein 6.9 (6.3-8.2) g/dL Albumin 3.9 (3.5-5.1) g/dL Influenza A (RT-PCR) Negative (Negative) Influenza B (RT-PCR) Negative (Negative) RSV (RT-PCR) Negative (Negative) SARS-CoV-2 RNA (RT-PCR) Negative (Negative) Discharge Plan Discharge Clinical Impression: Exertional shortness of breath Patient Disposition: Home Condition: Stable Instructions: Antibiotic Form, Upper Respiratory Infection (ED), Dyspnea (ED) Additional Instructions: Please follow-up with your family doctor within the next 3-5 days. Return emergency department if any new or worsening symptoms develop. Patient Language: Brazilian Prescriptions: No Action losartan 50 mg tablet 50 mg PO DAILY aspirin 81 mg tablet,delayed release (DR/EC) 81 mg PO DAILY clopidogrel 75 mg tablet 75 mg PO DAILY Qty: 90 3RF pantoprazole [Protonix] 40 mg tablet,delayed release (DR/EC) 40 mg PO QAM Qty: 30 0RF up4 Probiotics-Mind and Body 1 billion cell tablet,chewable 1 tablet PO .qd Qty: 90 0RF metoprolol succinate [Toprol XL] 25 mg tablet extended release 24 hr 12.5 mg PO DAILY Rx Instructions: as per cardio pantoprazole [Protonix] 40 mg tablet,delayed release (DR/EC) 40 mg PO HS 28 Days Qty: 28 0RF magnesium oxide 400 mg (241.3 mg magnesium) tablet 400 mg PO DAILY multivitamin [Daily Multi-Vitamin] Tablet 1 tablet PO DAILY metformin 500 mg tablet extended release 24 hr 500 mg PO QPM azelastine 137 mcg (0.1 %) aerosol,spray 137 mcg NASAL Q12H PRN (Reason: allergy symptoms) Rx Instructions: administer into each nostril fluticasone propionate 50 mcg/actuation spray,suspension 1 spray NASAL DAILY PRN (Reason: allergy symptoms) Rx Instructions: administer into each nostril atorvastatin 40 mg tablet See Rx Instructions .ROUTE .COMPLEX Qty: 90 0RF Dose Instruction: TAKE ONE TABLET BY MOUTH ONCE DAILY Rx Instructions: TAKE ONE TABLET BY MOUTH ONCE DAILY citalopram 20 mg tablet See Rx Instructions .ROUTE .COMPLEX Qty: 100 1RF Dose Instruction: TAKE ONE TABLET BY MOUTH ONCE DAILY Rx Instructions: TAKE ONE TABLET BY MOUTH ONCE DAILY gabapentin 300 mg capsule See Rx Instructions .ROUTE .COMPLEX Qty: 180 1RF Dose Instruction: TAKE TWO CAPSULES BY MOUTH AT BEDTIME Rx Instructions: TAKE TWO CAPSULES BY MOUTH AT BEDTIME Follow-up/Referrals: Jose Alonso MD [Primary Care Provider] - 3 Days Time of Disposition: 00:01
[2025-05-31 22:35] VITALS: O2SAT 95
[2025-05-31 23:11] LABS: NT Pro B Type Natriuretic Pept 1630 pg/mL (19.9-100); Troponin I < 0.012 ng/mL (0.000-0.034)
[2025-05-31 23:16] LABS: Influenza A QL RT-PCR Negative (Negative); Influenza B QL RT-PCR Negative (Negative); RSV RNA, RT-PCR Negative (Negative); SARS-CoV-2 RNA PCR Negative (Negative)
[2025-06-01 00:09] VITALS: BP 99/49; PULSE 72; RESP 24; O2SAT 93
[2025-06-01 00:25] VITALS: BP 98/55; PULSE 73; RESP 20; TEMP 37.2; O2SAT 96
== END 2025-06-01 00:22 | disposition home or self-care (01) ==
PROVIDERS: Emergency Provider Emergency Medicine; PCP Family Medicine
DX: R06.02 Shortness of breath (principal); Z20.822 Contact with and (suspected) exposure to COVID-19; I25.2 Old myocardial infarction; I25.10 Atherosclerotic heart disease of native coronary artery without angina pectoris; K21.9 Gastro-esophageal reflux disease without esophagitis; E78.2 Mixed hyperlipidemia; E66.9 Obesity, unspecified; Z68.35 Body mass index [BMI] 35.0-35.9, adult; N40.0 Benign prostatic hyperplasia without lower urinary tract symptoms; G62.9 Polyneuropathy, unspecified; G25.81 Restless legs syndrome; F33.9 Major depressive disorder, recurrent, unspecified; Z98.84 Bariatric surgery status; Z95.1 Presence of aortocoronary bypass graft; Z95.5 Presence of coronary angioplasty implant and graft; Z95.0 Presence of cardiac pacemaker; Z87.891 Personal history of nicotine dependence; Z79.02 Long term (current) use of antithrombotics/antiplatelets; Z79.82 Long term (current) use of aspirin; Z79.84 Long term (current) use of oral hypoglycemic drugs; Z79.899 Other long term (current) drug therapy; I44.4 Left anterior fascicular block; R94.31 Abnormal electrocardiogram [ECG] [EKG]
CPT/HCPCS: 36415; 71046; 71275; 80053; 83880; 84484; 85025; 87637; 93005; 99284; Q9967

== ENCOUNTER 2025-06-04 00:41 | Day surgery (SDC) | payer MEDICARE, SELFPAY ==
[2025-05-27 14:21] VITALS: BMI 34.0
--- NOTE | 2025-05-27 15:20 | PC.NURSE ---
Patient was seen in the ED 05/22/25 for GI Bleed and anemia. He states his enrollment specialist Dr. Morgan is in [place] currently but called him and told him to stop his Plavix until after his EGD/COLON scheduled on 06/04/25 and then to restart if okay with GI. He states his last dose was on 05/23/25. I have spoken with Dr. Morgan office and there is no notes in the chart regarding this but message is sent to covering enrollment specialist and Dr. Morgan will be back in office on Saturday05/31/25.
--- NOTE | 2025-06-02 10:09 | SUR.PREOP ---
Pt called this am to let us know he was in the ER recently with complaints of SOB on exertion. Patient wanted to make sure he could proceed with his prep. Patient's recent ER visits and pt's history reviewed with Dr. Wilson Anesthesiologist. Dr. Wilson requested that the patient's H and H be checked in pre-op the day of his procedure. Orders were put in per his request.
--- OUTSIDE RECORDS SUMMARY | 2025-06-04 00:44 | XMS_ITS | Continuity of Care Document ---
Author Organization [facility] Address [address] [place] [address] Phone Care Team Providers Care Process Planner Name Role Phone Terell Giordano PT Unavailable Unavailable Procedures Procedure Date Neuromuscular Re-Ed Therapeutic Activities Therapeutic Exercise Manual Therapy Therapeutic Activities Therapeutic Exercise Neuromuscular Re-Ed Manual Therapy PT Evaluation Moderate Complexity Neuromuscular Re-Ed Therapeutic Activities Advance Directives Directive Yes / No Effective Date File Name No Information Encounters Encounter Description Practice Location Reason(s) For Visit Diagnoses Date Provider Providers Copied on Encounter [facility], [address], [id number], tel:[phone] [place] No Information Pasquale Figueredo. . Referring Provider: Fei Pisano, [address] [facility] [address], [place], [address]. tel:[phone] [facility] [address], [id number], tel:[phone] [place] No Information Pasquale Rm Referring Provider: Fei Pisano, [address] [facility] [address], [place], [address]. tel:[phone] [facility], [address] [email or web address] [address], [place], [place], [id number], tel:[phone] [place] No Information Pasquale Figueredo. . Referring Provider: [address], [place], [address]. tel:[phone] Family History Family Member Type Diagnosis Age At Onset No Information Payers Payer name Insurance type Covered alliance party ID Authorkatey blanchard(s) A[employer]na Medicare Replacement CI [id number] Social History Type Description Quantity Date Captured Comments Sex Male Smoking Status No Information Chief Complaint And Reason For Visit No Information Reason For Referral Reason For Referral No Information Plan Of Treatment Date Type Action Status Referral Ordered: PCP timeframe: 1 week. (related to Overweight) ordered Referral Ordered: Weight management: Referral to physician timeframe: 1 Month. (related to Overweight) ordered History Of Present Illness Encounter Date Complaint History Of Prese nt Illness No Information Functional Status Date Functional Assessmen t No Information Instructions Date Instruction Additional Infor mation No Information Assessments Type Assessment Date No Information Patient Care Teams Name Effective Dates (start - stop) Status Members No Information
--- OUTSIDE RECORDS SUMMARY | 2025-06-04 00:44 | XMS_ITS | Clinical Summary ---
Author Organization [facility] Address [address] [place]: Epic Prelude ADT [place]ASER [address] Care Team Providers Care Lean Process Deployment Consultant Name Role Phone Unavailable Primary Care Provider [...] bedtime. 90 Tablet 3 10/09/2023 2:13 PM SALES SERVICE REP 3 Active losartan (COZAAR) 50 mg tablet Take 1 Tablet (50 mg) by mouth daily. 90 Tablet 2 10/09/2023 2:13 PM SALES SERVICE REP 3 Active atorvastatin (LIPITOR) 40 mg tablet [...] TIMES DAILY 15 mL 01/15/2024 12:36 PM SALES SERVICE REP 4 Active azelastine (ASTELIN) 137 mcg/actuation nasal spray ADMINISTER 1 SPRAY IN EACH NOSTRIL EVERY 12 HOURS. 30 mL 2 01/27/2024 11:24 AM SALES SERVICE REP 4 Active fluticasone propionate (FLONASE) 50 mcg/spray Peak, Suspension nasal inhaler ADMINISTER 1 SPRAY IN EACH NOSTRIL ONCE DAILY. 16 Gram 2 01/27/2024 11:24 AM SALES SERVICE REP 4 Active HYDROcodone-anika taminophen (NORCO) 5-325 mg [...] daily. 90 Tablet 2 10/20/2024 2:29 PM SALES SERVICE REP 4 Active metoprolol succinate (TOPROL XL) 25 [...] INFLUENZA VACCINE (#1) 2025 10/22/2023 Insurance RX [employer] Medicare Part D RX [employer] (INTERNAL) [facility]
--- OUTSIDE RECORDS SUMMARY | 2025-06-04 00:44 | XMS_ITS | Referral Summary ---
Author Organization [facility] Physician Of [facility] [address] [place] [address] Care Team Providers Care Claims Supervisor Name Role Phone Lisa Gonzalez MD Primary Care Provider Lisa Gonzalez MD Unavailable [phone] Encounters Date Type Department Care Team Description 05/19/[address] 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 Gender Identity Not on file Sexual Orientation [...] on file Medical Devices Implanted Type Area Sulfuric Acid Plant Supervisor Device Identifier Shelf Expiration Date Model / Serial / Lot Synthes 3.5mm 6mm 22mm 2.5mm Self Tap Small Hexagonal Socket Low Profile 204.822 - [id number] Implanted:Qty: 2 on 04/14/2024 by Wilton Domingo MD at [facility] Left: Elbow Synthes I 204.822 / / Synthes 2.7mm 60mm Self Tap St[employer]rive Elbow Metaphyseal T8 Screw Bone 02.118.560 - [id number] Implanted:Qty: 2 on 04/14/2024 by Wilton Domingo MD at [facility] Left: Elbow Synthes I 02.118.560 / / Synthes 2.7mm 34mm Self Tap St[employer]rive Elbow Metaphyseal T8 Screw Bone 02.118.534 - [id number] Implanted:Qty: 1 on 04/14/2024 by Wilton Domingo MD at [facility] Left: Elbow Synthes I 02.118.534 / / Synthes 2.7mm 42mm Self Tap [employer] Elbow Metaphyseal T8 Screw Bone 02.118.542 - [id number] Implanted:Qty: 1 on 04/14/2024 by Wilton Domingo MD at [facility] Left: Elbow Synthes I 02.118.542 / / Synthes Lcp Combi 90mm 2 Hole Variable Angle Taper Tip Round Profile 02.107.302s - [id number] Implanted:Qty: 1 on 04/14/2024 by Wilton Domingo MD at [facility] Left: Elbow Synthes I 12/25/2033 02.107.302S / / [id number] Insurance [employer] PPO [employer] Advance Directives For more information, please contact: [phone] * Full Code (Latest Code Status on File) Date Activated Date Inactivated Comments 02/24/2021 2:39 PM 03/04/2021 6:15 PM Care Teams Claims Supervisor Relationship Specialty Start Date End Date Lisa Gonzalez MD [address] [place] [address] PCP - General 08/21/17 Lisa Gonzalez MD [address] [place] [address] 08/21/17
--- OUTSIDE RECORDS SUMMARY | 2025-06-04 00:44 | XMS_ITS | Clinical Summary ---
Author Organization [facility] Physician Of [facility] [address] [place] [id number] Care Team Providers Care Kindergarten Teacher Assistant Name Role Phone Lisa Gonzalez MD Primary Care Provider Lisa Gonzalez MD Unavailable [phone] Allergies Active Allergy Reactions Criticality Noted Date [...] as needed 1 Active cholecalciferol (VITAMIN D-3) 05758 unit capsule Take 2 capsules (20,000 Units [...] elbow 04/02/2024 Coronary artery disease invo lving [place] coronary artery of [place] heart without angina pectoris 02/21/2021 Overview (02/21/2021): Added automatically from request for surgery [id number] Encounters Date Type Department Care Team Description 05/19/2025 Telephone [facility] Gastroenterology at [address] [phone] Betty Caldwell MD Colonoscopy; EGD [...] on file 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 Gender Identity Not on file Sexual Orientation [...] 2025 09/11/2013 Medical Devices Implanted Type Area Seismic Prospecting Observer Device Identifier Shelf Expiration Date Model / Serial / Lot Synthes 3.5mm 6mm 22mm 2.5mm Self Tap Small Hexagonal Socket Low Profile 204.822 - [id number] Implanted:Qty: 2 on 04/14/2024 by Wilton Domingo MD at [facility] Left: Elbow Synthes I 204.822 / / Synthes 2.7mm 60mm Self Tap Stardrive Elbow Metaphyseal T8 Screw Bone 02.118.560 - [id number] Implanted:Qty: 2 on 04/14/2024 by Wilton Domingo MD at [facility] Left: Elbow Synthes I 02.118.560 / / Synthes 2.7mm 34mm Self Tap Stardrive Elbow Metaphyseal T8 Screw Bone 02.118.534 - [id number] Implanted:Qty: 1 on 04/14/2024 by Wilton Domingo MD at [facility] Left: Elbow Synthes I 02.118.534 / / Synthes 2.7mm 42mm Self Tap St[employer]rive Elbow Metaphyseal T8 Screw Bone 02.118.542 - [id number] Implanted:Qty: 1 on 04/14/2024 by Wliton Domingo MD at [facility] Left: Elbow Synthes I 02.118.542 / / Synthes Lcp Combi 90mm 2 Hole Variable Angle Taper Tip Round Profile 02.107.302s - [id number] Implanted:Qty: 1 on 04/14/2024 by Wilton Domingo MD at [facility] Left: Elbow Synthes I 12/25/2033 02.107.302S / / [id number] Insurance [employer] CHOICE MEDICARE PPO [employer] MEDICARE PPO [employer] CHOICE MEDICARE PPO Advance Directives For more information, please contact: [phone] * Full Code (Latest Code Status on File) Date Activated Date Inactivated Comments 02/24/2021 2:39 PM 03/04/2021 6:15 PM Care Teams Kindergarten Teacher Assistant Relationship Specialty Start Date End Date Lisa Gonzalez MD [address] [facility] [address] [place] [address] PCP - General 08/21/17 Lisa Gonzalez MD [address] [place] [id number] 08/21/17
[2025-06-04 08:36] VITALS: BP 128/81; PULSE 110; RESP 20; TEMP 36.8; O2SAT 97
[2025-06-04] MEDS: LACTATED RINGERS 1,000 ML 150 ML IV CONT (08:42)
[2025-06-04] MEDS: SIMETHICONE ORAL SUSPENSION 20 MG/0.3 ML 30 ML BOTTLE 1.8 ML PO (08:43)
[2025-06-04 08:47] LABS: Hematocrit 40.3 % (42.0-52.0); Hemoglobin 13.4 g/dL (14.0-18.0)
--- NOTE | 2025-06-04 09:12 | WPDANESEPPF ---
Anes - Initial Pre Proc Eval Procedure: Operation Date: 06/04/25 10:00 Proposed Procedures p EGD & Diagnostic Colonoscopy - Pritesh Winters MD Date/Time: 06/04/25 09:12 Surgeon: Pritesh Winters MD Pre Op Diagnosis: Anemia, unspecified Patient Data Age: 79 Gender: M Height: 1.88 m Weight: 120.8 kg Last Vital Signs Temp 36.8 C 06/04/25 08:36 Pulse 110 H 06/04/25 08:36 Resp 20 06/04/25 08:36 BP 128/81 06/04/25 08:36 Pulse Ox 97 06/04/25 08:36 O2 Del Method Room Air 06/04/25 08:36 Allergies Allergy/AdvReac Type Severity Reaction Status Date / Time penicillin G Allergy Mild hives Verified 06/04/25 08:32 Penicillins Allergy Mild hives Verified 06/04/25 08:32 Home Medications ?Medication ?Instructions ?Recorded ?Confirmed ?Type clopidogrel 75 mg tablet 75 mg PO DAILY #90 tabs 12/01/20 06/04/25 Rx pantoprazole 40 mg tablet,delayed 40 mg PO QAM #30 tabs 02/19/22 05/27/25 Rx release (Protonix) Bacillus coagulans-Bacillus 1 tablet PO .qd #90 tabs 12/25/22 05/27/25 Rx subtilis 1 billion cell chewable tablet (up4 Probiotics-Mind and Body) atorvastatin 40 mg tablet See Rx Instructions .Route 03/27/23 06/04/25 Rx .COMPLEX #90 tabs metoprolol succinate 25 mg 12.5 mg PO DAILY 01/22/24 06/04/25 History tablet,extended release 24 hr (Toprol XL) citalopram 20 mg tablet See Rx Instructions .Route 12/28/24 06/04/25 Rx .COMPLEX #100 tabs aspirin 81 mg tablet,delayed 81 mg PO DAILY 02/23/25 06/04/25 History release losartan 50 mg tablet 50 mg PO DAILY 02/23/25 06/04/25 History gabapentin 300 mg capsule See Rx Instructions .Route 03/29/25 06/04/25 Rx .COMPLEX #180 caps pantoprazole 40 mg tablet,delayed 40 mg PO HS 4 weeks #28 tabs 05/22/25 06/04/25 Rx release (Protonix) azelastine 137 mcg (0.1 %) nasal 137 mcg intranasal Q12H PRN 05/27/25 06/04/25 History spray allergy symptoms fluticasone propionate 50 1 spray intranasal DAILY PRN 05/27/25 06/04/25 History mcg/actuation nasal allergy symptoms spray,suspension magnesium oxide 400 mg (241.3 mg 400 mg PO DAILY 05/27/25 06/04/25 History magnesium) tablet metformin 500 mg tablet,extended 500 mg PO QPM 05/27/25 06/04/25 History release 24 hr multivitamin (Daily Multi-Vitamin 1 tablet PO DAILY 05/27/25 06/04/25 History tablet) Laboratory Tests 06/04/25 06/04/25 08:41 08:42 Hgb 13.4 L g/dL (14.0-18.0) Hct 40.3 L % (42.0-52.0) POC Capillary Glucose 112 H mg/dl (65-105) Patient hx anesthesia problems: none Family hx anesthesia problems: none Results Review: All pre-operative results and documents have been reviewed as part of the pre-operative evaluation. [facility] Past Medical History Medical History Acute bronchitis COVID-19 long hauler COVID-19 Constipation Sinusitis Subacute maxillary sinusitis Diverticulitis Obesity (BMI 30-39.9) Restless leg syndrome Presence of cardiac pacemaker History of [place] (myocardial infarction) GERD (gastroesophageal reflux disease) Neuropathy Major depressive disorder, recurrent, moderate Angelia's deformity History of stress test MDD (major depressive disorder) Mixed hyperlipidemia Benign reactive hypertension Glucose tolerance decreased BPH (benign prostatic hyperplasia) Myocardial infarction Gynecomastia, male CAD (coronary atherosclerotic disease) Surgical History Surgical History S/P CABG x 3 Bariatric surgery status History of left mastectomy S/P coronary artery stent placement Family History Family History Sibling Patient's sister is in good health Father Cerebrovascular accident Patient's father is Other Family history of cardiovascular disease Social History Social History Social History: Smoking status: Former smoker Tobacco type: cigarettes Second hand tobacco smoke exposure: No Alcohol intake: former Drinks per week: 5 Substance use: never Substance use type: does not use Do You Feel Safe in your Home?: Yes Lack of Transportation: No Lack of Food: Never True Current Housing: I Have Housing Concerned About Future Housing: No Difficulty Paying Gas/Electric Bills: No Difficulty Paying for Meds: No Currently Unemployed: No Education: Don't Know Difficulty w/ Childcare or Family Care: No Living arrangements: with family Occupation/Education: occupation Gender identity (if verbalized by the patient): Male Sexual Orientation (if Verbalized by the Patient): Straight or Heterosexual Spiritual care concerns: No Anes - Eval Final PreProcedure Day of Procedure 06/04/25 09:12 Patient weight: obese Heart: regular rate and rhythm Lungs: clear to auscultation Airway: Mallampati scale class II Neurological: alert and oriented Last oral intake: >/= 8 hours ASA classification: III Emergent: no Anesthetic plan: proceed Anesthesia type and monitoring: general GIVS and standard monitoring Results Review: All pre-operative results and documents have been reviewed as part of the pre-operative evaluation. Informed Consent: The patient's anesthetic plan and its attendant risks and benefits were discussed with the patient/family/POA. Questions were solicited and answers provided to the satisfaction of the patient/family/POA.
--- NOTE | 2025-06-04 09:34 | PM.IMHP ---
H&P: HPI History of Present Illness Date/Time: 06/04/25 09:34 Chief Complaint: History of recent melena Narrative: the patient was seen in the emergency room on 05/14/2025, endorsing 2 days of melena. However, the ER physician could not verify melena on rectal examination. His hemoglobin did not drop. He was referred for EGD and colonoscopy. The last colonoscopy was more than 12 years ago. Review of Systems Review of Systems: All systems reviewed & are unremarkable except as noted in HPI and below PMFSH Past Medical History Medical History Acute bronchitis COVID-19 long hauler COVID-19 Constipation Sinusitis Subacute maxillary sinusitis Diverticulitis Obesity (BMI 30-39.9) Restless leg syndrome Presence of cardiac pacemaker History of [place] (myocardial infarction) GERD (gastroesophageal reflux disease) Neuropathy Major depressive disorder, recurrent, moderate Angelia's deformity History of stress test MDD (major depressive disorder) Mixed hyperlipidemia Benign reactive hypertension Glucose tolerance decreased BPH (benign prostatic hyperplasia) Myocardial infarction Gynecomastia, male CAD (coronary atherosclerotic disease) Surgical History Surgical History S/P CABG x 3 Bariatric surgery status History of left mastectomy S/P coronary artery stent placement Family History Family History Sibling Patient's sister is in good health Father Cerebrovascular accident Patient's father is Other Family history of cardiovascular disease Social History Social History Social History: Smoking status: Former smoker Tobacco type: cigarettes Second hand tobacco smoke exposure: No Alcohol intake: former Drinks per week: 5 Substance use: never Substance use type: does not use Do You Feel Safe in your Home?: Yes Lack of Transportation: No Lack of Food: Never True Current Housing: I Have Housing Concerned About Future Housing: No Difficulty Paying Gas/Electric Bills: No Difficulty Paying for Meds: No Currently Unemployed: No Education: Don't Know Difficulty w/ Childcare or Family Care: No Living arrangements: with family Occupation/Education: occupation Gender identity (if verbalized by the patient): Male Sexual Orientation (if Verbalized by the Patient): Straight or Heterosexual Spiritual care concerns: No Meds Home Medications and Allergies Home Medications ?Medication ?Instructions ?Recorded ?Confirmed ?Type clopidogrel 75 mg tablet 75 mg PO DAILY #90 tabs 12/01/20 06/04/25 Rx pantoprazole 40 mg tablet,delayed 40 mg PO QAM #30 tabs 02/19/22 05/27/25 Rx release (Protonix) Bacillus coagulans-Bacillus 1 tablet PO .qd #90 tabs 12/25/22 05/27/25 Rx subtilis 1 billion cell chewable tablet (up4 Probiotics-Mind and Body) atorvastatin 40 mg tablet See Rx Instructions .Route 03/27/23 06/04/25 Rx .COMPLEX #90 tabs metoprolol succinate 25 mg 12.5 mg PO DAILY 01/22/24 06/04/25 History tablet,extended release 24 hr (Toprol XL) citalopram 20 mg tablet See Rx Instructions .Route 12/28/24 06/04/25 Rx .COMPLEX #100 tabs aspirin 81 mg tablet,delayed 81 mg PO DAILY 02/23/25 06/04/25 History release losartan 50 mg tablet 50 mg PO DAILY 02/23/25 06/04/25 History gabapentin 300 mg capsule See Rx Instructions .Route 03/29/25 06/04/25 Rx .COMPLEX #180 caps pantoprazole 40 mg tablet,delayed 40 mg PO HS 4 weeks #28 tabs 05/22/25 06/04/25 Rx release (Protonix) azelastine 137 mcg (0.1 %) nasal 137 mcg intranasal Q12H PRN 05/27/25 06/04/25 History spray allergy symptoms fluticasone propionate 50 1 spray intranasal DAILY PRN 05/27/25 06/04/25 History mcg/actuation nasal allergy symptoms spray,suspension magnesium oxide 400 mg (241.3 mg 400 mg PO DAILY 05/27/25 06/04/25 History magnesium) tablet metformin 500 mg tablet,extended 500 mg PO QPM 05/27/25 06/04/25 History release 24 hr multivitamin (Daily Multi-Vitamin 1 tablet PO DAILY 05/27/25 06/04/25 History tablet) Allergies Allergy/AdvReac Type Severity Reaction Status Date / Time penicillin G Allergy Mild hives Verified 06/04/25 08:32 Penicillins Allergy Mild hives Verified 06/04/25 08:32 Vital Signs Vital Signs - 24 hr 06/04/25 08:36 Temperature 98.2 F Pulse Rate 110 H Respiratory Rate 20 Blood Pressure 128/81 Pulse Oximetry 97 Oxygen Delivery Room Air Exam Const: General: cooperative and healthy appearing Resp: Effort & Inspection: normal respiratory effort and able to speak in complete sentences Auscultation: clear to auscultation bilaterally Cardio: Rate: regular rate Rhythm: regular rhythm GI: Inspection: normal to inspection GI Palp: No No hepatosplenomegaly present Auscultation: normal bowel sounds Rectal Exam: deferred Skin: General skin exam: normal color Psych: Appearance: grossly normal Mental Status: mental status grossly normal H&P: Results Labs Labs: Short CBC 06/04/25 Range/Units 08:41 Hgb 13.4 L (14.0-18.0) g/dL Hct 40.3 L (42.0-52.0) % Assessment and Plan Assessment and plan (1) Melena: Code(s): K92.1 - Melena Status: Acute Assessment and Plan: The patient is deemed a good candidate for the procedures. Consent signed. Will proceed.
[2025-06-04] MEDS: BENZOCAINE (*SP) 60 ML SPRAY CAN (HURRICAINE) 1 SPRAY MUCOUS MEM (09:41)
--- NOTE | 2025-06-04 09:45 | SUR.OPER ---
EGD: [id number] Colon:[id number]
--- NOTE | 2025-06-04 09:50 | S_PTH ---
PATIENT: Erich Andrews LOC: [facility] U#:[id number] AGE/SX: 79/M ROOM: RE06/04/[address]: Pritesh Winters MD : 1945 BED: DIS: 06/04/2025 SPEC #: [id number] RECD: 06/04/25 13:09 STATUS: ERROL REMeredith #: [id number] LENKA: 06/04/25 09:[address]: Pritesh Winters DEPT: [facility] Surgical RECD BY: Renee Oropeza ENTERED: 06/04/25 13:10 SP TYPE: Surgical OTHR DR: Jose Alonso MD Tissues: A - Gastric Biopsy Procedures: Hematoxylin and Eosin Stain Gross and Microscopic Level 4
[2025-06-04] MEDS: SIMETHICONE ORAL SUSPENSION 20 MG/0.3 ML 30 ML BOTTLE 0.6 ML IRRIGATION (10:06)
[2025-06-04 10:21] VITALS: BP 113/69; PULSE 80; RESP 22; O2SAT 99
[2025-06-04 10:31] VITALS: BP 119/73; PULSE 82; RESP 23; O2SAT 98
[2025-06-04 10:41] VITALS: BP 124/82; PULSE 61; RESP 19; O2SAT 100
== END 2025-06-04 10:55 | disposition home or self-care (01) ==
PROVIDERS: Anesthesiology; PCP Family Medicine; Referring Provider Internal Medicine Gastroenterology; Visit Provider Internal Medicine Gastroenterology
PROC: 0DJ08ZZ Inspection of Upper Intestinal Tract, Via Natural or Artificial Opening Endoscopic (ICD-10-PCS; CPT 45378; principal; 2025-06-04 10:00)
DX: D17.5 Benign lipomatous neoplasm of intra-abdominal organs (principal); K57.30 Diverticulosis of large intestine without perforation or abscess without bleeding; K25.3 Acute gastric ulcer without hemorrhage or perforation; K29.50 Unspecified chronic gastritis without bleeding; E78.2 Mixed hyperlipidemia; I10 Essential (primary) hypertension; N40.0 Benign prostatic hyperplasia without lower urinary tract symptoms; I25.10 Atherosclerotic heart disease of native coronary artery without angina pectoris; G25.81 Restless legs syndrome; I25.2 Old myocardial infarction; K21.9 Gastro-esophageal reflux disease without esophagitis; G62.9 Polyneuropathy, unspecified; F33.8 Other recurrent depressive disorders; E66.9 Obesity, unspecified; Z68.34 Body mass index [BMI] 34.0-34.9, adult; Z79.02 Long term (current) use of antithrombotics/antiplatelets; Z79.82 Long term (current) use of aspirin; Z79.84 Long term (current) use of oral hypoglycemic drugs; Z98.84 Bariatric surgery status; Z95.1 Presence of aortocoronary bypass graft; Z95.5 Presence of coronary angioplasty implant and graft; Z95.0 Presence of cardiac pacemaker; Z90.12 Acquired absence of left breast and nipple; Z87.891 Personal history of nicotine dependence; Z87.19 Personal history of other diseases of the digestive system; Z82.49 Family history of ischemic heart disease and other diseases of the circulatory system
CPT/HCPCS: 43239; 45378; 36415; 82948; 85014; 85018; 88305; J2003; J2704; J7120